=== PATIENT | male | born 1960 | race Caucasian/White ===

== ENCOUNTER 2018-09-16 13:07 | Inpatient (IN) | payer MEDICAID, MEDICARE ==
[~2018-09-16] VITALS: Ht 167.6 cm; Wt 68.0 kg
[~2018-09-16 13:07] MED LIST: CARV12.53 PO; CARV3.12 PO; CARV3.122 PO; FURO20TA4 PO; FURO40TA4 PO; LISI2.5T PO; LOVA10TA PO; LOVA20TA2 PO; POTA10TA36 PO
--- NOTE | 2018-09-16 13:30 | NUR ---
TO ROOM NO NEW C/O
[2018-09-16] MEDS ORDERED: ONDANSETRON 4 MG/2 ML (SDV) Z0FRAN IVP ONE (13:45)
[2018-09-16] MEDS ORDERED: NS IV 1000 ML 1,000 ML IV SCH (13:45)
[2018-09-16] MEDS ORDERED: fentaNYL INJECTION 100 MCG/2 ML AMP IVP ONE ×2 (13:45→14:30)
[2018-09-16 13:56] LABS: BASOPHILS % (AUTO) 0 % (0-10); EOSINOPHILS # (AUTO) 0.1 10^3/uL (0.0-0.3); EOSINOPHILS % (AUTO) 0 % (0-10); HEMATOCRIT 48 % (40-54); HEMOGLOBIN 16.7 G/DL (13.3-17.7); LYMPHOCYTES # (AUTO) 1.3 X 10^3 (1.0-4.0); LYMPHOCYTES % (AUTO) 9 % (12-44); MEAN CORPUSCULAR HEMOGLOBIN 35 PG (25-34); MEAN CORPUSCULAR HGB CONC 35 G/DL (32-36); MEAN CORPUSCULAR VOLUME 102 FL (80-99); MONOCYTES # (AUTO) 1.3 X 10^3 (0.0-1.0); MONOCYTES % (AUTO) 9 % (0-12); NEUTROPHILS % (AUTO) 82 % (42-75); PLATELET COUNT 204 10^3/uL (130-400); WHITE BLOOD COUNT 14.6 10^3/uL (4.3-11.0)
[2018-09-16 14:13] LABS: ALANINE AMINOTRANSFERASE 30 U/L (0-55); ALBUMIN 4.6 GM/DL (3.2-4.5); ALKALINE PHOSPHATASE 42 U/L (40-136); AMYLASE 617 U/L (25-125); BILIRUBIN,TOTAL 0.6 MG/DL (0.1-1.0); BUN/CREATININE RATIO 20; CARBON DIOXIDE 19 MMOL/L (21-32); CHLORIDE 107 MMOL/L (98-107); CREATININE SERUM 0.84 MG/DL (0.60-1.30); GFR ESTIMATED > 60; GLUCOSE 134 MG/DL (70-105); LIPASE 1132 U/L (8-78); POTASSIUM 4.9 MMOL/L (3.6-5.0); SODIUM 143 MMOL/L (135-145); TOTAL PROTEIN 8.9 GM/DL (6.4-8.2)
[2018-09-16 14:22] LABS: BAND NEUTROPHILS 3 %; BASOPHILS % (MANUAL) 0 %; EOSINOPHILS % (MANUAL) 0 %; LYMPHOCYTES % (MANUAL) 10 %; MONOCYTES % (MANUAL) 3 %; NEUTROPHILS % (MANUAL) 84 %
[2018-09-16] MEDS ORDERED: PROMETHAZINE INJ 25 MG/ML (PHENERGAN) AMP IVP ONE (14:30)
[2018-09-16] MEDS ORDERED: RECEIVED CONTRAST (Hold Metformin) IV SCH (14:45)
[2018-09-16] MEDS ORDERED: IOHEXOL 350 MG/ML 100 ML (OMNIPAQUE 350) VIAL IV ONE (14:45)
[2018-09-16] MEDS ORDERED: NS 100 ML (IVPB) BAG IV ONE (14:45)
--- NOTE | 2018-09-16 15:27 | Diagnostic Imaging Report ---
INDICATION: Nausea and vomiting and abdominal pain. TECHNIQUE: CT of the abdomen and pelvis obtained with IV contrast bolus. COMPARISON: There is no prior study for comparison. FINDINGS: The visualized portions of the lung bases are clear. There were no pleural fluid collections. There is no free intraperitoneal air. The liver shows no focal lesion. Gallbladder appears unremarkable. The spleen and adrenal glands are normal. The right kidney appears normal. Left kidney shows a couple of benign-appearing cysts, the largest measuring about 4.1 cm in the lateral portion of the left kidney. There is no hydronephrosis. There is edema in the peripancreatic fat, compatible with acute pancreatitis. Some of the edema extends into the root of the mesentery as well as into the left anterior pararenal space. There are stippled calcifications in the pancreatic head and uncinate process, suggesting the patient has had previous episodes of pancreatitis as well. There is no retroperitoneal adenopathy. There is no free ascites. There is no overt bowel obstruction. There are scattered uncomplicated colonic diverticula. There are atherosclerotic calcifications of the aorta and iliac vessels. IMPRESSION: There are stippled calcifications of the pancreatic head and uncinate process which are likely the sequelae of chronic pancreatitis. There is also evidence of acute pancreatitis with edema in the peripancreatic fat, extending into the anterior pararenal space of the retroperitoneum on the left side as well as in the root of the mesentery. There is no well-defined fluid collection or ascites. Benign-appearing cysts are noted in the left kidney. Dictated by: Dictated on workstation # [id number]
--- NOTE | 2018-09-16 16:10 | ED Abdominal Pain ---
General Chief Complaint: Abdominal/GI Problems Stated Complaint: UPPER ABD PAIN AND BACK PAIN;N/V Nursing Triage Note: EPIGASTRIC PAIN STARTING THIS AM. ALSO COMPLAINS OF VOMITING. Sepsis Screen: No Definite Risk Source of Information: Patient Exam Limitations: No Limitations History of Present Illness Date Seen by Provider: Sep 16, 2018 Time Seen by Provider: 13:30 Initial Comments 57-year-old male who presents to the emergency room with complaints of severe nausea, vomiting, abdominal pain that started this morning. He reports periumbilical abdominal pain that does not radiate anywhere but is very sharp. He reports drinking 6 beers a day. Timing/Duration: 4-6 Hours Severity/Quality: Sharp Location: Periumbilical Radiation: No Radiation Associated Symptoms: Nausea/Vomiting Allergies and Home Medications Allergies Coded Allergies: No Known Drug Allergies (Unverified , 09/16/18) Home Medications Carvedilol 12.5 Mg Tablet, 12.5 MG PO BID Prescribed by: SUSI DONALDSON on 04/22/15 1346 Furosemide 40 Mg Tablet, 40 MG PO BID, (Reported) Lisinopril 2.5 Mg Tablet, 2.5 MG PO BID, (Reported) Lovastatin 10 Mg Tablet, 10 MG PO HS, (Reported) Potassium Chloride 10 Meq Tab.er.prt, 10 MEQ PO DAILY, (Reported) Patient Home Medication List Home Medication List Reviewed: Yes Review of Systems Review of Systems Constitutional: no symptoms reported, see HPI Gastrointestinal: See HPI, Abdominal Pain, Nausea, Vomiting All Other Systems Reviewed Negative Unless Noted: Yes Past Suzxjeh-Udsuuq-Grhbii Hx Past Med/Social Hx: Reviewed Nursing Past Med/Soc Hx Patient Social History Alcohol Use: Denies Use Recreational Drug Use: No Smoking Status: Never a Smoker Recent Foreign Travel: No Contact w/Someone Who Travel: No Recent Infectious Disease Expo: No Immunizations Up To Date Tetanus Booster (TDap): More than 5yrs Date of Pneumonia Vaccine: Sep 11, 2014 Date of Influenza Vaccine: Apr 21, 2015 Past Medical History Surgeries: Yes Cardiac, Pacemaker Respiratory: Yes (tobaccoism) COPD, Emphysema Currently Using CPAP: No Currently Using BIPAP: No Cardiac: No (severe nonischemic cardiomyopathy, prior episodes of ventricular tachycardi) Coronary Artery Disease, Hypertension, Peripheral Vascular Neurological: No Reproductive Disorders: No Sexually Transmitted Disease: No HIV/AIDS: No Gastrointestinal: Yes Hepatitis Musculoskeletal: No Endocrine: No Loss of Vision: Denies Hearing Impairment: Hard of Hearing Cancer: No Psychosocial: No Integumentary: No Blood Disorders: No Adverse Reaction/Blood Tranf: No Family Medical History Reviewed Nursing Family Hx ARTERIAL STENTS 19 FATHER Abdominal aortic aneurysm 19 FATHER Alcoholism 19 FATHER Coronary thrombosis 19 FATHER Hypertension 19 FATHER LYMPH NODE CANCEROUS 19 MOTHER Physical Exam Vital Signs Vital Signs - First Documented 09/16/18 13:19 Temp 97.7 Pulse 90 Resp 16 B/P (MAP) 149/94 (112) Pulse Ox 100 Capillary Refill : Less Than 3 Seconds Height/Weight/BMI Height: 5'6.00" Weight: 150lbs. 6.4oz. 68.269867an; BMI Method:Stated General Appearance: WD/WN, no apparent distress Respiratory: chest non-tender, lungs clear, normal breath sounds, no respiratory distress, no accessory muscle use Cardiovascular: normal peripheral pulses, regular rate, rhythm, no edema, no gallop, no JVD, no murmur Gastrointestinal: normal bowel sounds, soft, no organomegaly, no pulsatile mass , tenderness (periumbilical tenderness) Extremities: normal capillary refill Neurologic/Psychiatric: alert, normal mood/affect, oriented x 3 Skin: normal color, warm/dry Progress/Results/Core Measures Results/Orders Lab Results Laboratory Tests Test 09/16/18 13:45 Range/Units White Blood Count 14.6 H 4.3-11.0 10^3/uL Red Blood Count 4.74 4.35-5.85 10^6/uL Hemoglobin 16.7 13.3-17.7 G/DL Hematocrit 48 40-54 % Mean Corpuscular Volume 102 H 80-99 FL Mean Corpuscular Hemoglobin 35 H 25-34 PG Mean Corpuscular Hemoglobin Concent 35 32-36 G/DL Red Cell Distribution Width 14.0 10.0-14.5 % Platelet Count 204 130-400 10^3/uL Mean Platelet Volume 11.0 H 7.4-10.4 FL Neutrophils (%) (Auto) 82 H 42-75 % Lymphocytes (%) (Auto) 9 L 12-44 % Monocytes (%) (Auto) 9 0-12 % Eosinophils (%) (Auto) 0 0-10 % Basophils (%) (Auto) 0 0-10 % Neutrophils # (Auto) 12.0 H 1.8-7.8 X 10^3 Lymphocytes # (Auto) 1.3 1.0-4.0 X 10^3 Monocytes # (Auto) 1.3 H 0.0-1.0 X 10^3 Eosinophils # (Auto) 0.1 0.0-0.3 10^3/uL Basophils # (Auto) 0.0 0.0-0.1 10^3/uL Neutrophils % (Manual) 84 % Lymphocytes % (Manual) 10 % Monocytes % (Manual) 3 % Eosinophils % (Manual) 0 % Basophils % (Manual) 0 % Band Neutrophils 3 % Macrocytosis SLIGHT Sodium Level 143 135-145 MMOL/L Potassium Level 4.9 3.6-5.0 MMOL/L Chloride Level 107 98-107 MMOL/L Carbon Dioxide Level 19 L 21-32 MMOL/L Anion Gap 17 H 5-14 MMOL/L Blood Urea Nitrogen 17 7-18 MG/DL Creatinine 0.84 0.60-1.30 MG/DL Estimat Glomerular Filtration Rate > 60 BUN/Creatinine Ratio 20 Glucose Level 134 H 70-105 MG/DL Calcium Level 10.0 8.5-10.1 MG/DL Corrected Calcium 8.5-10.1 MG/DL Total Bilirubin 0.6 0.1-1.0 MG/DL Aspartate Amino Transf (AST/SGOT) 40 H 5-34 U/L Alanine Aminotransferase (ALT/SGPT) 30 0-55 U/L Alkaline Phosphatase 42 40-136 U/L Total Protein 8.9 H 6.4-8.2 GM/DL Albumin 4.6 H 3.2-4.5 GM/DL Amylase Level 617 H 25-125 U/L Lipase 1132 H 8-78 U/L My Orders Orders - COREEN STEVENS Comprehensive Metabolic Panel (09/16/18 13:37) Lipase (09/16/18 13:37) Amylase (09/16/18 13:37) Ua Culture If Indicated (09/16/18 13:37) Saline Lock/Iv-Start (09/16/18 13:37) Cbc With Automated Diff (09/16/18 13:37) Ct Abdomen/Pelvis W (09/16/18 13:37) Ns Iv 1000 Ml (Sodium Chloride 0.9%) (09/16/18 13:45) Fentanyl Injection (Sublimaze Injection (09/16/18 13:45) Ondansetron Injection (Zofran Injectio (09/16/18 13:45) Manual Differential (09/16/18 13:45) Fentanyl Injection (Sublimaze Injection (09/16/18 14:30) Promethazine Injection (Phenergan Injec (09/16/18 14:30) Iohexol Injection (Omnipaque 350 Mg/Ml 1 (09/16/18 14:45) Contrast Received (Contrast Received) (09/16/18 14:45) Ns (Ivpb) (Sodium Chloride 0.9% Ivpb Bag (09/16/18 14:45) Medications Given in ED Current Medications Medications Dose Ordered Sig/Russel Route Start Time Stop Time Status Last Admin Dose Admin Fentanyl Citrate 50 mcg ONCE ONCE IVP 09/16/18 13:45 09/16/18 13:46 DC 09/16/18 14:08 50 MCG Fentanyl Citrate 50 mcg ONCE ONCE IVP 09/16/18 14:30 09/16/18 14:31 DC 09/16/18 15:28 50 MCG Iohexol 100 ml ONCE ONCE IV 09/16/18 14:45 09/16/18 14:46 DC 09/16/18 14:50 100 ML Ondansetron HCl 4 mg ONCE ONCE IVP 09/16/18 13:45 09/16/18 13:46 DC 09/16/18 14:08 4 MG Promethazine HCl 25 mg ONCE ONCE IVP 09/16/18 14:30 09/16/18 14:31 DC 09/16/18 15:26 25 MG Sodium Chloride 100 ml ONCE ONCE IV 09/16/18 14:45 09/16/18 14:46 DC 09/16/18 14:50 80 ML Vital Signs/I&O 09/16/18 13:19 Temp 97.7 Pulse 90 Resp 16 B/P (MAP) 149/94 (112) Pulse Ox 100 Blood Pressure Mean: 112 Progress Progress Note : Time: 15:37 Progress Note I have seen and evaluated the patient. I've informed him of his imaging studies and laboratory results. I've informed of plans for admission. I discussed the case with Dr. Horton and she agrees to admit the patient to her services. She recommends no IV antibiotics at this time, IV fluids and pain medication and nothing by mouth status. Diagnostic Imaging Diagonstic Imaging: CT Plain Films/CT/US/NM/MRI: abdomen, pelvis Comments NAME: MELISSA ASENCIO [facility] REC#: [id number] PT STATUS: ADM IN : 1960 PHYSICIAN: COREEN STEVENS ADMIT DATE: 09/16/18 Signed Date of Exam: 09/16/18 CT ABDOMEN/PELVIS W INDICATION: Nausea and vomiting and abdominal pain. TECHNIQUE: CT of the abdomen and pelvis obtained with IV contrast bolus. COMPARISON: There is no prior study for comparison. FINDINGS: The visualized portions of the lung bases are clear. There were no pleural fluid collections. There is no free intraperitoneal air. The liver shows no focal lesion. Gallbladder appears unremarkable. The spleen and adrenal glands are normal. The right kidney appears normal. Left kidney shows a couple of benign-appearing cysts, the largest measuring about 4.1 cm in the lateral portion of the left kidney. There is no hydronephrosis. There is edema in the peripancreatic fat, compatible with acute pancreatitis. Some of the edema extends into the root of the mesentery as well as into the left anterior pararenal space. There are stippled calcifications in the pancreatic head and uncinate process, suggesting the patient has had previous episodes of pancreatitis as well. There is no retroperitoneal adenopathy. There is no free ascites. There is no overt bowel obstruction. There are scattered uncomplicated colonic diverticula. There are atherosclerotic calcifications of the aorta and iliac vessels. IMPRESSION: There are stippled calcifications of the pancreatic head and uncinate process which are likely the sequelae of chronic pancreatitis. There is also evidence of acute pancreatitis with edema in the peripancreatic fat, extending into the anterior pararenal space of the retroperitoneum on the left side as well as in the root of the mesentery. There is no well-defined fluid collection or ascites. Benign-appearing cysts are noted in the left kidney. Dictated by: Dictated on workstation # [id number] Dict: 09/16/18 1516 Trans: 09/16/18 1619 Interpreted by: MYA MEI MD Electronically signed by: MYA MEI MD 09/16/18 [id number] Reviewed: Reviewed by Me Departure Communication (Admissions) Time/Spoke to Admitting Phy: 15:37 Dr. Horton Impression Primary Impression: Acute pancreatitis Disposition: 01 HOME, SELF-CARE Condition: Stable/Unchanged Admissions Decision to Admit Reason: Admit from ER (General) Decision to Admit/Date: Sep 16, 2018 Time/Decision to Admit Time: 15:37 Departure-Patient Inst. Referrals: LATRICE HORTON DO (PCP) Primary Care Physician CODY WELLS (Family) Primary Care Physician COREEN STEVENS Sep 16, 2018 16:10
--- NOTE | 2018-09-16 16:25 | NUR ---
Report taken from TRACY Painter at this time. This RN will assume care of this patient when the patient arrives to this floor.
[2018-09-16] MEDS ORDERED: CATHETER FLUSH 10 ML SYR IV PRN (17:30)
[2018-09-16] MEDS ORDERED: PROMETHAZINE INJ 25 MG/ML (PHENERGAN) AMP IV PRN (17:30)
[2018-09-16 17:34] VITALS: BP 169/106
[2018-09-16] MEDS: fentaNYL INJECTION 100 MCG/2 ML AMP IV PRN ×3 (18:00→23:28)
[2018-09-16] MEDS: NS IV 1000 ML 1,000 ML IV SCH (18:00)
[2018-09-16] MEDS: ONDANSETRON 4 MG/2 ML (SDV) Z0FRAN IV PRN (18:00)
[2018-09-16 20:36] VITALS: BP 144/90
[2018-09-16 23:21] VITALS: BP 133/89
[2018-09-17] MEDS: NS IV 1000 ML 1,000 ML IV SCH ×3 (01:57→17:35)
[2018-09-17 03:48] VITALS: BP 136/85
[2018-09-17 04:57] LABS: BASOPHILS % (AUTO) 0 % (0-10); EOSINOPHILS % (AUTO) 0 % (0-10); HEMATOCRIT 45 % (40-54); HEMOGLOBIN 15.9 G/DL (13.3-17.7); LYMPHOCYTES # (AUTO) 1.2 X 10^3 (1.0-4.0); LYMPHOCYTES % (AUTO) 10 % (12-44); MEAN CORPUSCULAR HEMOGLOBIN 36 PG (25-34); MEAN CORPUSCULAR HGB CONC 35 G/DL (32-36); MEAN CORPUSCULAR VOLUME 101 FL (80-99); MEAN PLATELET VOLUME 11.4 FL (7.4-10.4); MONOCYTES # (AUTO) 1.4 X 10^3 (0.0-1.0); MONOCYTES % (AUTO) 11 % (0-12); NEUTROPHILS # (AUTO) 10.1 X 10^3 (1.8-7.8); NEUTROPHILS % (AUTO) 80 % (42-75); PLATELET COUNT 146 10^3/uL (130-400); RED CELL DISTRIBUTION WIDTH 14.1 % (10.0-14.5); WHITE BLOOD COUNT 12.7 10^3/uL (4.3-11.0)
[2018-09-17 05:27] LABS: ALANINE AMINOTRANSFERASE 21 U/L (0-55); ALBUMIN 3.7 GM/DL (3.2-4.5); ALKALINE PHOSPHATASE 36 U/L (40-136); AMYLASE 241 U/L (25-125); BILIRUBIN,TOTAL 0.5 MG/DL (0.1-1.0); BUN/CREATININE RATIO 17; CALCIUM 8.8 MG/DL (8.5-10.1); CARBON DIOXIDE 18 MMOL/L (21-32); CHLORIDE 112 MMOL/L (98-107); CREATININE SERUM 0.71 MG/DL (0.60-1.30); GFR ESTIMATED > 60; GLUCOSE 97 MG/DL (70-105); LIPASE 296 U/L (8-78); POTASSIUM 3.7 MMOL/L (3.6-5.0); SODIUM 143 MMOL/L (135-145); TOTAL PROTEIN 6.9 GM/DL (6.4-8.2)
[2018-09-17 08:45] VITALS: BP 132/85
[2018-09-17] MEDS: fentaNYL INJECTION 100 MCG/2 ML AMP IV PRN ×4 (09:08→23:45)
[2018-09-17] MEDS: ONDANSETRON 4 MG/2 ML (SDV) Z0FRAN IV PRN ×2 (09:08→17:35)
[2018-09-17] MEDS ORDERED: POTA10TA10 PO (11:15)
[2018-09-17] MEDS ORDERED: FURO40TA4 PO (11:15)
[2018-09-17] MEDS ORDERED: LISI2.5T PO (11:15)
[2018-09-17] MEDS ORDERED: CARV12.53 PO (11:15)
--- NOTE | 2018-09-17 11:16 | NUR ---
SPOKE WITH THE PATIENT ABOUT HIS MEDICATIONS. HE LISTED WHAT HE IS TAKING AND HOW HE TAKES THEM. I CALLED TOMY IN [place] TO VERIFY WHAT HAS BEEN FILLED. TOMY FILLED: 08-27-18 LISINOPRIL 2.5MG DAILY 08-27-18 CARVEDILOL 12.5MG BID 03-06-18 FUROSEMIDE 40MG 2 DAILY #180 (STATES HE ONLY TAKES 1 SOMETIMES BUT IS STILL PAST DUE FOR REFILL) 01-14-18 POTASSIUM 10MEQ DAILY #90 (PAST DUE FOR REFILL) 01-17-18 LOVASTATIN 40MG HS #30 (STATES HE IS NO LONGER TAKING, CAN NOT AFFORD) HE STATES HE DOES NOT TAKE ANYTHING OTC.
--- NOTE | 2018-09-17 11:45 | History & Physicial ([facility]) ---
HPI History of Present Illness: 57 yo male presented to ER yesterday due to nausea, vomiting and upper abdominal pain so severe he wanted to pass out. He denies fever, diarrhea, constipation. He was found to have elevated lipase and CT findings consistent with acute and chronic pancreatitis. He denies known history of pancreatitis, but drinks 6-12 beers every day. He is also a smoker. He states he has had heart problems- fluid on lungs and is supposed to be on medications, but hasn't been taking all of them due to cost. He also notes a lump in his right neck for 4-5 months that he had a CT scan done for which was apparently concerning for cancer, he did not follow up right away due to cost concerns, but was having increasing pain and called back for referral and is to see ENT Saturday. He denies unintentional weight loss, states he has always had night sweats his whole life. Source: patient Date seen by provider: Sep 17, 2018 Time Seen by Provider: 10:03 Attending Physician Kanu Bruner MD PCP Nani Horton DO Consult Date of Admission Sep 16, 2018 at 16:00 Home Medications Home Medications Reviewed patient Home Medication Reconciliation performed by pharmacy medication reconciliations accounts payable technician and/or nursing. Patients Allergies have been reviewed. Allergies Coded Allergies: No Known Drug Allergies (Unverified , 09/16/18) OXU-Fyeagi-Dafmmw Hx Patient Social History Alcohol Use: Regular Use Recreational Drug Use: No Smoking Status: Never a Smoker Recent Foreign Travel: No Contact w/other who traveled: No Recent Hopitalizations: No Recent Infectious Disease Expo: No Physical Abuse Screen: No Sexual Abuse: No Immunizations Up To Date Tetanus Booster (TDap): More than 5yrs Date of Pneumonia Vaccine: Sep 11, 2014 Date of Influenza Vaccine: Apr 21, 2015 Past Medical History 1. 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 Chronic Alcohol Use 3. Hepatitis C 4. Tobaccoism 5. Non-compliance with follow up and with medications 6. Coronary Artery Disease- mild non-obstructive to left cx 40% per cath 09/26- [facility] 7. Mild non obstructive atherosclerotic disease in his legs per cath 09/26 8. Several episodes of sinus tach in the V-Tach zone that required ATP per Device Check 02-27-15 9. COPD Past Surgical History 1. Bi-V ICD implantation [facility] 2. Cardiac Cath 09/26 demonstrating minimal non-obstructive coronary artery disease 40% left cx Family Medical History Significant Family History: AAA, Heart Disease, Hypertension Family History: ARTERIAL STENTS 19 FATHER Abdominal aortic aneurysm 19 FATHER Alcoholism 19 FATHER Coronary thrombosis 19 FATHER Hypertension 19 FATHER LYMPH NODE CANCEROUS 19 MOTHER Review of Systems ([facility]) Constitutional: see HPI EENTM: see HPI Respiratory: short of breath Cardiovascular: No chest pain Gastrointestinal: see HPI Genitourinary: no symptoms reported Musculoskeletal: no symptoms reported Skin: no symptoms reported Psychiatric/Neurological: No Symptoms Reported Reviewed Test Results Reviewed Test Results Lab Laboratory Tests Test 09/16/18 13:45 09/17/18 04:05 Range/Units White Blood Count 14.6 H 12.7 H 4.3-11.0 10^3/uL Red Blood Count 4.74 4.48 4.35-5.85 10^6/uL Hemoglobin 16.7 15.9 13.3-17.7 G/DL Hematocrit 48 45 40-54 % Mean Corpuscular Volume 102 H 101 H 80-99 FL Mean Corpuscular Hemoglobin 35 H 36 H 25-34 PG Mean Corpuscular Hemoglobin Concent 35 35 32-36 G/DL Red Cell Distribution Width 14.0 14.1 10.0-14.5 % Platelet Count 204 146 130-400 10^3/uL Mean Platelet Volume 11.0 H 11.4 H 7.4-10.4 FL Neutrophils (%) (Auto) 82 H 80 H 42-75 % Lymphocytes (%) (Auto) 9 L 10 L 12-44 % Monocytes (%) (Auto) 9 11 0-12 % Eosinophils (%) (Auto) 0 0 0-10 % Basophils (%) (Auto) 0 0 0-10 % Neutrophils # (Auto) 12.0 H 10.1 H 1.8-7.8 X 10^3 Lymphocytes # (Auto) 1.3 1.2 1.0-4.0 X 10^3 Monocytes # (Auto) 1.3 H 1.4 H 0.0-1.0 X 10^3 Eosinophils # (Auto) 0.1 0.0 0.0-0.3 10^3/uL Basophils # (Auto) 0.0 0.0 0.0-0.1 10^3/uL Neutrophils % (Manual) 84 % Lymphocytes % (Manual) 10 % Monocytes % (Manual) 3 % Eosinophils % (Manual) 0 % Basophils % (Manual) 0 % Band Neutrophils 3 % Macrocytosis SLIGHT Sodium Level 143 143 135-145 MMOL/L Potassium Level 4.9 3.7 3.6-5.0 MMOL/L Chloride Level 107 112 H 98-107 MMOL/L Carbon Dioxide Level 19 L 18 L 21-32 MMOL/L Anion Gap 17 H 13 5-14 MMOL/L Blood Urea Nitrogen 17 12 7-18 MG/DL Creatinine 0.84 0.71 0.60-1.30 MG/DL Estimat Glomerular Filtration Rate > 60 > 60 BUN/Creatinine Ratio 20 17 Glucose Level 134 H 97 70-105 MG/DL Calcium Level 10.0 8.8 8.5-10.1 MG/DL Corrected Calcium 9.0 8.5-10.1 MG/DL Total Bilirubin 0.6 0.5 0.1-1.0 MG/DL Aspartate Amino Transf (AST/SGOT) 40 H 25 5-34 U/L Alanine Aminotransferase (ALT/SGPT) 30 21 0-55 U/L Alkaline Phosphatase 42 36 L 40-136 U/L Total Protein 8.9 H 6.9 6.4-8.2 GM/DL Albumin 4.6 H 3.7 3.2-4.5 GM/DL Amylase Level 617 H 241 H 25-125 U/L Lipase 1132 H 296 H 8-78 U/L Radiology CT abdomen/pelvis 09/16/18: IMPRESSION: There are stippled calcifications of the pancreatic head and uncinate process which are likely the sequelae of chronic pancreatitis. There is also evidence of acute pancreatitis with edema in the peripancreatic fat, extending into the anterior pararenal space of the retroperitoneum on the left side as well as in the root of the mesentery. There is no well-defined fluid collection or ascites. Benign-appearing cysts are noted in the left kidney. Physical Exam-([facility]) Physical Exam Vital Signs VS - Last 72 Hours, by Label 09/16/18 09/16/18 09/16/18 09/16/18 13:19 16:28 17:34 18:36 Temp 97.7 97.7 Pulse 90 86 86 Resp 16 18 18 B/P (MAP) 149/94 (112) 169/106 (127) 169/106 Pulse Ox 100 99 99 99 O2 Delivery Room Air Room Air Room Air 09/16/18 09/16/18 09/16/18 09/17/18 20:00 20:36 23:21 03:48 Temp 98.5 98.2 Pulse 92 90 91 Resp 18 18 16 B/P (MAP) 144/90 (108) 133/89 (104) 136/85 (102) Pulse Ox 97 99 97 O2 Delivery Room Air Room Air Room Air Room Air 09/17/18 08:00 O2 Delivery Room Air Capillary Refill : Less Than 3 Seconds General Appearance: no apparent distress Neck: other (indurated about 4 cm lump in right neck just below mandible) Respiratory: lungs clear, normal breath sounds Cardiovascular: regular rate, rhythm, no murmur Gastrointestinal: normal bowel sounds, soft, tenderness (epigastric) Extremities: no pedal edema Neurologic/Psychiatric: alert, normal mood/affect Skin: warm/dry Assessment/Plan Assessment/Plan Admission Dx Acute pancreatitis Admission Status: Inpatient Order (span 2 midnights) Reason for Inpatient Admission: Acute pancreatitis with severe cardiomyopathy at high risk for decompensation. (1) Acute pancreatitis Status: Acute Assessment & Plan: Improved this am with IVF and NPO overnight, will advance to merigolds. Discussed alcohol cessation. Qualifiers: Qualified Codes: K85.20 - Alcohol induced acute pancreatitis without necrosis or infection (2) Chronic systolic (congestive) heart failure Status: Chronic Assessment & Plan: Nonischemic, likely secondary to alcohol use, last EF documented here 2014 was 15%. Noncompliant with follow up and medications. Resume home medications. No evidence of decompensation currently. (3) Neck mass Status: Acute Assessment & Plan: Reiterated importance of attending visit on Saturday with ENT. (4) DVT prophylaxis Status: Acute Assessment & Plan: Enoxaparin Clinical Quality Measures DVT/VTE Risk/Contraindication: Risk Factor Score Per Nursin RFS Level Per Nursing on Admit: 4+=Very High KANU BRUNER MD Sep 17, 2018 11:45
[2018-09-17 12:00] VITALS: BP 139/86
[2018-09-17] MEDS: ENOXAPARIN 40 MG/0.4 ML (LOVENOX) SYR SQ SCH (12:29)
--- NOTE | 2018-09-17 14:15 | NUR ---
Pastoral care visit, pt asleep.
[2018-09-17 16:53] VITALS: BP 154/93
[2018-09-17 19:45] VITALS: BP 142/79
[2018-09-17] MEDS: CARVEDILOL 12.5 MG (COREG) TABLET PO SCH (20:11)
[2018-09-17 23:33] VITALS: BP 129/76
[2018-09-18] MEDS: NS IV 1000 ML 1,000 ML IV SCH (01:42)
[2018-09-18 03:50] VITALS: BP 136/80
[2018-09-18 04:33] LABS: HEMOGLOBIN 14.2 G/DL (13.3-17.7); WHITE BLOOD COUNT 9.6 10^3/uL (4.3-11.0)
[2018-09-18 05:09] LABS: ALANINE AMINOTRANSFERASE 16 U/L (0-55); ALBUMIN 3.3 GM/DL (3.2-4.5); ALKALINE PHOSPHATASE 29 U/L (40-136); BILIRUBIN,TOTAL 0.8 MG/DL (0.1-1.0); BUN/CREATININE RATIO 12; CALCIUM 8.3 MG/DL (8.5-10.1); CARBON DIOXIDE 21 MMOL/L (21-32); CHLORIDE 111 MMOL/L (98-107); CREATININE SERUM 0.65 MG/DL (0.60-1.30); GFR ESTIMATED > 60; GLUCOSE 96 MG/DL (70-105); POTASSIUM 3.7 MMOL/L (3.6-5.0); SODIUM 140 MMOL/L (135-145); TOTAL PROTEIN 6.2 GM/DL (6.4-8.2)
[2018-09-18 08:00] VITALS: BP 140/83
[2018-09-18] MEDS: KCL 10 MEQ TAB (MICRO K) PO SCH (08:27)
[2018-09-18] MEDS: CARVEDILOL 12.5 MG (COREG) TABLET PO SCH ×2 (08:27→20:39)
[2018-09-18] MEDS: lisINopril 5 MG (PRINIVIL) TABLET PO SCH (08:28)
[2018-09-18] MEDS: FUROSEMIDE 40 MG (LASIX) TAB PO SCH (08:28)
--- NOTE | 2018-09-18 08:30 | NUR ---
IVF DC'D AND DIET CHANGED TO HEART HEALTHY PER ORDER.
--- NOTE | 2018-09-18 10:07 | Progress Note (SOAP) ---
Subjective Subjective/Events-last exam Afebrile, no acute events. Tolerated clear liquids fairly well, reports intermittent waves of pain and nausea. Is interested in advancing diet. Review of Systems Date Seen by Provider: Sep 18, 2018 Time Seen by Provider: 07:35 Objective Exam Last Set of Vital Signs Vital Signs Date Time Temp Pulse Resp B/P (MAP) Pulse Ox O2 Delivery O2 Flow Rate FiO2 09/18/18 08:00 98.7 78 18 140/83 (102) 100 Room Air Capillary Refill : Less Than 3 Seconds I&O Intake and Output 09/18/18 00:00 Intake Total 2700 ml Output Total 2 ml Balance 2698 ml Intake Oral 700 ml IV Total 2000 ml Output Urine Total 2 ml # Voids 4 General: Alert, No Acute Distress Lungs: Clear to Auscultation Heart: Regular Rate, No Murmurs Abdomen: Normal Bowel Sounds, Soft, Other (moderate to severe epigastric ttp) Extremities: No Edema Psych/Mental Status: Mental Status NL Results/Procedures Lab Laboratory Tests 09/18/18 04:15: White Blood Count 9.6, Red Blood Count 4.11L, Hemoglobin 14.2, Hematocrit 43, Mean Corpuscular Volume 104H, Mean Corpuscular Hemoglobin 35H, Mean Corpuscular Hemoglobin Concent 33, Red Cell Distribution Width 14.0, Platelet Count 125L, Mean Platelet Volume 11.0H, Sodium Level 140, Potassium Level 3.7, Chloride Level 111H, Carbon Dioxide Level 21, Anion Gap 8, Blood Urea Nitrogen 8, Creatinine 0.65, Estimat Glomerular Filtration Rate > 60, BUN/Creatinine Ratio 12, Glucose Level 96, Calcium Level 8.3L, Corrected Calcium 8.9, Total Bilirubin 0.8, Aspartate Amino Transf (AST/SGOT) 19, Alanine Aminotransferase ( ALT/SGPT) 16, Alkaline Phosphatase 29L, Total Protein 6.2L, Albumin 3.[address] abdomen/pelvis 09/16/18: IMPRESSION: There are stippled calcifications of the pancreatic head and uncinate process which are likely the sequelae of chronic pancreatitis. There is also evidence of acute pancreatitis with edema in the peripancreatic fat, extending into the anterior pararenal space of the retroperitoneum on the left side as well as in the root of the mesentery. There is no well-defined fluid collection or ascites. Benign-appearing cysts are noted in the left kidney. Assessment/Plan Assessment/Plan (1) Acute pancreatitis Status: Acute Assessment & Plan: Improved this am with IVF and NPO overnight, will advance to clears. Discussed alcohol cessation. 09/18 continued improvement but still requiring intermittent fentanyl. Advance diet as tolerated. Hold IVF given history of severe CHF and monitor intake closely. Qualifiers: Qualified Codes: K85.20 - Alcohol induced acute pancreatitis without necrosis or infection (2) Chronic systolic (congestive) heart failure Status: Chronic Assessment & Plan: Nonischemic, likely secondary to alcohol use, last EF documented here 2014 was 15%. Noncompliant with follow up and medications. Resume home medications. No evidence of decompensation currently. 09/18 remains stable, hold IVF and monitor closely. (3) Neck mass Status: Acute Assessment & Plan: Reiterated importance of attending visit on Saturday with ENT. (4) DVT prophylaxis Status: Acute Assessment & Plan: Enoxaparin Clinical Quality Measures DVT/VTE Risk/Contraindication: Risk Factor Score Per Nursin RFS Level Per Nursing on Admit: 4+=Very High KANU CISNEROS MD Sep 18, 2018 10:07
[2018-09-18 12:00] VITALS: BP 120/81
[2018-09-18] MEDS ORDERED: FLU QUADRIvalent (5+ YOA) 2018-2019 (AFLURIA) 0.5 ML IM ONE (12:45)
[2018-09-18] MEDS: ENOXAPARIN 40 MG/0.4 ML (LOVENOX) SYR SQ SCH (13:09)
[2018-09-18 16:09] VITALS: BP 122/74
[2018-09-18 20:33] VITALS: BP 125/83
[2018-09-18 23:56] VITALS: BP 131/76
[2018-09-19 04:03] VITALS: BP 119/74
[2018-09-19 05:54] LABS: HEMOGLOBIN 14.6 G/DL (13.3-17.7); MEAN PLATELET VOLUME 11.4 FL (7.4-10.4); RED CELL DISTRIBUTION WIDTH 13.3 % (10.0-14.5); WHITE BLOOD COUNT 7.2 10^3/uL (4.3-11.0)
[2018-09-19 06:17] LABS: ALANINE AMINOTRANSFERASE 14 U/L (0-55); ALBUMIN 3.4 GM/DL (3.2-4.5); ALKALINE PHOSPHATASE 33 U/L (40-136); BILIRUBIN,TOTAL 0.6 MG/DL (0.1-1.0); BUN/CREATININE RATIO 17; CALCIUM 8.7 MG/DL (8.5-10.1); CARBON DIOXIDE 20 MMOL/L (21-32); CHLORIDE 110 MMOL/L (98-107); GFR ESTIMATED > 60; GLUCOSE 104 MG/DL (70-105); POTASSIUM 3.4 MMOL/L (3.6-5.0); SODIUM 139 MMOL/L (135-145); TOTAL PROTEIN 6.6 GM/DL (6.4-8.2)
[2018-09-19] MEDS ORDERED: FURO40TA4 PO (06:32)
[2018-09-19] MEDS ORDERED: POTA10TA10 PO (06:32)
[2018-09-19] MEDS ORDERED: ONDA4TAB10 PO (06:32)
[2018-09-19 08:00] VITALS: BP 135/74
[2018-09-19] MEDS: CARVEDILOL 12.5 MG (COREG) TABLET PO SCH (09:03)
[2018-09-19] MEDS: KCL 10 MEQ TAB (MICRO K) PO SCH (09:03)
[2018-09-19] MEDS: lisINopril 5 MG (PRINIVIL) TABLET PO SCH (09:04)
[2018-09-19] MEDS: FUROSEMIDE 40 MG (LASIX) TAB PO SCH (09:04)
[2018-09-19 12:00] VITALS: BP 118/75
[2018-09-19] MEDS: ENOXAPARIN 40 MG/0.4 ML (LOVENOX) SYR SQ SCH (12:00)
--- NOTE | 2018-09-19 13:00 | Discharge Instructions ---
Discharge [facility] Discharge Medications New, Converted or Re-Newed RX: Transmitted to Pharmacy New Medications: Ondansetron HCl (Ondansetron HCl) 4 Mg Tablet 4 MG PO Q4H PRN for maria del rosario, #20 TAB 0 Refills Continued Medications: Carvedilol (Carvedilol) 12.5 Mg Tablet 12.5 MG PO BID, TAB Furosemide (Furosemide) 40 Mg Tablet 40-80 MG PO DAILY, #30 TAB 0 Refills (This prescription has been renewed) LAST FILLED #180 03-06-18 Lisinopril (Lisinopril) 2.5 Mg Tablet 2.5 MG PO DAILY, TAB Potassium Chloride (Potassium Chloride) 10 Meq Tablet.er 10 MEQ PO DAILY, #30 TAB 0 Refills (This prescription has been renewed) LAST FILLED #90 01-14-18 Patient Instructions Goal/Follow Up Appt: Follow up with Dr. Cagle on 09/26 at 9:40 am. Patient Instructions: Be sure to keep your appointment Saturday with Dr. Arenas for your neck mass. Return to The [facility] For: Fever, inability to keep down medications, shortness of breath Activity & Diet Discharge Diet: Low Sodium Diet, Cardiac Diet Activity as Tolerated: Yes Copy Copies To 1: RAD CAGLE MD, BETHANY N MD Sep 19, 2018 06:33
--- NOTE | 2018-09-19 13:21 | Discharge Summary ---
Diagnosis/Chief Complaint Date of Admission Sep 16, 2018 at 16:00 Date of Discharge Admission Diagnosis Admission Diagnosis See problem list Discharge Diagnosis See problem list Problems/Diagnosis: (1) Acute pancreatitis Assessment & Plan: Improved this am with IVF and NPO overnight, advanced to cardiac diet by day of d/c. Discussed alcohol cessation and he declined assistance. Qualifiers: Qualified Codes: K85.20 - Alcohol induced acute pancreatitis without necrosis or infection Status: Acute (2) Chronic systolic (congestive) heart failure Assessment & Plan: Nonischemic, likely secondary to alcohol use, last EF documented here 2014 was 15%. Noncompliant with follow up and medications. Resume home medications. No evidence of decompensation currently. Refilled lasix , potassium and statin on d/c and encouraged he take them regularly. Status: Chronic (3) Neck mass Assessment & Plan: Reiterated importance of attending visit on Saturday with ENT. Status: Acute Chief Complaint/HPI Chief Complaint/HPI 57 yo male presented to ER yesterday due to nausea, vomiting and upper abdominal pain so severe he wanted to pass out. He denies fever, diarrhea, constipation. He was found to have elevated lipase and CT findings consistent with acute and chronic pancreatitis. He denies known history of pancreatitis, but drinks 6-12 beers every day. He is also a smoker. He states he has had heart problems- fluid on lungs and is supposed to be on medications, but hasn't been taking all of them due to cost. He also notes a lump in his right neck for 4-5 months that he had a CT scan done for which was apparently concerning for cancer, he did not follow up right away due to cost concerns, but was having increasing pain and called back for referral and is to see ENT Saturday. He denies unintentional weight loss, states he has always had night sweats his whole life. Discharge Summary-Simple/Stand Consultations Discharge Physical Examination Allergies: Coded Allergies: No Known Drug Allergies (Unverified , 09/16/18) Vitals & I&Os Vital Sign - Last 12Hours Date Time Temp Pulse Resp B/P (MAP) Pulse Ox O2 Delivery O2 Flow Rate FiO2 09/19/18 12:00 97.9 86 18 118/75 (89) 100 Room Air Intake and Output 09/19/18 00:00 Intake Total 1620 ml Balance 1620 ml General Appearance: Alert, No Acute Distress Respiratory: Clear to Auscultation, Normal Air Movement Cardiovascular: Regular Rate, No Murmurs Neuro: Normal Gait Psych/Mental Status: Mental Status NL Hospital Course Was the Problem List Reviewed?: Yes See final discharge diagnosis. Labs Laboratory Tests Test 09/18/18 04:15 09/19/18 05:30 Range/Units White Blood Count 9.6 7.2 4.3-11.0 10^3/uL Red Blood Count 4.11 L 4.21 L 4.35-5.85 10^6/uL Hemoglobin 14.2 14.6 13.3-17.7 G/DL Hematocrit 43 43 40-54 % Mean Corpuscular Volume 104 H 103 H 80-99 FL Mean Corpuscular Hemoglobin 35 H 35 H 25-34 PG Mean Corpuscular Hemoglobin Concent 33 34 32-36 G/DL Red Cell Distribution Width 14.0 13.3 10.0-14.5 % Platelet Count 125 L 112 L 130-400 10^3/uL Mean Platelet Volume 11.0 H 11.4 H 7.4-10.4 FL Sodium Level 140 139 135-145 MMOL/L Potassium Level 3.7 3.4 L 3.6-5.0 MMOL/L Chloride Level 111 H 110 H 98-107 MMOL/L Carbon Dioxide Level 21 20 L 21-32 MMOL/L Anion Gap 8 9 5-14 MMOL/L Blood Urea Nitrogen 8 10 7-18 MG/DL Creatinine 0.65 0.60 0.60-1.30 MG/DL Estimat Glomerular Filtration Rate > 60 > 60 BUN/Creatinine Ratio 12 17 Glucose Level 96 104 70-105 MG/DL Calcium Level 8.3 L 8.7 8.5-10.1 MG/DL Corrected Calcium 8.9 9.2 8.5-10.1 MG/DL Total Bilirubin 0.8 0.6 0.1-1.0 MG/DL Aspartate Amino Transf (AST/SGOT) 19 20 5-34 U/L Alanine Aminotransferase (ALT/SGPT) 16 14 0-55 U/L Alkaline Phosphatase 29 L 33 L 40-136 U/L Total Protein 6.2 L 6.6 6.4-8.2 GM/DL Albumin 3.3 3.4 3.2-4.5 GM/DL Radiology Reviewed CT abdomen/pelvis 09/16/18: IMPRESSION: There are stippled calcifications of the pancreatic head and uncinate process which are likely the sequelae of chronic pancreatitis. There is also evidence of acute pancreatitis with edema in the peripancreatic fat, extending into the anterior pararenal space of the retroperitoneum on the left side as well as in the root of the mesentery. There is no well-defined fluid collection or ascites. Benign-appearing cysts are noted in the left kidney. Discharge Instructions to patient/family Please see electronic discharge instructions given to patient. Discharge Medications Reviewed and agree with Discharge Medication list on patient's Discharge Instruction sheet Clinical Quality Measures DVT/VTE Risk/Contraindication: Risk Factor Score Per Nursin RFS Level Per Nursing on Admit: 4+=Very High Copy Copies To 1: RAD CAGLE MD, BETHANY N MD Sep 19, 2018 13:21
--- NOTE | 2018-09-19 13:40 | NUR ---
MELISSA ASENCIO demonstrates understanding of discharge instructions and accurately returns instructions upon questioning. Copy of Post-Discharge Instructions and Medication Discharge Instructions given to . MELISSA ASENCIO is able to manage continuing needs after discharge. Patients belongings returned to patient. Skin dry and intact; no breakdown noted. Patient discharged from [facility] on 09/19/18 at 1415. MELISSA ASENCIO left floor via w/c, accompanied by staff.
[2018-09-19 14:11] VITALS: BP 118/75
== END 2018-09-19 14:15 | disposition home or self-care (01) | DRG 439 ==
LOC: EDUNIT# 13:07 → ER 13:09 → 4TH 16:00
PROVIDERS: ADMIT Family Medicine; ATTEND Family Medicine
DX: K85.20 Alcohol induced acute pancreatitis without necrosis or infection (principal); I42.6 Alcoholic cardiomyopathy; I11.0 Hypertensive heart disease with heart failure; I50.22 Chronic systolic (congestive) heart failure; R22.1 Localized swelling, mass and lump, neck; F10.20 Alcohol dependence, uncomplicated; F17.200 Nicotine dependence, unspecified, uncomplicated; B19.20 Unspecified viral hepatitis C without hepatic coma; I25.10 Atherosclerotic heart disease of native coronary artery without angina pectoris; J43.9 Emphysema, unspecified; I70.209 Unspecified atherosclerosis of native arteries of extremities, unspecified extremity; Z91.120 Patient's intentional underdosing of medication regimen due to financial hardship; Z95.0 Presence of cardiac pacemaker
CPT/HCPCS: 36415; 74177; 80053; 82150; 83690; 85007; 85025; 85027

== ENCOUNTER → 2018-10-14 | Outpatient (CLI) | payer MEDICARE ==
[~2018-10-14] MED LIST changes: +IOHEXOL 350 MG/ML 100 ML (OMNIPAQUE 350) VIAL IV ONE; +NS 100 ML (IVPB) BAG IV ONE; +ONDA4TAB10 PO; +POTA10TA10 PO; +RECEIVED CONTRAST 20 ML VIAL IV SCH
[2018-10-14 08:34] LABS: BUN/CREATININE RATIO 22; CREATININE SERUM 0.81 MG/DL (0.60-1.30); GFR ESTIMATED > 60
--- NOTE | 2018-10-14 14:16 | Diagnostic Imaging Report ---
INDICATION: Tonsillar cancer. TECHNIQUE: CT chest obtained with IV contrast bolus. COMPARISON: There is no prior study for comparison. FINDINGS: There is a multilead pacemaker device in place. There are no enlarged mediastinal or hilar nodes. There is no pleural or pericardial fluid. There are no enlarged axillary nodes or chest wall lesions. Lung parenchymal windows demonstrate moderate emphysematous changes and some parenchymal scarring and/or atelectasis in the lower lobes on both sides. There is no discrete nodule or consolidation. There is a lytic lesion in the right humeral head, recommend shoulder views for further evaluation. Visualized portions of the upper abdomen demonstrate some pancreatic head calcifications compatible with chronic pancreatitis as well as some benign-appearing cysts in the left kidney. There are coronary artery calcifications present. IMPRESSION: There are moderate emphysematous changes of both lungs. There is no pulmonary parenchymal nodule or infiltrate. There is some dependent atelectatic change in the lung bases. There is no discrete adenopathy in the mediastinum or corie. Pacemaker device is in place. There is a lytic lesion in the right humeral head, recommend further evaluation with right shoulder views. There are calcifications in the pancreatic head compatible with chronic pancreatitis. There are benign-appearing cysts in the left kidney. Dictated by: Dictated on workstation # [id number]
--- NOTE | 2018-10-14 16:50 | Diagnostic Imaging Report ---
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 Studies performed for initial staging. TECHNIQUE: Serum blood glucose level at the time of injection is 97 mg/dL. The patient was administered 12.4 mCi F-18 FDG intravenously in the right antecubital location and PET imaging was performed from the top of the skull to mid thighs. Noncontrast CT was also performed for attenuation correction and anatomic correlation. COMPARISON: No prior PET studies available for comparison. FINDINGS: There is physiologic activity in the brain. There is a focus of abnormal hypermetabolism in the lateral portion of the right oropharynx, likely accounting for patient's known primary neoplasm in the region of the right tonsil. This demonstrates SUVmax of approximately 6. Lateral and slightly posterior to this is a conglomerate activity consistent with activity within right-sided level II lymph nodes. This demonstrates an SUVmax approximately 6.1. Slightly more inferiorly, there is an additional lymph node just deep to the right sternocleidomastoid muscle demonstrating FDG avidity and SUVmax of approximately 3.8. The left neck tissues are unremarkable. No other abnormality in the neck is seen. Imaging through the chest demonstrates normal activity in the mediastinum. No hypermetabolic mediastinal or hilar lymphadenopathy is seen. The pulmonary parenchyma is without abnormal uptake. Abdomen and pelvis demonstrate physiologic activity in the GI and tracts. No suspicious hypermetabolism is detected. Imaging of the bony structures is unremarkable. Specifically no abnormal activity in the lytic lesion in the right humerus described on a recent CT chest is identified. IMPRESSION: Abnormal PET/CT demonstrating FDG avidity in the right lateral aspect of the oropharynx, likely within patient's known right tonsillar carcinoma. There appear to be hypermetabolic lymph nodes in the right neck, as described consistent with metastatic disease. No other suspicious regions of hypermetabolism are identified. Dictated by: Dictated on workstation # [id number]
== END ==
LOC: RAD 08:07
PROVIDERS: ATTEND Otolaryngology Otolaryngology/Facial Plastic Surgery
DX: C09.9 Malignant neoplasm of tonsil, unspecified (principal); J43.9 Emphysema, unspecified; J98.11 Atelectasis; M89.9 Disorder of bone, unspecified; K86.89 Other specified diseases of pancreas; N28.1 Cyst of kidney, acquired; Z95.0 Presence of cardiac pacemaker
CPT/HCPCS: 36415; 71260; 82565; 84520

== ENCOUNTER → 2018-10-23 | Outpatient (CLI) | payer MEDICARE ==
--- NOTE | 2018-10-23 15:43 | Diagnostic Imaging Report ---
PROCEDURE: CT neck soft tissue with contrast. TECHNIQUE: Multiple contiguous axial images were obtained through the neck after the administration of contrast. INDICATION: Tonsillar cancer. COMPARISON: CT chest of 10/14/2018. PET/CT also of 10/14/2018. FINDINGS: Soft tissue mass within the right palatine tonsil has heterogeneous peripheral enhancement and measures approximately 2.0 x 1.6 x 2.0 cm. This does not cross midline or have definitive involvement of the intrinsic musculature of the tongue. There does appear to be involvement of the superficial aspect of the tongue base. No extension into the nasopharynx or soft palate. Multiple abnormal enlarged right-sided cervical lymph nodes are compatible with metastatic disease. This includes a large conglomeration of lymph nodes involving the right level IIA position with extension into the level IIB. This conglomeration measures approximately 3.2 x 1.8 cm and has a cystic necrotic lymph node within it. Abnormal metastatic lymph nodes extend along the right cervical lymph node chain at level III anterior to the jugular vein at the level of the hyoid measuring 1.4 x 1.1 cm. No level IV or V lymphadenopathy on the right. No focal osseous lesion within the cervical spine. The patient is edentulous. Visualized aspects of the brain show no space-occupying mass or hydrocephalus. Paranasal sinuses are clear. Orbits are normal in appearance. IMPRESSION: 1. 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 It also does not cross midline. 2. Multiple right cervical lymph node chain metastases with multiple solid and cystic necrotic lymph nodes present within the level II and level III. 3. These CT findings are compatible with recent PET/CT. Dictated by: Dictated on workstation # [id number]
== END ==
LOC: RAD 14:01
PROVIDERS: ATTEND Internal Medicine Hematology & Oncology
DX: C09.9 Malignant neoplasm of tonsil, unspecified (principal); C77.0 Secondary and unspecified malignant neoplasm of lymph nodes of head, face and neck
CPT/HCPCS: 70491

== ENCOUNTER 2018-11-07 10:17 | Outpatient (CLI) | payer MEDICARE ==
[~2018-11-07] VITALS: Ht 170.2 cm; Wt 68.0 kg
[~2018-11-07 10:17] MED LIST changes: -IOHEXOL 350 MG/ML 100 ML (OMNIPAQUE 350) VIAL IV ONE; -NS 100 ML (IVPB) BAG IV ONE; -RECEIVED CONTRAST 20 ML VIAL IV SCH
== END 2018-11-07 10:40 | disposition home or self-care (01) ==
LOC: PREOP 10:17
PROVIDERS: ATTEND Surgery
DX: Z01.818 Encounter for other preprocedural examination (principal)
CPT/HCPCS: 87081

== ENCOUNTER 2018-11-10 11:49 | Day surgery (SDC) | payer MEDICARE ==
[~2018-11-10] VITALS: Ht 170.2 cm; Wt 68.0 kg
[2018-11-10 12:00] VITALS: BP 128/80
[2018-11-10] MEDS ORDERED: BUP/EPI 0.5% 1:200,000 (SENSORCAINE) 30 ML VIAL ONE (12:02)
[2018-11-10] MEDS ORDERED: HEParin (CENTRAL IV FLUSH) 500 UNIT/5 ML SYR ONE (12:02)
[2018-11-10] MEDS ORDERED: LIDOCAINE 1% INJ 20 ML 20 ML VIAL ONE (12:02)
[2018-11-10] MEDS ORDERED: 0.9% SODIUM CHLORIDE PF INJ 20 ML VIAL ONE (12:02)
[2018-11-10] MEDS ORDERED: ceFAZolin 2 GM IV Premixed 50 ML ONE (12:40)
[2018-11-10] MEDS ORDERED: LACTATED RINGERS 1,000 ML IV PRN (12:53)
[2018-11-10] MEDS ORDERED: ceFAZolin 2 GM IV Premixed 50 ML IV ONE (13:00)
--- NOTE | 2018-11-10 13:26 | Progress Note-Pre Operative ---
Pre-Operative Progress Note H&P Reviewed The H&P was reviewed, patient examined and no changes noted. Time Seen by Provider: 13:24 Date H&P Reviewed: Nov 10, 2018 Time H&P Reviewed: 13:25 Pre-Operative Diagnosis: Tonsillar CA, Venous Insufficiency FLOR RENEE DO Nov 10, 2018 13:26
[2018-11-10] MEDS ORDERED: MIDAZOLAM 2 MG/2 ML (VERSED) VIAL ONE (13:31)
--- NOTE | 2018-11-10 14:24 | Progress Note-Post Operative ---
Post-Operative Progess Note Surgeon (s)/Vice President Consulting Services (s) Surgeon FLOR RENEE DO Vice President Consulting Services: Marianne Pre-Operative Diagnosis Tonsillar CA, Venous Insufficiency Post-Operative Diagnosis Same Procedure & Operative Findings Date of Procedure 11/10/18 Procedure Performed/Findings Edith-Cath placement PEG tube placement Anesthesia Type IV Sedation by B2B MANAGED SERVICE SALES EXEC Estimated Blood Loss Estimated blood loss (mL): less than 5ml Specimens/Packing Specimens Removed none FLOR RENEE DO Nov 10, 2018 14:24
[2018-11-10] MEDS ORDERED: ACHD5005 PO (14:25)
[2018-11-10] MEDS ORDERED: PROPOFOL INJECTION 50 ML IV ONE (14:26)
--- NOTE | 2018-11-10 14:27 | Discharge Inst-Surgical ---
Discharge Inst-Surgical Depart Medication/Instructions New, Converted or Re-Newed RX: RX Given to Pt/Family Patient Instructions Follow up Appt: Make appointment for 1 week. [phone] Instructions: No lifting greater than 20 pounds. No strenuous activity. May shower in 24 hours, no tub bath or soaking. Use incentive spirometer at home as directed. No Smoking Skin/Wound Care: May remove bandages in am. You need to leave the Dermabond on incision it will fall off on it's own. Symptoms to Report: Appetite Changes, Extremity Discoloration, Numbness/Tingling, Swelling Increased , Bleeding Excessive, Eyesight Changes, Pain Increased, Urine Color Change, Constipation(Persistent), Fever over 101 degree F, Pain/Pressure in chest, Urinating Difficulty, Cough Up/Vomit Blood, Heart Beat Irreg/Pounding, Pain/ Pressure in jaw, Cramps in feet or legs, Lightheadedness, Pain/Pressure in shoulder, Diarrhea(Persistent), Memory Changes Suddenly, Questions/Concerns, Weight gain consecutive days, Dizziness/Fainting, Nausea/Vomiting, Shortness of Breath, Weight gain over 2 pounds If questions or concerns contact your physician Or seek help at emergency department. Activity Activity as Tolerated: Yes Activity Instructions: Avoid Stress to Incision Driving Instructions: No Driving/Refer to Dr. Torres Discharge Diet: Other Diet (Do not eat for 24 hours, only clear liquids) If Any Problems/Questions/Issu: Contact Your Physician, Go to Emergency Room Skin/Wound Care Infection Signs and Symptoms: Increased Redness, Foul Odor of Wound, Increased Drainage, Skin Itchy or Has a Rash, Increased Swelling, Temperature Above 101 F Wound Care Comment: PEG tube care Bathing Instructions: Sponge Stitches/Memo/Dermabond Dis: Marcelinoond FLOR RENEE DO Nov 10, 2018 14:27
[2018-11-10] MEDS ORDERED: fentaNYL INJECTION 100 MCG/2 ML AMP ONE (14:58)
[2018-11-10] MEDS ORDERED: fentaNYL INJECTION 100 MCG/2 ML AMP IVP ONE (15:00)
--- NOTE | 2018-11-10 15:02 | Diagnostic Imaging Report ---
Indication: Fluoroscopy during power port insertion. Fluoroscopy was provided in the OR during power port insertion. 5 seconds of fluoroscopy was utilized. Single image demonstrates a right chest wall port with tip overlying SVC. Impression: Fluoroscopy during power port placement. Dictated by: Dictated on workstation # [id number]
[2018-11-10 15:45] VITALS: BP 135/104
--- NOTE | 2018-11-10 16:12 | NUR ---
HAS HAS WATER AND JELLO. LORTAB 5/325 MG, ONE TAB, GIVEN PO FOR C/O PEG SITE PAIN RATED 3-4.
[2018-11-10 16:15] VITALS: BP 130/88
[2018-11-10] MEDS ORDERED: HYDROcodone/APAP 5 MG/325 MG (LORTAB) TAB PO ONE (16:15)
[2018-11-10 16:50] VITALS: BP 128/80
--- NOTE | 2018-11-10 17:00 | NUR ---
LEFT ABD PEG SITE PAIN RATED 2. UP IN ROOM TO DRESS FOR HOME. DISCHARGE INSTRUCTIONS PROVIDED, INCLUDING PEG CARE. REQUESTING DISMISSAL.
[2018-11-10 17:07] VITALS: BP 128/80
--- NOTE | 2018-11-11 01:34 | OPERATIVE REPORT ---
DATE OF SERVICE: PREOPERATIVE DIAGNOSES: 1. Tonsillar cancer. 2. Venous insufficiency. POSTOPERATIVE DIAGNOSES: 1. Tonsillar cancer. 2. Venous insufficiency. PROCEDURES: 1. Port-A-Cath placement. 2. PEG tube placement. SURGEON: Francisco Lomas DO. SHAPER SETTER: Ronn Lopes DO. ANESTHESIA: IV sedation by PHARMACIST ASSISTANT. SPECIMENS: None. BLOOD LOSS: Less than 5 mL FLUIDS: Per anesthesia. POSTOPERATIVE CONDITION: Stable. INDICATION FOR PROCEDURE: The patient is a 58-year-old male who unfortunately has tonsillar cancer with venous insufficiency. We will need a Port-A-Cath for long-term IV access and a PEG tube in case he is unable to take oral food. FINDINGS: The patient had a Port-A-Cath placed right anterior chest wall, right subclavian vein. He had a PEG tube placed. PROCEDURE NOTE: After informed consent was obtained, the patient was brought to the operating room, placed on the table in supine position, sterilely prepped and draped in normal fashion. Local lidocaine was used to infiltrate the skin towards the right clavicle as well as in the right anterior chest wall then the patient placed slightly Trendelenburg, advanced an 18 gauge fine needle with negative inspiration, right under the clavicle. Good flash of blood obtained on the first attempt cannulated the subclavian vein. Removed the syringe, placed a guidewire down the needle using Seldinger technique and then checked with fluoroscopy, it was in good position and removed the needle, made a stab incision along the guidewire and then we used an 11 blade, made a pocket, made an incision in the right anterior chest wall down through the skin into subcutaneous tissue, deepened down to subcutaneous tissue with Bovie electrocautery. This place has already been infiltrated with local, then tunneled the catheter from the stab incision into the pocket and then placed the dilator over the guidewire using Seldinger technique, checked fluoroscopy, it was in good position, removed the inner portion of the dilator as well as the guidewire and then placed the catheter down using the Seldinger technique, checked fluoroscopy, it was in good position, removed the outer portion of the dilator sheath then attached the catheter to the port and then attached the locking mechanism then used a Mtz needle access the port. Good flash of blood then easily flushed with saline and then accessed again a good flash of blood and then flushed with 2 mL of heparin flush. Then, this was sutured in place down to the fascia pectoralis muscle with 3-0 Prolene suture, then the incision closing the subcutaneous tissue with 3-0 Vicryl, 2 interrupted suture, then closed the skin with 4-0 undyed Monocryl with 3 interrupted subcuticular stitches and then closed the stab incision with simple interrupted 4-0 undyed Monocryl subcuticular stitch. Area was cleaned and dried pressure dressing placed. Then we started the second procedure. Dr. Lopes did an EGD once he was in. Then, I did a PEG tube placement. The abdomen had been clipped of hair. I sterilely prepped and draped. He could see my finger pushing in the stomach at this point, then infiltrated with local and then brought the needle and through and actually into the stomach and then removed this made a stab incision with #11 blade and then placed the needle down through this incision into the stomach watched to come in. I then placed a guidewire down the needle, able to grasp this and then pulled this. Dr. Lopes did his pulling this all the way out passed and the PEG tube and he attached and then I pulled the PEG tube down through the mouth through the esophagus and into the stomach and pulled it up to the abdominal wall about 2 or 3 cm. Once the bleeding was in good position then put the locking mechanism over the top as well as the pump to hold the PEG tube in place, brought this down to the skin placed a 4 x 4 underneath. This was snug down nicely, but not too tight, so we can remove the PEG tube and see that move on the inside of the stomach. Area was cleaned and dried and a dressing placed. The patient then transferred to recovery room in stable condition. Sponge and needle counts correct at the end of the case. Job ID: [id number] DocumentID: [id number] Dictated Date: 11/10/2018 14:34:38 Geochemist Date: 11/11/2018 01:34:15 Dictated By: FRANCISCO LOMAS DO
--- NOTE | 2018-11-11 19:07 | OPERATIVE REPORT ---
DATE OF SERVICE: 11/10/2018 PREOPERATIVE DIAGNOSIS: Tonsillar cancer. ENDOSCOPIST: Tatianna Lopes DO Gastrostomy tube placement by Dr. Lomas. PROCEDURE: Esophagogastroduodenoscopy for percutaneous endoscopic gastrostomy tube placement. ANESTHESIA: Sedation per ELECTRIC METER INSPECTOR. ESTIMATED BLOOD LOSS: None. COMPLICATIONS: None. INDICATIONS: The patient is a 58-year-old male with tonsillar cancer. Dr. Lomas has discussed risks and benefits of percutaneous endoscopic gastrostomy tube placement. He understands and consent was signed on the chart. Dr. Lomas was asked me to perform the esophagogastroduodenoscopy. DESCRIPTION OF PROCEDURE: Timeout was performed. Scope was inserted into the mouth, down the esophagus, stomach and into the duodenum without difficulty. There are no polyps, masses or ulcerations in the duodenum. Scope was slowly retracted back it the stomach where it was further insufflated. There are no polyps, masses or ulcerations in the stomach. Scope was retroflexed noting a small hiatal hernia. Scope was then returned to its normal position. At this time, the stomach was insufflated. When the needle with catheter was inserted into the stomach, a snare was placed around it, which was then grasped the catheter. The wire was inserted into the stomach, which was then grasped with the snare and then drawn out through the esophagus and out the mouth. The gastrostomy tube was connected to the wire, which was then withdrawn by Abebe. See his dictation. The scope was reinserted into the esophagus and down into the stomach, which demonstrated a gastrostomy tube to be in good position. Scope was then slowly retracted back into the distal esophagus, which had no polyps, masses or ulcerations. No erythematous changes. Scope was then slowly retracted back to completely remove from the esophagus noting no other pathology. The patient tolerated procedure well without any complications. He was taken to the recovery room in stable condition. Job ID: [id number] DocumentID: [id number] Dictated Date: 11/11/2018 14:08:45 Mold Maker Apprentice Date: 11/11/2018 19:06:38 Dictated By: TATIANNA LOPES DO
== END 2018-11-10 17:07 | disposition home or self-care (01) ==
LOC: SDC 11:49
PROVIDERS: ATTEND Surgery
DX: C09.9 Malignant neoplasm of tonsil, unspecified (principal); I87.2 Venous insufficiency (chronic) (peripheral); E11.51 Type 2 diabetes mellitus with diabetic peripheral angiopathy without gangrene; G47.33 Obstructive sleep apnea (adult) (pediatric); I50.22 Chronic systolic (congestive) heart failure; G47.10 Hypersomnia, unspecified; I25.10 Atherosclerotic heart disease of native coronary artery without angina pectoris; B18.2 Chronic viral hepatitis C; F17.210 Nicotine dependence, cigarettes, uncomplicated; Z95.810 Presence of automatic (implantable) cardiac defibrillator; Z79.899 Other long term (current) drug therapy

== ENCOUNTER 2018-12-20 18:32 | Inpatient (IN) | payer MEDICARE, OTHER ==
[~2018-12-20] VITALS: Ht 170.2 cm; Wt 58.5 kg
[~2018-12-20 18:32] MED LIST changes: +ACHD5005 PO
[2018-12-20] MEDS ORDERED: morphine INJ 10 MG/ML 1ML (SYR OR VIAL) IVP STA (18:49)
[2018-12-20 18:59] LABS: BASOPHILS % (AUTO) 0 % (0-10); EOSINOPHILS % (AUTO) 1 % (0-10); HEMATOCRIT 40 % (40-54); HEMOGLOBIN 13.1 G/DL (13.3-17.7); LYMPHOCYTES % (AUTO) 18 % (12-44); MEAN CORPUSCULAR HEMOGLOBIN 33 PG (25-34); MEAN CORPUSCULAR HGB CONC 33 G/DL (32-36); MEAN CORPUSCULAR VOLUME 100 FL (80-99); MEAN PLATELET VOLUME 10.5 FL (7.4-10.4); MONOCYTES % (AUTO) 18 % (0-12); NEUTROPHILS % (AUTO) 62 % (42-75); PLATELET COUNT 120 10^3/uL (130-400); RED CELL DISTRIBUTION WIDTH 12.4 % (10.0-14.5); WHITE BLOOD COUNT 2.6 10^3/uL (4.3-11.0)
[2018-12-20 19:00] LABS: LYMPHOCYTES # (AUTO) 0.5 X 10^3 (1.0-4.0); MONOCYTES # (AUTO) 0.5 X 10^3 (0.0-1.0); NEUTROPHILS # (AUTO) 1.6 X 10^3 (1.8-7.8)
[2018-12-20] MEDS ORDERED: NS IV 1000 ML 1,000 ML IV SCH (19:00)
[2018-12-20] MEDS ORDERED: LIDOCAINE 2% VISCOUS 15 ML UDC PO ONE (19:00)
[2018-12-20] MEDS ORDERED: meTOprolol 5 MG/5 ML (LOPRESSOR) VIAL IV ONE ×2 (19:00→19:45)
--- NOTE | 2018-12-20 19:00 | ED Cardiac General ---
History of Present Illness General Chief Complaint: Chest Pain Stated Complaint: CHEST PAIN Nursing Triage Note: brought in by [facility] for defibrillator shocking and left sided chest pain. Source: patient, EMS History of Present Illness Date Seen by Provider: December 20, 2018 Time Seen by Provider: 18:32 Initial Comments 58 yo M presenting to the ED by EMS after having his defibrillator fire at least 7-8 times per the patient since 1700 tonight. He reports that he was just sitting there getting ready to start his tube feeding. He had not done anything strenuous or active. He is currently undergoing chemotherapy and radiation for throat cancer. He does have a history of heart failure and nonischemic cardiomyopathy that he had the defibrillator placed for at [facility] approximately 5 years ago. He states that he's never had thyroid like this in the past. He has a lot of pain and tenderness around the defibrillator since it has been firing. He denies any nausea or vomiting. He has been having a lot of pain in his mouth due to the radiation and chemotherapy. He denies any fever. He has been having some chills. He was recently constipated and did take some laxatives and has got him going today. Allergies and Home Medications Allergies Coded Allergies: No Known Drug Allergies (Unverified , 10/30/18) Home Medications Carvedilol 12.5 Mg Tablet, 12.5 MG PO BID, (Reported) Furosemide 40 Mg Tablet, 40-80 MG PO DAILY LAST FILLED #180 03-06-18 Prescribed by: KANU CISNEROS on 09/19/18 0632 Hydrocodone Bit/Acetaminophen 1 Tab Tab, 1 TAB PO Q6H PRN for PAIN-MODERATE Prescribed by: FLOR RENEE on 11/10/18 1425 Lisinopril 2.5 Mg Tablet, 2.5 MG PO DAILY, (Reported) Ondansetron HCl 4 Mg Tablet, 4 MG PO Q4H PRN for maria del rosario Prescribed by: KANU CISNEROS on 09/19/18 0632 Potassium Chloride 10 Meq Tablet.er, 10 MEQ PO DAILY LAST FILLED #90 01-14-18 Prescribed by: KANU CISNEROS on 09/19/18 0632 Patient Home Medication List Home Medication List Reviewed: Yes Review of Systems Review of Systems Constitutional: No fever; malaise (general malaise and not feeling well today especially), weakness (generalized) EENTM: Mouth Pain (due to chemotherapy and radiation), Mouth Swelling (due to chemotherapy and radiation), Throat Pain (taking chemotherapy and radiation), Throat Swelling (due to chemotherapy and radiation) Respiratory: Cough (occasional) Cardiovascular: See HPI, Chest Pain (around his defibrillator since it was firing), Palpitations, Other (defibrillator firing) Gastrointestinal: Constipated (a chronic issue that started having bowel movements today due to taking laxative), Difficulty Swallowing (chronic from his chemotherapy and radiation as well as the cancer), Other (poor intake today and had not gotten all of his Ensure in that he usually takes by tube feeding) Genitourinary: No Symptoms Reported Musculoskeletal: muscle stiffness (generalized) Skin: other (edema and changes to the skin around his neck from radiation) Psychiatric/Neurological: Weakness (generalized) Endocrine: Intolerance to Cold, Intolerance to Heat Hematologic/Lymphatic: Easy Bruising Past Jbjsuhm-Rmjazq-Aluric Hx Past Med/Social Hx: Reviewed Nursing Past Med/Soc Hx Patient Social History Alcohol Beverage of Choice: Beer Type Used: Cigarettes 2nd Hand Smoke Exposure: Yes Recent Foreign Travel: No Contact w/Someone Who Travel: No Recent Infectious Disease Expo: No Recent Hopitalizations: Yes (SEP 2018-PANCREATITIS) Immunizations Up To Date Tetanus Booster (TDap): More than 5yrs PED Vaccines UTD: No Date of Pneumonia Vaccine: Sep 11, 2014 Date of Influenza Vaccine: Apr 21, 2015 Seasonal Allergies Seasonal Allergies: No Past Medical History Surgeries: Yes Cardiac, Pacemaker Respiratory: No COPD, Emphysema Currently Using CPAP: No Currently Using BIPAP: No Cardiac: No (pacemaker placed sep 13 2014) Coronary Artery Disease, Hypertension, Peripheral Vascular Neurological: No Reproductive Disorders: No Sexually Transmitted Disease: No HIV/AIDS: No Genitourinary: Yes (pancreatitis) Gastrointestinal: No Hepatitis Musculoskeletal: No Endocrine: No HEENT: Yes Loss of Vision: Bilateral Hearing Impairment: Hard of Hearing Cancer: Yes (TONSIL) Did You Recieve Any Treatments: No What Type of Treatment Did You: Chemotherapy Psychosocial: No Integumentary: No Blood Disorders: No Adverse Reaction/Blood Tranf: No Family Medical History ARTERIAL STENTS 19 FATHER Abdominal aortic aneurysm 19 FATHER Alcoholism 19 FATHER Coronary thrombosis 19 FATHER Hypertension 19 FATHER LYMPH NODE CANCEROUS 19 MOTHER AAA, Heart Disease, Hypertension Physical Exam Vital Signs Vital Signs - First Documented 12/20/18 18:37 Temp 100.8 Pulse 149 Resp 14 B/P (MAP) 144/90 (108) Pulse Ox 100 Capillary Refill : Less Than 3 Seconds Height, Weight, BMI Height: 5'7.00" Weight: 126lbs. 0.0oz. 57.559560aw; 23.5 BMI Method:Actual General Appearance: Chronically ill, Cachetic HEENT: PERRL/EOMI, Other (dry mucous membranes with erythema and swelling to his tongue. Areas of white plaque consistent with thrush in his mouth mucous membranes) Neck: Full Range of Motion, Supple, Other (erythema and radiation changes to his neck) Respiratory: No Accessory Muscle Use, No Respiratory Distress, Decreased Breath Sounds; No Rales, No Stridor, No Wheezing; Other (tenderness to palpation over the defibrillator) Cardiovascular: No Murmur, Normal Peripheral Pulses, Tachycardia Gastrointestinal: No Pulsatile Mass, Non Tender, Soft, Abnormal Bowel Sounds ( hypoactive bowel sounds), Other (feeding tube in place) Rectal: Deferred Extremity: Normal Capillary Refill, Normal Range of Motion, Non Tender, No Calf Tenderness Neurologic/Psychiatric: Alert, Oriented x3 Skin: Normal Color, Warm/Dry Progress/Results/Core Measures Results/Orders Lab Results Laboratory Tests Test 12/20/18 18:40 Range/Units White Blood Count 2.6 L 4.3-11.0 10^3/uL Red Blood Count 4.03 L 4.35-5.85 10^6/uL Hemoglobin 13.1 L 13.3-17.7 G/DL Hematocrit 40 40-54 % Mean Corpuscular Volume 100 H 80-99 FL Mean Corpuscular Hemoglobin 33 25-34 PG Mean Corpuscular Hemoglobin Concent 33 32-36 G/DL Red Cell Distribution Width 12.4 10.0-14.5 % Platelet Count 120 L 130-400 10^3/uL Mean Platelet Volume 10.5 H 7.4-10.4 FL Neutrophils (%) (Auto) 62 42-75 % Lymphocytes (%) (Auto) 18 12-44 % Monocytes (%) (Auto) 18 H 0-12 % Eosinophils (%) (Auto) 1 0-10 % Basophils (%) (Auto) 0 0-10 % Neutrophils # (Auto) 1.6 L 1.8-7.8 X 10^3 Lymphocytes # (Auto) 0.5 L 1.0-4.0 X 10^3 Monocytes # (Auto) 0.5 0.0-1.0 X 10^3 Eosinophils # (Auto) 0.0 0.0-0.3 10^3/uL Basophils # (Auto) 0.0 0.0-0.1 10^3/uL Neutrophils % (Manual) 33 % Lymphocytes % (Manual) 18 % Monocytes % (Manual) 21 % Eosinophils % (Manual) 2 % Metamyelocytes % 2 % Band Neutrophils 24 % Platelet Estimate DECREASED Prothrombin Time 14.2 12.2-14.7 SEC INR Comment 1.1 0.8-1.4 Activated Partial Thromboplast Time 25 24-35 SEC Sodium Level 133 L 135-145 MMOL/L Potassium Level 4.3 3.6-5.0 MMOL/L Chloride Level 92 L 98-107 MMOL/L Carbon Dioxide Level 21 21-32 MMOL/L Anion Gap 20 H 5-14 MMOL/L Blood Urea Nitrogen 15 7-18 MG/DL Creatinine 0.93 0.60-1.30 MG/DL Estimat Glomerular Filtration Rate > 60 BUN/Creatinine Ratio 16 Glucose Level 324 H 70-105 MG/DL Calcium Level 9.1 8.5-10.1 MG/DL Corrected Calcium 9.5 8.5-10.1 MG/DL Magnesium Level 1.9 1.8-2.4 MG/DL Total Bilirubin 0.6 0.1-1.0 MG/DL Aspartate Amino Transf (AST/SGOT) 18 5-34 U/L Alanine Aminotransferase (ALT/SGPT) 12 0-55 U/L Alkaline Phosphatase 42 40-136 U/L Troponin T 53 H <=15 NG/L Pro-B-Type Natriuretic Peptide 4542.0 H <75.0 PG/ML Total Protein 7.4 6.4-8.2 GM/DL Albumin 3.5 3.2-4.5 GM/DL My Orders Orders - MARIA M BEST MD Cbc With Automated Diff (12/20/18 18:48) Magnesium (12/20/18 18:48) Chest 1 View Ap/Pa Only (12/20/18 18:48) Ekg Tracing (12/20/18 18:48) Comprehensive Metabolic Panel (12/20/18 18:48) Protime With Inr (12/20/18 18:48) Partial Thromboplastin Time (12/20/18 18:48) O2 (12/20/18 18:48) Monitor-Rhythm Ecg Trace Only (12/20/18 18:48) Ed Iv/Invasive Line Start (12/20/18 18:48) Troponin T (12/20/18 18:48) Probnp Fs (12/20/18 18:48) Lidocaine 2% Viscous 15 Ml (Xylocaine Vi (12/20/18 19:00) Morphine Injection (Morphine Injection (12/20/18 18:49) Ns Iv 1000 Ml (Sodium Chloride 0.9%) (12/20/18 19:00) Manual Differential (12/20/18 18:40) Amiodarone For Bolus (Cordarone Bolus) (12/20/18 19:15) Amiodarone Injection (Cordarone Injectio (12/20/18 19:15) Metoprolol Tartrate Injection (Lopressor (12/20/18 19:45) Magnesium 1 Gm/100 Ml Ivpb (Magnesium Coello (12/20/18 19:45) Ekg Tracing (12/20/18 19:45) Medications Given in ED Current Medications Medications Dose Ordered Sig/Russel Route Start Time Stop Time Status Last Admin Dose Admin Amiodarone HCl 150 mg/Dextrose 103 ml @ 600 mls/hr ONCE ONCE IV 12/20/18 19:15 12/20/18 19:25 DC 12/20/18 19:20 600 MLS/HR Lidocaine HCl 15 ml ONCE ONCE PO 12/20/18 19:00 12/20/18 19:01 DC 12/20/18 19:00 15 ML Metoprolol Tartrate 2.5 mg ONCE ONCE IV 12/20/18 19:45 12/20/18 19:46 DC 12/20/18 19:55 2.5 MG Vital Signs/I&O 12/20/18 18:37 Temp 100.8 Pulse 149 Resp 14 B/P (MAP) 144/90 (108) Pulse Ox 100 Blood Pressure Mean: 108 Progress Progress Note #1: Time: 18:45 Progress Note Obtain labs and electrocardiogram. Will discuss with Dr. Jarquin, the mayonnaise mixer canteen operator about the patient's presentation tonight and get recommendations about management of his firing of defibrillator and episodes of nonsustained V tach showing on telemetry monitoring. We will try giving IV fluids for hydration considering that he has not been feeling well, on chemotherapy and radiation, and not taking his normal tube feedings. From review of prior Cardiology notes from Dr. Gregorio in 2014: Nonischemic cardiomyopathy, likely alcohol-related, based on a cardiac cath in [place], [place], Sep this year, according to the patient. Dr Meng's note of states that the cath showed minimal single-vessel coronary artery disease with a 40 % left circumflex artery narrowing but no other blockage his left main , LAD and RCA were all normal. His left ventricular ejection fraction was about 5-10 percent * Inducible VT per EP studies at [place], [place]. He Had an EP Study by at [facility] SepSeptember 13, 2014. Diagnosis was severe nonischemic cardio myopathy and syncope without prodrome. The patient was inducible for sustained ventricular tachycardia with programmed ventricular stimulation on isoproterenol. The patient was successfully defibrillated therefore the patient received a HOSPITAL ADMISSIONS CLERK-D (cardio resynchronization therapy- Defibrillator) which is an LV-RV pacer Lead biventricular defibrillator by [employer] [facility] placed there * NSVT * Noncompliance with meds * Acute on chronic systolic CHF, due to above-noted conditions. * Echo of Mar [address] Meng showed LVEF 15%, marked cardiomegaly, and PASP 55 mmHg * Pulm htn, likely due to chronic left heart failure * Chronic tobacco use * H/o alcohol abuse Progress Note #2: Time: 19:15 Progress Note Patient having improved heart rate and feeling a little bit better as fluids are going in. His blood pressure had dropped from his initial presentation so metoprolol was held. Dr. Jarquin has recommended getting interrogation of his [facility] [facility] device as well as starting some metoprolol 5 mg IV and amiodarone bolus and drip. Will try checking the electrolytes they have not all come back just yet. Unfortunately the [facility] indirect sales representative is out of since [facility]. Davis Cruz is the indirect sales representative mayonnaise mixer this weekend. I'm waiting on a call back from him to see when he can come to interrogate the device. Progress Note #3: Time: 19:30 Progress Note Davis Cruz from [facility] [facility] had called back and stated because he is coming from [place] he would take several hours to come down to be able to see the patient. If the patient is being admitted anyway he is suggested coming to see the patient in the morning. He would also check to see if he could do a remote check on the patient. If the canteen operator wanted him to come tonight he could and he would wait to hear back from us. He left his direct cell number and that was given to the nurses. Progress Note #4: Time: 19:40 Progress Note Discussed with Dr. Stern about the case and the patient. She accepted the patient to the ICU with the provision that Dr. Jarquin with Cardiology was counseled as well. [address] Jarquin and he suggested giving 2 gm of Magnesium since the mg level was 1.9. He stated that as long as the pt had no further firing of the defibrillator it could wait until morning but that he would still prefer it as soon as possible and if it happened to fire overnight the indirect sales representative would need to come to do an interrogation emergently overnight. Progress Note #5: Time: 21:30 Progress Note Patient remained stable during his stay in the emergency department. He continued to imporve on his heart rate with treatment in the ED. Transferred to [facility] in stable condition Initial ECG Impression Date: December 20, 2018 Initial ECG Impression Time: 18:41 Initial ECG Rate: 155 Initial ECG Rhythm: S.Tach Initial ECG Comparisson: Changed Comment Sinus tachycardia with a heart rate 155 bpm. Atrial premature complexes. His SD interval is 40 seconds. His QT interval 313 ms and QT corrected interval 403 ms. He has intraventricular conduction delay with possible atypical left bundle- branch block. No acute ST elevation. Compared to prior tracings in the system from 2015 this appears different with increased widening and more of a left bundle-branch block appearance than what he had previously. EKG : EKG Time: 20:07 Rate: 111 Rhythm: S.Tach ECG Comparisson: Changed Comment Sinus tachycardia with an improved greater than 111 bpm. SD interval 114 ms. QT interval of 377 ms a QT corrected interval of 513 ms. He still has intraventricular conduction delay with appearance of a left bundle-branch block. This appears improved from his tracing at 1841 tonight. Diagnostic Imaging Diagonstic Imaging: Xray Plain Films/CT/US/NM/MRI: chest Comments [facility]. [place], [place] NAME: MELISSA ASENCIO [facility] REC#: [id number] PT STATUS: REG ER : 1960 PHYSICIAN: MARIA M BEST MD ADMIT DATE: 12/20/18/ER FS Draft Date of Exam:12/20/18 CHEST 1 VIEW AP/PA ONLY INDICATION: Chest pain. EXAMINATION: Single view of the chest was obtained. COMPARISON: 04/21/2015. FINDINGS: Heart and mediastinal silhouette are normal in appearance. Pacemaker is unchanged. There is no acute edema, infiltrate or pleural fluid. Central vascular congestion is markedly improved compared to 04/21/2015. There is a right-sided Port-A-Cath with tip overlying the SVC. IMPRESSION: Pacemaker and Port-A-Cath, as above. No acute infiltrate, edema or pleural fluid. Significant improvement in the central vascular congestive changes compared with 04/21/2015. Dictated on workstation # [id number] Dict: 12/20/181944 Trans: 12/20/181953 [id number] Interpreted by: MYA MEI MD Electronically signed by: Reviewed: Reviewed by Me (and radiology report) Critical Care Note Critical Care Total Time (minutes) 60 minutes Progress 60 minutes of direct patient care time were spent in critical care of the patient. Time was excluding separately billable procedures. Time was spent in obtaining history from the patient and the patient's chart, spent at the patient 's bedside, reviewing the medical record in the computer, discussion with consultants, ordering labs and reviewing results, ordering interventions and reviewing response, and documentation of the chart Departure Communication (Admissions) Time/Spoke to Admitting Phy: 19:[address] Stern about the patient and my discussions with Dr. Jarquin Time/Spoke to Consulting Phy: 19:[address] Jarquin about the patient. Gotten recommendations earlier when the patient first presented and now updated him about how he was responding to the treatments as well as when the [facility] indirect sales representative could interrogate the device. Family Conversation Updated patient and spouse about admission and what was going on for the patient. As well as treatment we were doing here and what would be going on while he was in the ICU at [place]. Impression Primary Impression: Nonsustained ventricular tachycardia Additional Impression: Defibrillator discharge Disposition: ADMITTED INPATIENT Condition: Stable Admissions Decision to Admit Reason: Admit from ER (General) Decision to Admit/Date: December 20, 2018 Time/Decision to Admit Time: 19:40 Departure-Patient Inst. Referrals: [facility] (PCP/Family) Primary Care Physician MARIA M BEST MD December 20, 2018 19:00
[2018-12-20 19:13] LABS: PROTHROMBIN TIME PATIENT 14.2 SEC (12.2-14.7)
[2018-12-20 19:14] LABS: INR 1.1 (0.8-1.4)
[2018-12-20] MEDS ORDERED: AMIODARONE FOR BOLUS 150 MG in D5W 100 ML IVPB 100 ML IV ONE (19:15)
[2018-12-20 19:25] LABS: BAND NEUTROPHILS 24 %; EOSINOPHILS % (MANUAL) 2 %; LYMPHOCYTES % (MANUAL) 18 %; METAMYELOCYTES % 2 %; MONOCYTES % (MANUAL) 21 %; NEUTROPHILS % (MANUAL) 33 %
[2018-12-20 19:26] LABS: PLATELET ESTIMATE DECREASED
[2018-12-20 19:28] LABS: POTASSIUM 4.3 MMOL/L (3.6-5.0); SODIUM 133 MMOL/L (135-145)
[2018-12-20 19:29] LABS: ALANINE AMINOTRANSFERASE 12 U/L (0-55); ALKALINE PHOSPHATASE 42 U/L (40-136); BILIRUBIN,TOTAL 0.6 MG/DL (0.1-1.0); BUN/CREATININE RATIO 16; CALCIUM 9.1 MG/DL (8.5-10.1); CARBON DIOXIDE 21 MMOL/L (21-32); CHLORIDE 92 MMOL/L (98-107); CREATININE SERUM 0.93 MG/DL (0.60-1.30); GFR ESTIMATED > 60; GLUCOSE 324 MG/DL (70-105); MAGNESIUM 1.9 MG/DL (1.8-2.4); TOTAL PROTEIN 7.4 GM/DL (6.4-8.2)
[2018-12-20 19:30] LABS: ALBUMIN 3.5 GM/DL (3.2-4.5)
[2018-12-20] MEDS: AMIODARONE INJECTION 450 MG in D5W IV SOLUTION (EXCEL) 250 ML IV SCH (19:31)
--- NOTE | 2018-12-20 19:54 | Diagnostic Imaging Report ---
INDICATION: Chest pain. EXAMINATION: Single view of the chest was obtained. COMPARISON: 04/21/2015. FINDINGS: Heart and mediastinal silhouette are normal in appearance. Pacemaker is unchanged. There is no acute edema, infiltrate or pleural fluid. Central vascular congestion is markedly improved compared to 04/21/2015. There is a right-sided Port-A-Cath with tip overlying the SVC. IMPRESSION: Pacemaker and Port-A-Cath, as above. No acute infiltrate, edema or pleural fluid. Significant improvement in the central vascular congestive changes compared with 04/21/2015. Dictated by: Dictated on workstation # [id number]
[2018-12-20] MEDS: MAGNESIUM 1 GM/100 ML IVPB 100 ML IV SCH ×2 (20:07→21:02)
[2018-12-20 22:39] VITALS: BP 133/94
[2018-12-20] MEDS ORDERED: ONDANSETRON 4 MG/2 ML (SDV) Z0FRAN IV PRN (23:15)
[2018-12-21] VITALS (26 sets, daily range): BP systolic 3–123; BP diastolic 60–95
[2018-12-21] MEDS: morphine INJ 4 MG/ML 1 ML (VIAL/SYRINGE) IV PRN ×5 (00:28→19:33)
[2018-12-21] MEDS: NS IV 1000 ML 1,000 ML IV SCH ×2 (00:28→16:38)
[2018-12-21] MEDS ORDERED: AMIODARONE 450 MG/9 ML (CORDARONE) VIAL IV ONE (03:33)
[2018-12-21] MEDS ORDERED: D5W IV SOLUTION (EXCEL) 250 ML IV ONE (03:34)
[2018-12-21] MEDS: AMIODARONE INJECTION 450 MG in D5W IV SOLUTION (EXCEL) 250 ML IV SCH (03:42)
[2018-12-21 03:49] LABS: BASOPHILS % (AUTO) 0 % (0-10); EOSINOPHILS % (AUTO) 1 % (0-10); HEMATOCRIT 35 % (40-54); HEMOGLOBIN 11.7 G/DL (13.3-17.7); LYMPHOCYTES # (AUTO) 0.4 X 10^3 (1.0-4.0); LYMPHOCYTES % (AUTO) 16 % (12-44); MEAN CORPUSCULAR HEMOGLOBIN 33 PG (25-34); MEAN CORPUSCULAR HGB CONC 33 G/DL (32-36); MEAN CORPUSCULAR VOLUME 99 FL (80-99); MEAN PLATELET VOLUME 9.9 FL (7.4-10.4); MONOCYTES # (AUTO) 1.1 X 10^3 (0.0-1.0); MONOCYTES % (AUTO) 44 % (0-12); NEUTROPHILS % (AUTO) 39 % (42-75); PLATELET COUNT 107 10^3/uL (130-400); RED CELL DISTRIBUTION WIDTH 12.7 % (10.0-14.5); WHITE BLOOD COUNT 2.5 10^3/uL (4.3-11.0)
[2018-12-21 04:12] LABS: ALANINE AMINOTRANSFERASE 15 U/L (0-55); ALBUMIN 3.2 GM/DL (3.2-4.5); ALKALINE PHOSPHATASE 36 U/L (40-136); BILIRUBIN,TOTAL 0.3 MG/DL (0.1-1.0); BUN/CREATININE RATIO 16; CALCIUM 8.9 MG/DL (8.5-10.1); CARBON DIOXIDE 26 MMOL/L (21-32); CHLORIDE 98 MMOL/L (98-107); CREATININE SERUM 0.76 MG/DL (0.60-1.30); GFR ESTIMATED > 60; GLUCOSE 107 MG/DL (70-105); MAGNESIUM 2.3 MG/DL (1.8-2.4); PHOSPHORUS 3.6 MG/DL (2.3-4.7); POTASSIUM 3.9 MMOL/L (3.6-5.0); SODIUM 135 MMOL/L (135-145); TOTAL PROTEIN 6.5 GM/DL (6.4-8.2)
[2018-12-21 04:50] LABS: EOSINOPHILS % (MANUAL) 2 %; LYMPHOCYTES % (MANUAL) 11 %; MONOCYTES % (MANUAL) 39 %; NEUTROPHILS % (MANUAL) 48 %
--- NOTE | 2018-12-21 05:25 | Pulmonary Consultation ---
History of Present Illness History of Present Illness Date of Consultation 12/21/18 05:19 Time Seen by Provider: 05:20 Date of Admission History of Present Illness 58yo with recent dx of throat cancer undergoing chemo/radiation, nonischemic cardiomyopathy with defibrillator presented [facility] secondary to ICD firing 7-8 times. Pt complains of severe mouth pain and is coughing up copious amounts of white sputum. Pt is currently on a amio gtt. Cardiology is following. [employer] [facility] rep is going to interrogate ICD. He denies any fever. He has been having some chills. denies any nausea or vomiting. Pt quit smoking 1 wk ago. Allergies and Home Medications Allergies Coded Allergies: No Known Drug Allergies (Unverified , 10/30/18) Home Medications Carvedilol 12.5 Mg Tablet, 12.5 MG PO BID, (Reported) LAST FILLED #180 08-27-18 Doxylamine Succinate 25 Mg Tablet, 25 MG PO HS PRN for SLEEP, (Reported) Fentanyl 1 Each Patch.td72, 12 MCG TD Q72H, (Reported) Furosemide 40 Mg Tablet, 80 MG PO DAILY, (Reported) TAKES 2 (40MG) TABLETS Hydrocodone/Acetaminophen 1 Each Tablet, 1 TAB PO Q6H PRN for PAIN-MODERATE, ( Reported) Lisinopril 2.5 Mg Tablet, 2.5 MG PO DAILY, (Reported) LAST FILLED #90 08-27-18 Ondansetron HCl 4 Mg Tab, 4 MG PO Q4H PRN for NAUSEA/VOMITING-1ST LINE, ( Reported) Polyethylene Glycol 3350 17 Gm Powd.pack, 17 GM PO DAILY, (Reported) [Magic Mouthwash] , 10 ML PO AC, (Reported) SWISH AND SWALLOW; VISOUS LIDOCIANE, BENADRYL, NYSTATIN, DEXAMEHTASONE 1:1:1: 1 Past Hyxzhfn-Okypse-Mlzbay Hx Past Med/Social Hx: Reviewed Nursing Past Med/Soc Hx Patient Social History Alcohol Beverage of Choice: Beer Type Used: Cigarettes 2nd Hand Smoke Exposure: Yes Recent Foreign Travel: No Contact w/Someone Who Travel: No Recent Infectious Disease Expo: No Recent Hopitalizations: Yes (SEP 2018-PANCREATITIS) Immunizations Up To Date Tetanus Booster (TDap): More than 5yrs PED Vaccines UTD: No Date of Pneumonia Vaccine: Sep 11, 2014 Date of Influenza Vaccine: Apr 21, 2015 Seasonal Allergies Seasonal Allergies: No Past Medical History Surgeries: Yes Cardiac, Pacemaker Respiratory: No COPD, Emphysema Currently Using CPAP: No Currently Using BIPAP: No Cardiac: No (pacemaker placed sep 13 2014) Coronary Artery Disease, Hypertension, Peripheral Vascular Neurological: No Reproductive Disorders: No Sexually Transmitted Disease: No HIV/AIDS: No Genitourinary: Yes (pancreatitis) Gastrointestinal: No Hepatitis Musculoskeletal: No Endocrine: No HEENT: Yes Loss of Vision: Bilateral Hearing Impairment: Hard of Hearing Cancer: Yes (TONSIL) Did You Recieve Any Treatments: No What Type of Treatment Did You: Chemotherapy Psychosocial: No Integumentary: No Blood Disorders: No Adverse Reaction/Blood Tranf: No Family Medical History ARTERIAL STENTS 19 FATHER Abdominal aortic aneurysm 19 FATHER Alcoholism 19 FATHER Coronary thrombosis 19 FATHER Hypertension 19 FATHER LYMPH NODE CANCEROUS 19 MOTHER AAA, Heart Disease, Hypertension Review of Systems Time Seen by Provider: 05:53 Constitutional: Fever, Chills, Sweats, Weakness, Malaise, Other Eyes: No: Pain, Vision change, Conjunctivae inflammation, Eyelid inflammation, Other, Redness ENT: Nose pain, Nose discharge, Nose congestion, Throat pain, Throat swelling; No: Ear pain, Ear discharge, Mouth pain, Mouth swelling, Other Respiratory: Cough, Shortness of breath, SOB with excertion, Wheezing, Pleuritic Pain, Sputum; No: Hemoptysis Cardiovascular: Chest Pain, Palpitations, Orthopnea, Paroxysmal Noc. Dyspnea, Lt Headedness Gastrointestinal: Nausea, Constipation; No: Vomiting, Diarrhea Genitourinary: No Dysuria, No Frequency, No Incontinence, No Hematuria, No Retention, No Other Musculoskeletal: neck pain, shoulder pain, back pain; No: other, arm pain, hand pain, leg pain, foot pain Skin: Rash Neurological: Weakness, Change in speech; No: Confusion Sepsis Event Evaluation Height, Weight, BMI Height: 5'7.00" Weight: 126lbs. 0.0oz. 57.323600mx; 19.7 BMI Method:Actual Exam Exam Vital Signs Date Time Temp Pulse Resp B/P (MAP) Pulse Ox O2 Delivery O2 Flow Rate FiO2 12/21/18 04:00 82 12 109/70 (83) 98 Room Air 12/21/18 03:00 85 18 112/72 (85) 97 Room Air 12/21/18 02:00 92 14 94/60 (71) 95 Room Air 12/21/18 01:00 89 15 104/69 (81) 95 Room Air 12/21/18 01:00 91 12/21/18 00:45 96 15 110/75 (87) 98 Room Air 12/21/18 00:30 92 13 122/89 (100) 97 Room Air 12/21/18 00:15 96 15 116/77 (90) 97 Room Air 12/20/18 22:56 110 12/20/18 22:39 100.0 115 22 133/94 (107) 97 Room Air 12/20/18 21:42 107 12 111/71 (84) 97 Room Air 12/20/18 18:37 100.8 149 14 144/90 (108) 100 I & O 12/21/18 06:59 Intake Total 1430 ml Output Total 0 ml Balance 1430 ml Height & Weight Height: 5'7.00" Weight: 126lbs. 0.0oz. 57.219312bn; 19.7 BMI Method:Actual General Appearance: Chronically ill, Cachetic HEENT: PERRL/EOMI, Other (dry mucous membranes with erythema and swelling to his tongue. Areas of white plaque consistent with thrush in his mouth mucous membranes) Neck: Full Range of Motion, Supple, Other (erythema and radiation changes to his neck) Respiratory: No Accessory Muscle Use, No Respiratory Distress, Decreased Breath Sounds; No Rales, No Stridor, No Wheezing; Other (tenderness to palpation over the defibrillator) Cardiovascular: No Murmur, Normal Peripheral Pulses, Tachycardia Capillary Refill: Less Than 3 Seconds Extremity: Normal Capillary Refill, Normal Range of Motion, Non Tender, No Calf Tenderness Neurologic/Psychiatric: Alert, Oriented x3 Skin: Normal Color, Warm/Dry Results Lab Laboratory Tests 12/20/18 18:40 12/21/18 03:10 Assessment/Plan Assessment/Plan Nonsustained ventricular tachycardia with Defibrillator discharge -Cardiology -Amio gtt -Echo Hx of ischemic cardiomyopathy with EF of 15% throat cancer -undergoing chemo/radiation- with severe uncontrolled pain -Pt states he feels like he's being cremated from inside out -Consult oncology -Fentanyl patch - increase to 75mcg patch from 12mcg patch -Morphine IV Malnutrition -consult dietary -Start TF -Pt has PEG tube Anemia/thrombocytopenia -Monitor REA GOODWIN DO December 21, 2018 05:24
[2018-12-21] MEDS ORDERED: fentaNYL PATCH 75 MCG (DURAGESIC) TD SCH ×2 (05:30→09:00)
[2018-12-21] MEDS ORDERED: LACTATED RINGERS 1,000 ML IV NR (05:30)
[2018-12-21] MEDS ORDERED: PHARMACY TO DOSE IV SCH (05:30)
[2018-12-21] MEDS ORDERED: LIDOCAINE PF 2% 5 ML (XYLOCAINE) VIAL INJ PRN (06:15)
[2018-12-21] MEDS ORDERED: methylPREDNISolone 40 MG/ML (Solu-MEDROL) VIAL ONE (06:32)
[2018-12-21] MEDS ORDERED: PIPERACILLIN/TAZOBACTAM (BULK) 4.5 GM in NS (IVPB) 100 ML IV NR (07:14)
[2018-12-21] MEDS ORDERED: VANCOMYCIN 1250 MG/NS 250 ML IVPB IV NR ×2 (07:33)
[2018-12-21] MEDS: LIDOCAINE PF 2% 5 ML (XYLOCAINE) VIAL INJ SCH ×3 (07:51→19:51)
--- NOTE | 2018-12-21 08:22 | Diagnostic Imaging Report ---
Indication: Chest pain, arrhythmia. Comparison: 12/20/2018. Discussion: Single portable upright view of the chest was obtained. Stable normal heart size. Left-sided pacemaker is stable. No focal consolidation, pleural fluid, or pneumothorax. Right chest wall Infusaport is stable. No osseous abnormality. Impression: 1. No acute cardiopulmonary process. Dictated by: Dictated on workstation # [id number]
[2018-12-21 08:26] LABS: BILIRUBIN,URINE NEGATIVE (NEGATIVE); CLARITY,URINE CLEAR; COLOR,URINE YELLOW; GLUCOSE, URINE (UA) 2+ (NEGATIVE); KETONES,URINE NEGATIVE (NEGATIVE); LEUKOCYTE ESTERASE ,URINE NEGATIVE (NEGATIVE); NITRITE,URINE NEGATIVE (NEGATIVE); PH,URINE 6 (5-9); PROTEIN,URINE 1+ (NEGATIVE); UROBILINOGEN,URINE NORMAL (NORMAL)
[2018-12-21 08:34] LABS: BACTERIA,URINE NEGATIVE /HPF; RBC,URINE RARE /HPF; SQUAMOUS EPITHELIAL CELL,UR RARE /HPF
[2018-12-21] MEDS: methylPREDNISolone 40 MG/ML (Solu-MEDROL) VIAL IV SCH ×3 (08:39→18:16)
[2018-12-21] MEDS ORDERED: LIDOCAINE 2% VISCOUS 15 ML UDC PO SCH (09:00)
--- NOTE | 2018-12-21 09:47 | NUR ---
VANCOMYCIN DOSING SCR 0.76; CRCL ~ 84; BOLUS VANC 20 MG/KG X 57 KG ~ 1250 MG THEN VANC 15 MG/KG ~ 750 MG Q12H CHECK TROUGH LEVEL 12/22 AT 1900 HOLD DOSE AND CONTACT PHARMACY IF LEVEL IS GREATER THAN 20
--- NOTE | 2018-12-21 10:33 | Consultation-Cardiology ---
HPI-Cardiology Cardiology Consultation: Date of Consultation 12/21/18 Date of Admission Attending Physician Crystal Stern DO Admitting Physician [facility] Consulting Physician Shannon JARQUIN MD HPI: Time Seen by a Provider: 09:30 Chief Complaint: ICD shock This is a 58-year-old gentleman who previously followed with Dr. Gregorio. The patient has a biventricular ICD that was placed in [place] in 2014. He has history of significant cardiomyopathy and is noncompliant with medications. The patient has throat cancer and is undergoing chemotherapy. He has history of active smoking and according to the patient quit one month ago. According to the patient he's had 7-8 ICD shocks. The patient is having some chest pain as well. No other significant cardiac issues. Review of Systems-Cardiology Review of Systems Constitutional: As described under HPI; No As described under HPI, No no symptoms reported, No chills, No fever, No lightheadedness Eyes: No As described under HPI, No no symptoms reported, No blindness, No blurred vision, No contact lenses, No drainage, No decreased acuity, No foreign body sensation, No pain, No vision change Ears/Nose/Throat: No As described under HPI, No no symptoms reported, No chronic hearing loss, No ear discharge, No ear pain, No nasal drainage, No ulcerations Respiratory: No no symptoms reported; As described under HPI; No As described under HPI, No cough, No orthopnea; shortness of breath; No SOB with excertion Cardiovascular: No no symptoms reported; As described under HPI; No As described under HPI; chest pain; No edema, No irregular heart rate, No lightheadedness, No palpitations Gastrointestinal: No no symptoms reported, No As described under HPI, No abdomen distended, No abdominal pain, No blood streaked bowels, No constipation , No diarrhea, No nausea, No vomiting, No stool coloration changes Genitourinary: No As described under HPI, No burning, No dysuria, No discharge , No frequency, No flank pain, No hematuria, No urgency Skin: No rash, No skin related problems, No ulcerations Psychiatric/Neurological: No anxiety, No depression, No seizure, No focal weakness, No syncope Hematologic: No bleeding abnormalities EDO-Nwbreu-Pisekd Hx Patient Social History Type Used: Cigarettes 2nd Hand Smoke Exposure: Yes Recent Foreign Travel: No Recent Infectious Disease Expo: No Immunizations Up To Date Tetanus Booster (TDap): More than 5yrs Date of Pneumonia Vaccine: Sep 11, 2014 Date of Influenza Vaccine: Apr 21, 2015 Past Medical History PMH As described under Assessment. Family Medical History Family History: ARTERIAL STENTS 19 FATHER Abdominal aortic aneurysm 19 FATHER Alcoholism 19 FATHER Coronary thrombosis 19 FATHER Hypertension 19 FATHER LYMPH NODE CANCEROUS 19 MOTHER Allergies and Home Medications Allergies Coded Allergies: No Known Drug Allergies (Unverified , 10/30/18) Home Medications Carvedilol 12.5 Mg Tablet, 12.5 MG PO BID, (Reported) Furosemide 40 Mg Tablet, 40-80 MG PO DAILY LAST FILLED #180 18 Prescribed by: KANU CISNEROS on 09/19/18 0632 Hydrocodone Bit/Acetaminophen 1 Tab Tab, 1 TAB PO Q6H PRN for PAIN-MODERATE Prescribed by: FLOR RENEE on 11/10/18 1425 Lisinopril 2.5 Mg Tablet, 2.5 MG PO DAILY, (Reported) Ondansetron HCl 4 Mg Tablet, 4 MG PO Q4H PRN for maria del rosario Prescribed by: KANU CISNEROS on 09/19/18 0632 Potassium Chloride 10 Meq Tablet.er, 10 MEQ PO DAILY LAST FILLED #90 01-14-18 Prescribed by: KANU CISNEROS on 09/19/18 0632 Patient Home Medication List Home Medication List Reviewed: Yes Physical Exam-Cardiology Physical Exam Vital Signs/I&O 12/21/18 12/21/18 12/21/18 12/21/18 07:51 08:00 08:00 09:00 Pulse 78 86 Resp 11 12 B/P (MAP) 118/95 (103) 108/85 (93) Pulse Ox 96 92 95 99 O2 Delivery Room Air Room Air Room Air Room Air 12/21/18 12/21/18 12/21/18 12/21/18 10:00 11:00 11:40 12:00 Temp 98.3 Pulse 105 104 Resp 9 12 B/P (MAP) 120/72 (88) 123/79 (94) Pulse Ox 99 99 95 O2 Delivery Room Air Room Air Room Air 12/21/18 12/21/18 12/21/18 12/21/18 12:00 13:00 13:00 13:23 Temp 98.5 Pulse 84 91 81 Resp 11 11 B/P (MAP) 103/69 (80) 112/78 (89) Pulse Ox 97 97 O2 Delivery Room Air Room Air 12/21/18 12/21/18 12/21/18 12/21/18 14:00 14:18 15:00 15:40 Temp 97.5 Pulse 88 84 Resp 8 12 B/P (MAP) 112/72 (85) 3/72 (49) Pulse Ox 99 99 99 O2 Delivery Room Air Room Air Room Air 12/21/18 12/21/18 12/21/18 12/21/18 16:00 16:00 16:39 17:00 Temp 97.5 Pulse 80 89 Resp 13 17 B/P (MAP) 100/73 (82) 120/87 (98) Pulse Ox 98 95 94 O2 Delivery Room Air Room Air Room Air 12/21/18 12/21/18 17:09 18:00 Temp 97.5 Pulse 80 Resp 18 B/P (MAP) 111/79 (90) Pulse Ox 99 O2 Delivery Room Air 12/21/18 00:00 Intake Total 1430 ml Balance 1430 ml Capillary Refill : Less Than 3 Seconds Constitutional: appears stated age, AAO x 3; No apparent distress HEENT: PERRL; No normal ENT inspection, No TMs normal, No pharynx normal, No scleral icterus (R), No scleral icterus (L), No pale conjunctivae (R), No pale conjunctivae (L), No photophobia, No TM abnormal (R), No TM abnormal (L), No pharyngeal erythema, No tonsillar exudate, No other, No discharge, No EOMI; hearing is well preserved; No hard of hearing; oral hygience is good; No ulceration, No xanthelasmas are seen Neck: No non-tender, No full range of motion, No supple, No normal inspection, No carotid bruit, No limited range of motion, No lymphadenopathy (R), No lymphadenopathy (L), No tender lateral, No tender midline, No thyromegaly, No other; carotid pulses are 2 + bilaterally; No with good upstrokes Respiratory: No accessory muscle use, No respiratory distress, No chest tender , No chest expansion is symmetric; chest is bilaterally symmetric; No lungs clear to percussion; lungs clear to auscultation; No crackles, No rhonchi, No rales, No stridor, No wheezing, No pleural rub, No other Cardiovascular: regular rate-rhythm, S1 and S2 Gastrointestinal: No tender, No soft, No round, No distended, No pulsatile mass , No organomegaly, No guarding, No rebound, No tenderness, No hernia, No mass, No audible bowel sounds, No abnormal bowel sounds, No abdominal bruits, No spleenomegaly, No other Rectal: deferred Extremities: No normal range of motion, No non-tender, No normal inspection, No pedal edema, No calf tenderness, No normal capillary refill, No pelvis stable , No calf tenderness, No inflammation, No pedal edema, No slow capillary refill , No swelling, No other, No abrasion, No clubbing, No cyanosis, No ecchymosis, No laceration, No no lower extremity edema bilateral, No significant edema, No tenderness, No wound Neurologic/Psychiatric: no motor/sensory deficits, alert, normal mood/affect, oriented x 3, power is 5/5 both on sides Skin: No rash, No ulcerations Data Review Labs Laboratory Tests 12/21/18 03:10: White Blood Count 2.5L, Red Blood Count 3.56L, Hemoglobin 11.7L, Hematocrit 35L , Mean Corpuscular Volume 99, Mean Corpuscular Hemoglobin 33, Mean Corpuscular Hemoglobin Concent 33, Red Cell Distribution Width 12.7, Platelet Count 107L, Mean Platelet Volume 9.9, Neutrophils (%) (Auto) 39L, Lymphocytes (%) (Auto) 16 , Monocytes (%) (Auto) 44H, Eosinophils (%) (Auto) 1, Basophils (%) (Auto) 0, Neutrophils # (Auto) 1.0L, Lymphocytes # (Auto) 0.4L, Monocytes # (Auto) 1.1H, Eosinophils # (Auto) 0.0, Basophils # (Auto) 0.0, Neutrophils % (Manual) 48, Lymphocytes % (Manual) 11, Monocytes % (Manual) 39, Eosinophils % (Manual) 2, Sodium Level 135, Potassium Level 3.9, Chloride Level 98, Carbon Dioxide Level 26, Anion Gap 11, Blood Urea Nitrogen 12, Creatinine 0.76, Estimat Glomerular Filtration Rate > 60, BUN/Creatinine Ratio 16, Glucose Level 107H, Calcium Level 8.9, Corrected Calcium 9.5, Phosphorus Level 3.6, Magnesium Level 2.3, Total Bilirubin 0.3, Aspartate Amino Transf (AST/SGOT) 37H, Alanine Aminotransferase (ALT/SGPT) 15, Alkaline Phosphatase 36L, Total Protein 6.5, Albumin 3.2 12/21/18 06:38: Lactic Acid Level 1.04 12/21/18 07:30: Urine Color YELLOW, Urine Clarity CLEAR, Urine pH 6, Urine Specific Victoria 1.015L, Urine Protein 1+H, Urine Glucose (UA) 2+H, Urine Ketones NEGATIVE, Urine Nitrite NEGATIVE, Urine Bilirubin NEGATIVE, Urine Urobilinogen NORMAL, Urine Leukocyte Esterase NEGATIVE, Urine RBC (Auto) 1+H, Urine RBC RARE, Urine WBC NONE, Urine Squamous Epithelial Cells RARE, Urine Crystals NONE, Urine Bacteria NEGATIVE, Urine Casts NONE, Urine Mucus NEGATIVE, Urine Culture Indicated NO A/P-Cardiology Assessment/Admission Diagnosis ICD shock, Cardiomyopathy, Throat cancer, undergoing chemotherapy, Active smoking, Leukopenia, thrombocytopenia Plan ICD shock, this is a [employer] device which is a biventricular ICD done in [place] in [address]. [address] Gregorio has previously seen this patient and will take over care tomorrow. I will arrange device interrogation. The device rep will be coming from [facility] and will be here later in the afternoon. Amiodarone infusion, beta blockers. Blood pressure was borderline therefore we give Lopressor 2.5 mg IV yesterday. - The [facility] Came later in the afternoon and did the device interrogation. I have not seen the device interrogation myself but spoke to the floor representative over the phone. According to the [facility] wrap there was one ICD shock due to possible ventricular fibrillation. He was having number of episodes of SVT and atrial fibrillation. There were also numerous episodes of nonsustained ventricular tachycardia. Cardiomyopathy, patient is noncompliant. I will start beta carlos and gradually introduce NITA inhibitor as well. Positive troponin T, check serial troponin I. Could be secondary to ICD shock. Active smoking, quit recently. Was congratulated. Throat cancer, undergoing chemotherapy, will recommend oncology follow-up. Leukopenia, thrombocytopenia, likely due to chemotherapy. Dr. Gregorio to take over cardiology care tomorrow morning. Thank you for your consultation. Please call me if you have any questions. Edison Jarquin MD, FACP, FACC, FSCAI, FHRS, CCDS Interventional Cardiology Cardiac Electrophysiology Vascular Medicine and Endovascular Interventions Clinical Quality Measures DVT/VTE Risk/Contraindication: Risk Factor Score Per Nursin RFS Level Per Nursing on Admit: 1=Low/No VTE PPX Shannon JARQUIN MD December 21, 2018 10:33
--- NOTE | 2018-12-21 11:49 | History & Physical-Hospitalist ---
History of Present Illness HPI/Chief Complaint CC: Defib discharging with V-tach HPI: This is a 58yoWM clinic patient of [facility] and Dr Meza who presented to the [facility] ER with chest pain and defib discharging over and over. Patient was found to be in V-tach and elevated BNP due to defib discharging multiple times. Patient has h/o throat cancer undergoing radiation treatment by [facility] and receives meds and TF via PEG tube. Patient denies any pain but requesting Miralax for constipation. Dr Jarquin has been consulted and will be conferring with the defib interrogator. Source: patient Exam Limitations: no limitations Date Seen 12/21/18 Time Seen by a Provider: 10:30 Attending Physician Crystal Bradley DO [facility]/Count Includes [facility] Referring Physician Date of Admission December 20, 2018 at 20:45 Home Medications & Allergies Home Medications Reviewed patient Home Medication Reconciliation performed by pharmacy medication reconciliations biosolids management technician and/or nursing. Patients Allergies have been reviewed. Allergies Allergies Coded Allergies No Known Drug Allergies (Unverified10/30/18) Past Ccwklte-Gjzkpd-Axvrns Hx Past Med/Social Hx: Reviewed Nursing Past Med/Soc Hx, Reviewed and Corrections made Patient Social History Marrital Status: Employed/Student: unemployed Alcohol Use: Past History Alcohol Beverage of Choice: Beer Smoking Status: Former Smoker Type Used: Cigarettes 2nd Hand Smoke Exposure: Yes Recent Foreign Travel: No Contact w/other who traveled: No Recent Hopitalizations: Yes (SEP 2018-PANCREATITIS) Recent Infectious Disease Expo: No Immunizations Up To Date Tetanus Booster (TDap): More than 5yrs Pediatric: No Date of Pneumonia Vaccine: Sep 11, 2014 Date of Influenza Vaccine: Apr 21, 2015 Seasonal Allergies Seasonal Allergies: No Past Medical History Surgeries: Cardiac, Pacemaker Currently Using CPAP: No Currently Using BIPAP: No Cardiac: Coronary Artery Disease, Hypertension, Peripheral Vascular Reproductive: No Sexually Transmitted Disease: No HIV/AIDS: No Gastrointestinal: Hepatitis Loss of Vision: Bilateral Hearing Impairment: Hard of Hearing Cancer: Oral Did You Recieve Any Treatments: No What Type of Treatment Did You: Chemotherapy History of Blood Disorders: No Adverse Reaction to Blood Bledsoe: No Family History ARTERIAL STENTS 19 FATHER Abdominal aortic aneurysm 19 FATHER Alcoholism 19 FATHER Coronary thrombosis 19 FATHER Hypertension 19 FATHER LYMPH NODE CANCEROUS 19 MOTHER AAA, Heart Disease, Hypertension Review of Systems Constitutional: see HPI EENTM: no symptoms reported Respiratory: no symptoms reported Cardiovascular: chest pain, palpitations Gastrointestinal: no symptoms reported Genitourinary: no symptoms reported Musculoskeletal: no symptoms reported Psychiatric/Neurological: No Symptoms Reported All Other Systems Reviewed Negative Unless Noted: Yes Physical Exam Physical Exam Vital Signs Vital Signs - First Documented 12/20/18 12/20/18 18:37 21:42 Temp 100.8 Pulse 149 Resp 14 B/P (MAP) 144/90 (108) Pulse Ox 100 O2 Delivery Room Air Capillary Refill : Less Than 3 Seconds Height, Weight, BMI Height: 5'7.00" Weight: 126lbs. 0.0oz. 57.530174mg; 19.7 BMI Method:Actual General Appearance: No Apparent Distress, Anxious, Chronically ill, Cachetic HEENT: Other (radiation burn neck) Respiratory: Lungs Clear, Normal Breath Sounds Cardiovascular: Regular Rate, Rhythm, No Edema Neurologic/Psychiatric: Alert, Oriented x3, No Motor/Sensory Deficits, Normal Mood/Affect Results Results/Procedures Labs Laboratory Tests 12/20/18 18:40 12/21/18 03:10 Patient resulted labs reviewed. Assessment/Plan Admission Diagnosis Assessment: Chest pain Defib discharging multiple times V-tach on monitor Throat cancer undergoing radiation and chemo Former smoker PEG h/o alcoholism Plan: Monitor closely Miralax Pain control Admission Status: Inpatient Order (span 2 midnights) Reason for Inpatient Admission: Severe defib discharging with V tach Diagnosis/Problems Diagnosis/Problems (1) Chest pain Status: Resolved Qualifiers: Chest pain type: unspecified Qualified Codes: R07.9 - Chest pain, unspecified (2) Defibrillator discharge Status: Acute (3) Nonsustained ventricular tachycardia Status: Acute (4) Chronic systolic (congestive) heart failure Status: Chronic (5) Hepatitis C Status: Chronic Qualifiers: Viral hepatitis chronicity: chronic Hepatic coma status: without hepatic coma Qualified Codes: B18.2 - Chronic viral hepatitis C (6) Nonischemic cardiomyopathy Status: Chronic (7) Neck mass Status: Chronic (8) Tonsil cancer Status: Chronic Clinical Quality Measures DVT/VTE Risk/Contraindication: Risk Factor Score Per Nursin RFS Level Per Nursing on Admit: 1=Low/No VTE PPX CRYSTAL BRADLEY DO December 21, 2018 11:49
[2018-12-21] MEDS: PIPERACILLIN/TAZOBACTAM (BULK) 4.5 GM in NS (IVPB) 100 ML IV SCH ×2 (14:19→22:30)
[2018-12-21] MEDS: VANCOMYCIN 750 MG/NS 250 ML IVPB IV SCH ×2 (19:33)
[2018-12-21] MEDS ORDERED: meTOprolol TARTRATE 25 MG (LOPRESSOR) TABLET PO SCH (21:00)
[2018-12-22] VITALS (24 sets, daily range): BP systolic 78–143; BP diastolic 57–109
[2018-12-22] MEDS: methylPREDNISolone 40 MG/ML (Solu-MEDROL) VIAL IV SCH ×4 (00:29→18:08)
[2018-12-22] MEDS: morphine INJ 4 MG/ML 1 ML (VIAL/SYRINGE) IV PRN ×5 (00:30→22:23)
[2018-12-22 02:45] LABS: BASOPHILS % (AUTO) 0 % (0-10); EOSINOPHILS % (AUTO) 0 % (0-10); HEMATOCRIT 35 % (40-54); HEMOGLOBIN 11.7 G/DL (13.3-17.7); LYMPHOCYTES # (AUTO) 0.2 X 10^3 (1.0-4.0); LYMPHOCYTES % (AUTO) 8 % (12-44); MEAN CORPUSCULAR HEMOGLOBIN 32 PG (25-34); MEAN CORPUSCULAR HGB CONC 33 G/DL (32-36); MEAN CORPUSCULAR VOLUME 98 FL (80-99); MEAN PLATELET VOLUME 10.2 FL (7.4-10.4); MONOCYTES # (AUTO) 0.6 X 10^3 (0.0-1.0); MONOCYTES % (AUTO) 25 % (0-12); NEUTROPHILS # (AUTO) 1.5 X 10^3 (1.8-7.8); NEUTROPHILS % (AUTO) 67 % (42-75); PLATELET COUNT 126 10^3/uL (130-400); RED CELL DISTRIBUTION WIDTH 12.9 % (10.0-14.5); WHITE BLOOD COUNT 2.2 10^3/uL (4.3-11.0)
[2018-12-22 02:58] LABS: BUN/CREATININE RATIO 16; CALCIUM 9.5 MG/DL (8.5-10.1); CARBON DIOXIDE 23 MMOL/L (21-32); CHLORIDE 102 MMOL/L (98-107); CREATININE SERUM 0.68 MG/DL (0.60-1.30); GFR ESTIMATED > 60; GLUCOSE 180 MG/DL (70-105); MAGNESIUM 2.1 MG/DL (1.8-2.4); POTASSIUM 3.9 MMOL/L (3.6-5.0); SODIUM 138 MMOL/L (135-145)
[2018-12-22] MEDS: PIPERACILLIN/TAZOBACTAM (BULK) 4.5 GM in NS (IVPB) 100 ML IV SCH ×3 (05:51→22:22)
--- NOTE | 2018-12-22 05:58 | Pulmonary Progress Note ---
Subjective Time Seen by a Provider: 05:52 Subjective/Events-last exam Still complains of mouth pain. Sepsis Event Evaluation Height, Weight, BMI Height: 5'7.00" Weight: 126lbs. 0.0oz. 57.172517kc; 19.7 BMI Method:Actual Focused Exam Lactate Level 12/21/18 06:38: Lactic Acid Level 1.04 Exam Exam Vital Signs Date Time Temp Pulse Resp B/P (MAP) Pulse Ox O2 Delivery O2 Flow Rate FiO2 12/22/18 05:00 69 9 91/66 (74) 95 Room Air 12/22/18 04:00 79 12 131/80 (97) 98 Room Air 12/22/18 03:45 98 Room Air 12/22/18 03:45 97.5 12/22/18 03:00 77 8 122/85 (97) 97 Room Air 12/22/18 02:00 70 8 106/67 (80) 100 Room Air 12/22/18 01:00 74 11 112/75 (87) 99 Room Air 12/22/18 01:00 78 12/22/18 00:30 97.4 Room Air 12/22/18 00:00 99 Room Air 12/22/18 00:00 72 9 99/71 (80) 96 Room Air 12/21/18 23:00 73 16 108/70 (83) 98 Room Air 12/21/18 22:00 79 19 120/86 (97) 95 Room Air 12/21/18 21:00 76 24 121/80 (94) 100 Room Air 12/21/18 20:00 90 18 121/86 (98) 99 Room Air 12/21/18 20:00 100 Room Air 12/21/18 19:51 100 Room Air 12/21/18 19:02 79 12/21/18 19:00 98.2 85 16 114/81 (92) 100 Room Air 12/21/18 18:00 80 18 111/79 (90) 99 Room Air 12/21/18 17:09 97.5 12/21/18 17:00 89 17 120/87 (98) 94 Room Air 12/21/18 16:39 97.5 12/21/18 16:00 95 Room Air 12/21/18 16:00 80 13 100/73 (82) 98 Room Air 12/21/18 15:40 97.5 12/21/18 15:00 84 12 3/72 (49) 99 Room Air 12/21/18 14:18 99 Room Air 12/21/18 14:00 88 8 112/72 (85) 99 Room Air 12/21/18 13:23 98.5 12/21/18 13:00 81 11 112/78 (89) 97 Room Air 12/21/18 13:00 91 12/21/18 12:00 84 11 103/69 (80) 97 Room Air 12/21/18 12:00 95 Room Air 12/21/18 11:40 98.3 12/21/18 11:00 104 12 123/79 (94) 99 Room Air 12/21/18 10:00 105 9 120/72 (88) 99 Room Air 12/21/18 09:00 86 12 108/85 (93) 99 Room Air 12/21/18 08:00 95 Room Air 12/21/18 08:00 78 11 118/95 (103) 92 Room Air 12/21/18 07:51 96 Room Air 12/21/18 07:00 96 12/21/18 07:00 79 10 110/72 (85) 99 Room Air 12/21/18 06:00 84 15 112/71 (85) 96 Room Air I & O 12/22/18 07:00 Intake Total 1839 ml Output Total 3650 ml Balance -1811 ml Height & Weight Height: 5'7.00" Weight: 126lbs. 0.0oz. 57.321093dm; 19.7 BMI Method:Actual General Appearance: No Apparent Distress, Anxious, Chronically ill, Cachetic HEENT: Other (radiation burn neck) Neck: Full Range of Motion, Supple, Other (erythema and radiation changes to his neck) Respiratory: Lungs Clear, Normal Breath Sounds Cardiovascular: Regular Rate, Rhythm, No Edema Capillary Refill: Less Than 3 Seconds Extremity: Normal Capillary Refill, Normal Range of Motion, Non Tender, No Calf Tenderness Neurologic/Psychiatric: Alert, Oriented x3, No Motor/Sensory Deficits, Normal Mood/Affect Skin: Normal Color, Warm/Dry Results Lab Laboratory Tests 12/20/18 18:40 12/21/18 03:10 12/22/18 02:20 Assessment/Plan Assessment/Plan Nonsustained ventricular tachycardia with Defibrillator discharge -Cardiology -Amio gtt -Echo Fever-- with intragenic immunocompromise -Juarez cultures pending -Zosyn, and vanco Hx of ischemic cardiomyopathy with EF of 15% throat cancer -undergoing chemo/radiation- with severe uncontrolled pain -Pt states he feels like he's being cremated from inside out -Consult oncology -Fentanyl patch - increase to 75mcg patch from 12mcg patch -Morphine IV Pancytopenia Malnutrition -consult dietary - TF -Pt has PEG tube Anemia/thrombocytopenia -Monitor REA GOODWIN DO December 22, 2018 05:58
--- NOTE | 2018-12-22 08:51 | Progress Note-Cardiology ---
Cardiology SOAP Progress Note Subjective: Gen malaise and weakness No cp or syncope Chronic shortness of breath Chronic cough productive of yellowish sputum Objective: I&O/Vital Signs 12/21/18 12/21/18 12/21/18 12/22/18 21:00 22:00 23:00 00:00 Pulse 76 79 73 72 Resp 24 19 16 9 B/P (MAP) 121/80 (94) 120/86 (97) 108/70 (83) 99/71 (80) Pulse Ox 100 95 98 96 O2 Delivery Room Air Room Air Room Air Room Air 12/22/18 12/22/18 12/22/18 12/22/18 00:00 00:30 01:00 01:00 Temp 97.4 Pulse 78 74 Resp 11 B/P (MAP) 112/75 (87) Pulse Ox 99 99 O2 Delivery Room Air Room Air Room Air 12/22/18 12/22/18 12/22/18 12/22/18 02:00 03:00 03:45 03:45 Temp 97.5 Pulse 70 77 Resp 8 8 B/P (MAP) 106/67 (80) 122/85 (97) Pulse Ox 100 97 98 O2 Delivery Room Air Room Air Room Air 12/22/18 12/22/18 12/22/18 12/22/18 04:00 05:00 06:00 07:00 Pulse 79 69 85 75 Resp 12 9 13 B/P (MAP) 131/80 (97) 91/66 (74) 122/84 (97) Pulse Ox 98 95 99 O2 Delivery Room Air Room Air Room Air 12/22/18 12/22/18 12/22/18 07:00 08:00 08:00 Pulse 77 67 Resp 11 12 B/P (MAP) 128/92 (104) 122/90 (101) Pulse Ox 100 98 98 O2 Delivery Room Air Room Air Room Air 12/22/18 00:00 Intake Total 1719 ml Output Total 2350 ml Balance -631 ml Weight (Pounds): 121 Weight (Ounces): 2.0 Weight (Calculated Kilograms): 54.758265 Constitutional: appears stated age, AAO x 3, PERRL, other (Hard of hearing) Respiratory: No accessory muscle use; chest is bilaterally symmetric, other ( fair air entry, diminished at the bases; prolonged exp phase; exp wheezes) Cardiovascular: regular rate-rhythm, S1 and S2 Gastrointestional: No tender; soft; No guarding, No rebound; audible bowel sounds, other (gastrostomy tube in place L lat to the umbilicus) Extremities: No clubbing, No cyanosis, No significant edema Neurologic/Psychiatric: alert, normal mood/affect, oriented x 3, other (moves all limbs equaly) Skin: No rash, No ulcerations Results/Procedures: Labs Laboratory Tests 12/22/18 02:20: White Blood Count 2.2L, Red Blood Count 3.61L, Hemoglobin 11.7L, Hematocrit 35L , Mean Corpuscular Volume 98, Mean Corpuscular Hemoglobin 32, Mean Corpuscular Hemoglobin Concent 33, Red Cell Distribution Width 12.9, Platelet Count 126L, Mean Platelet Volume 10.2, Neutrophils (%) (Auto) 67, Lymphocytes (%) (Auto) 8L , Monocytes (%) (Auto) 25H, Eosinophils (%) (Auto) 0, Basophils (%) (Auto) 0, Neutrophils # (Auto) 1.5L, Lymphocytes # (Auto) 0.2L, Monocytes # (Auto) 0.6, Eosinophils # (Auto) 0.0, Basophils # (Auto) 0.0, Sodium Level 138, Potassium Level 3.9, Chloride Level 102, Carbon Dioxide Level 23, Anion Gap 13, Blood Urea Nitrogen 11, Creatinine 0.68, Estimat Glomerular Filtration Rate > 60, BUN/ Creatinine Ratio 16, Glucose Level 180H, Calcium Level 9.5, Phosphorus Level 3.0 , Magnesium Level 2.1 Laboratory Tests 12/20/18 18:40 12/21/18 03:10 12/22/18 02:20 A/P: Assessment: Arrrhythmia, PSVT and PAF, leading to inappropriate ICD discharges Noncompliance with meds Nonischemic cardiomyopathy, likely alcohol-related. Last cardiac cath was on by Tyron Conklin DO, at [facility]. It is reported to have shown right dominant cor circulation, 40% stenosis of mid LCX, and minor luminal irreg elsewhere. LVEF was reported to be 60% on that cath of 09/10/14. However, echo of Mar [address] Meng is reported to have shown severely dilated LV, EF 15%, mod to mod severe MR, mod TR, PASP 55 mmHg NSVT and inducible VT (programmed vent stim on isoproterenol) per EP studies at [place], [place]. He had an EP Study on 09/13/14 by at [facility]. Diagnosis was severe nonischemic cardiomyopathy and syncope without prodrome and he received a [facility]-D ([facility]) Acute on chronic systolic CHF, due to above-noted conditions Type 2 UT due to ac on sys CHF Echo 12/21/18 (Dr Jarquin): LVEF 20-25%, grade 1 chacon dysfunction, basal-mid antlat akinesis, mod to severe MR, PASP 35-40 mmHg Chronic tobacco and alcohol abuse Tonsillar SCC, treated with chemo and radiation S/p PEG Probable COPD Plan: * Treat with BB and NITA-inhib for cm and CHF * Treat with long-acting for vent rate control during PSVT/PAF * Treat with apixaban for stroke prophylaxis * Advised to refrain from tobacco and alcohol use * Monitor labs VANITA BERGMAN MD FACP FACC CCDS December 22, 2018 08:51
[2018-12-22] MEDS: VANCOMYCIN 750 MG/NS 250 ML IVPB IV SCH ×4 (08:55→21:12)
[2018-12-22] MEDS: NS IV 1000 ML 1,000 ML IV SCH (08:55)
[2018-12-22] MEDS ORDERED: FENT1PAT6 TD (09:20)
[2018-12-22] MEDS ORDERED: ONDN4T PO (09:20)
[2018-12-22] MEDS ORDERED: FURO40TA4 PO (09:20)
[2018-12-22] MEDS ORDERED: HYDR-3812 PO (09:20)
[2018-12-22] MEDS ORDERED: MAGIC MOUTHWASH PO (09:20)
[2018-12-22] MEDS ORDERED: POLY17PO6 PO (09:22)
[2018-12-22] MEDS ORDERED: DOXY25TA50 PO (09:24)
--- NOTE | 2018-12-22 09:25 | NUR ---
CALLED TOMY IN [place] AND [facility] FOR RECENTLY FILLED MEDICATIONS THEN WENT OVER THOSE LISTS WITH THE PATIENT. TOMY HEBERT TOBY FILLED: 10-02-18 LASIX 40MG 2 DAILY #180 (STATES HE HAS NOT BEEN TAKING SINCE HE STARTED CHEMO BECAUSE HE IS CONSTIPATED) 08-27-18 LISINOPRIL 2.5MG DAILY #90 08-27-18 COREG 12.5MG BID #180 (ADMITS HE MISSES HIS EVENING DOSE SOMETIMES) 09-19-18 POTASSIUM 10MEQ DAILY (NEVER PICKED UP, STATES HE DOES NOT TAKE DUE TO COST) 10-02-18 ZOFRAN 4MG Q4H PRN (HAS NOT HAD TO USE MUCH BUT HAS ON HAND IF NEEDED) [facility] FILLED: 12-19-18 FENTANYL 12MCG Q72H 12-17-18 HYDROCODONE 5-325MG 1 Q6H PRN 12-17-18 MAGIC MOUTHWASH 1:1:1:1 VISCOUS LIDOCAINE, BENADRYL, NYSTATIN, DEXAMETHASONE. (HE STATES HE HAS NOT BEEN USING IT, ONLY USED IT 3 TIMES AND HE FEELS IT HURT HIS MOUTH MORE) HE ALSO USES MIRALAX DAILY OTC AND AN OTC SLEEP AID PRN
[2018-12-22] MEDS ORDERED: lisINopril 10 MG (PRINIVIL) TABLET PO NR (09:30)
[2018-12-22] MEDS ORDERED: CARVEDILOL 12.5 MG (COREG) TABLET PO NR (09:30)
[2018-12-22] MEDS ORDERED: DILTIAZEM 240 MG (CARDIZEM CD) CAP PO NR (09:30)
[2018-12-22] MEDS ORDERED: APIXABAN 2.5 MG (ELIQUIS) TABLET PO NR (09:30)
--- NOTE | 2018-12-22 09:33 | Diagnostic Imaging Report ---
Indication: Nonsustained ventricular tachycardia. Comparison: 12/21/2018. Findings: Stable position of left pectoral dual-chamber biventricular pacemaker/ICD. Leads are intact. Patchy right basilar pulmonary opacities are similar and likely due to atelectasis. Remainder of the visualized lungs are clear. Stable right IJ Port-A-Cath. No pleural effusion or pneumothorax. Impression: 1. Stable appearance of left pectoral transvenous pacemaker/ICD. No fracture of the leads. 2. Patchy right basilar pulmonary opacities are similar and likely on the basis of atelectasis. Dictated by: Dictated on workstation # [id number]
[2018-12-22] MEDS: LIDOCAINE PF 2% 5 ML (XYLOCAINE) VIAL INJ SCH ×2 (09:44→14:37)
--- NOTE | 2018-12-22 17:32 | Cardiology Progress Note ---
Cardiology SOAP Progress Note Subjective: No cardiac compliants. Objective: I&O/Vital Signs 12/22/18 12/22/18 12/22/18 12/22/18 08:00 08:00 09:00 09:44 Pulse 67 90 Resp 12 25 B/P (MAP) 122/90 (101) 143/98 (113) Pulse Ox 98 98 96 100 O2 Delivery Room Air Room Air Room Air Room Air 12/22/18 12/22/18 12/22/18 12/22/18 10:00 11:00 12:00 12:00 Pulse 82 82 83 Resp 7 27 19 B/P (MAP) 128/102 (111) 127/109 (115) 127/81 (96) Pulse Ox 95 100 98 98 O2 Delivery Room Air Room Air Room Air Room Air 12/22/18 12/22/18 12/22/18 12/22/18 12:48 13:00 14:00 15:00 Pulse 80 93 76 80 Resp 16 24 26 B/P (MAP) 133/92 (106) 106/80 (89) 124/80 (95) Pulse Ox 96 100 100 O2 Delivery Room Air Room Air Room Air 12/22/18 12/22/18 12/22/18 12/22/18 16:00 16:00 17:00 18:00 Pulse 110 68 71 Resp 13 22 13 B/P (MAP) 78/65 (69) 87/64 (72) 94/57 (69) Pulse Ox 98 99 100 100 O2 Delivery Room Air Room Air Room Air Room Air 12/22/18 00:00 Intake Total 1719 ml Output Total 2350 ml Balance -631 ml Weight (Pounds): 121 Weight (Ounces): 2.0 Weight (Calculated Kilograms): 54.228040 Constitutional: appears stated age, AAO x 3, PERRL, other (Hard of hearing) Respiratory: No accessory muscle use; chest is bilaterally symmetric, other ( fair air entry, diminished at the bases; prolonged exp phase; exp wheezes) Cardiovascular: regular rate-rhythm, S1 and S2 Gastrointestional: No tender; soft; No guarding, No rebound; audible bowel sounds, other (gastrostomy tube in place L lat to the umbilicus) Extremities: No clubbing, No cyanosis, No significant edema Neurologic/Psychiatric: alert, normal mood/affect, oriented x 3, other (moves all limbs equaly) Skin: No rash, No ulcerations Results/Procedures: Labs Laboratory Tests 12/22/18 02:20: White Blood Count 2.2L, Red Blood Count 3.61L, Hemoglobin 11.7L, Hematocrit 35L , Mean Corpuscular Volume 98, Mean Corpuscular Hemoglobin 32, Mean Corpuscular Hemoglobin Concent 33, Red Cell Distribution Width 12.9, Platelet Count 126L, Mean Platelet Volume 10.2, Neutrophils (%) (Auto) 67, Lymphocytes (%) (Auto) 8L , Monocytes (%) (Auto) 25H, Eosinophils (%) (Auto) 0, Basophils (%) (Auto) 0, Neutrophils # (Auto) 1.5L, Lymphocytes # (Auto) 0.2L, Monocytes # (Auto) 0.6, Eosinophils # (Auto) 0.0, Basophils # (Auto) 0.0, Sodium Level 138, Potassium Level 3.9, Chloride Level 102, Carbon Dioxide Level 23, Anion Gap 13, Blood Urea Nitrogen 11, Creatinine 0.68, Estimat Glomerular Filtration Rate > 60, BUN/ Creatinine Ratio 16, Glucose Level 180H, Calcium Level 9.5, Phosphorus Level 3.0 , Magnesium Level 2.1 Microbiology 12/21/18 Blood Culture - Preliminary, Resulted No growth 12/21/18 Gram Stain - Final, Resulted 12/21/18 Sputum Culture - Preliminary, Resulted Usual upper respiratory rayne A/P: Assessment/Dx: ICD shock, Atrial flutter/Altrial Tachycardia, PAF, NSVT, Non ischemic Cardiomyopathy, Throat cancer, undergoing chemotherapy, Active smoking, Leukopenia, thrombocytopenia Plan: Dr Gregorio requested me to follow up for Cardiac Electrophysiology. ICD shock, this is a [employer] device which is a biventricular ICD done in [place] in 2015. I have reviewed all strips available from device interrogation from 12/21/2018 and 12/22/2018 which shows normal device capture and sensing. Battery longevity 1.3 years. NICMP: [employer] non-responder. The telemetry stips shows Atrial tachycardia/Atrial flutter at CL ~ 400 ms with heart rate 155 bpm, with one to one conduction to the ventricle. Numerous episodes. Degeneration to Atrial fibrillation is noted, with rapid conduction to the ventricle which was read by the device as VF and 40J shock given x 1. Inappropriate shock. Few episodes of likely NSVT also noted. Device recommendations: - Change VT 1 monitor zone to 167 bpm. - Change VT 2 therapy zone to 188 bpm. with ATP followed by shock. - Change VF zone with ATP during charging and then shock at 214 bpm. - Battery longevity 1.3 years - arrange close follow up and device change in the near future. - Biventricular pacing 92%, likely due to SVT/AT/AF Arrhythmia Recommendations: - Amiodarone or other AAD therapy (other option is dofetilide - due to severe LV systolic dysfunction). - Maximum tolerated beta carlos. - Consider EP study and possible Atrial Tachycardia/Atrial Flutter ablation. - Oral anticoagulation for PAF. All device and Arrhythmia recommendations should be considered in light of prognosis from throat cancer. Thank you for your consultation. Please call me if you have any questions. Edison Jarquin MD, FACP, FACC, FSCAI, FHRS, CCDS Interventional Cardiology Cardiac Electrophysiology Vascular Medicine and Endovascular Interventions Shannon JARQUIN MD December 22, 2018 17:32
--- NOTE | 2018-12-22 18:18 | Progress Note (SOAP) ---
Subjective Subjective/Events-last exam Patient doing well this AM. States that he has not any episodes since coming into the hospital. Denies any chest pain or shortness of breath. States that his chest wall is tender. Review of Systems Date Seen by Provider: December 22, 2018 Time Seen by Provider: 10:35 General: Fatigue, Malaise Pulmonary: No Dyspnea, No Cough Cardiovascular: No: Chest Pain, Palpitations Neurological: Weakness Focused Exam Lactate Level 12/21/18 06:38: Lactic Acid Level 1.04 Objective Exam Last Set of Vital Signs Vital Signs Date Time Temp Pulse Resp B/P (MAP) Pulse Ox O2 Delivery O2 Flow Rate FiO2 12/22/18 18:00 71 13 94/57 (69) 100 Room Air 12/22/18 03:45 97.5 Capillary Refill : Less Than 3 Seconds I&O Intake and Output 12/22/18 00:00 Intake Total 1969 ml Output Total 2750 ml Balance -781 ml Intake Oral 0 ml IV Total 709 ml Tube Feeding 960 ml Other 300 ml Output Urine Total 2750 ml General: Alert, Oriented X3, Cooperative, No Acute Distress HEENT: Other (radiation changes on neck) Lungs: Clear to Auscultation, Normal Air Movement Heart: Regular Rate, No Murmurs, Other (ICD on Left ) Abdomen: Normal Bowel Sounds, Soft, No Tenderness, No Masses Extremities: No Edema, No Tenderness/Swelling Neuro: Sensation Intact, Cranial Nerves 3-12 NL Results/Procedures Lab Laboratory Tests 12/22/18 02:20: White Blood Count 2.2L, Red Blood Count 3.61L, Hemoglobin 11.7L, Hematocrit 35L , Mean Corpuscular Volume 98, Mean Corpuscular Hemoglobin 32, Mean Corpuscular Hemoglobin Concent 33, Red Cell Distribution Width 12.9, Platelet Count 126L, Mean Platelet Volume 10.2, Neutrophils (%) (Auto) 67, Lymphocytes (%) (Auto) 8L , Monocytes (%) (Auto) 25H, Eosinophils (%) (Auto) 0, Basophils (%) (Auto) 0, Neutrophils # (Auto) 1.5L, Lymphocytes # (Auto) 0.2L, Monocytes # (Auto) 0.6, Eosinophils # (Auto) 0.0, Basophils # (Auto) 0.0, Sodium Level 138, Potassium Level 3.9, Chloride Level 102, Carbon Dioxide Level 23, Anion Gap 13, Blood Urea Nitrogen 11, Creatinine 0.68, Estimat Glomerular Filtration Rate > 60, BUN/ Creatinine Ratio 16, Glucose Level 180H, Calcium Level 9.5, Phosphorus Level 3.0 , Magnesium Level 2.1 Microbiology 12/21/18 Blood Culture - Preliminary, Resulted No growth 12/21/18 Gram Stain - Final, Resulted 12/21/18 Sputum Culture - Preliminary, Resulted Usual upper respiratory rayne Assessment/Plan Assessment/Plan (1) Defibrillator discharge Status: Acute Assessment & Plan: - Cardiology consulted and managing, settings have been adjusted (2) Acute on chronic diastolic CHF (congestive heart failure) Status: Acute Assessment & Plan: - Elevated BNP likely 2/2 to discharges (3) Throat cancer Status: Acute Assessment & Plan: - Leukopenia 2/2 chemo/Rad (4) Nonischemic cardiomyopathy Status: Chronic (5) Tobacco abuse Status: Chronic Assessment & Plan: - Discussed the importance of cessation Clinical Quality Measures DVT/VTE Risk/Contraindication: Risk Factor Score Per Nursin RFS Level Per Nursing on Admit: 1=Low/No VTE PPX MISA NELSON MD December 22, 2018 18:18
[2018-12-22] MEDS ORDERED: TROUGH ORDER-PHARMACY XX NR (19:00)
[2018-12-22] MEDS: APIXABAN 2.5 MG (ELIQUIS) TABLET PO SCH (20:15)
[2018-12-22] MEDS: CARVEDILOL 12.5 MG (COREG) TABLET PO SCH (20:15)
[2018-12-23] VITALS (9 sets, daily range): BP systolic 87–116; BP diastolic 52–86
[2018-12-23] MEDS: methylPREDNISolone 40 MG/ML (Solu-MEDROL) VIAL IV SCH ×2 (00:20→05:14)
[2018-12-23] MEDS: morphine INJ 4 MG/ML 1 ML (VIAL/SYRINGE) IV PRN ×2 (03:20→09:26)
[2018-12-23] MEDS: NS IV 1000 ML 1,000 ML IV SCH (03:20)
[2018-12-23 03:26] LABS: BASOPHILS % (AUTO) 0 % (0-10); EOSINOPHILS % (AUTO) 0 % (0-10); HEMATOCRIT 32 % (40-54); HEMOGLOBIN 10.7 G/DL (13.3-17.7); LYMPHOCYTES # (AUTO) 0.1 X 10^3 (1.0-4.0); LYMPHOCYTES % (AUTO) 6 % (12-44); MEAN CORPUSCULAR HEMOGLOBIN 33 PG (25-34); MEAN CORPUSCULAR HGB CONC 34 G/DL (32-36); MEAN CORPUSCULAR VOLUME 98 FL (80-99); MEAN PLATELET VOLUME 10.4 FL (7.4-10.4); MONOCYTES # (AUTO) 0.5 X 10^3 (0.0-1.0); MONOCYTES % (AUTO) 22 % (0-12); NEUTROPHILS # (AUTO) 1.7 X 10^3 (1.8-7.8); NEUTROPHILS % (AUTO) 72 % (42-75); PLATELET COUNT 112 10^3/uL (130-400); RED CELL DISTRIBUTION WIDTH 12.6 % (10.0-14.5); WHITE BLOOD COUNT 2.3 10^3/uL (4.3-11.0)
[2018-12-23 03:43] LABS: BUN/CREATININE RATIO 23; CALCIUM 9.1 MG/DL (8.5-10.1); CARBON DIOXIDE 23 MMOL/L (21-32); CHLORIDE 104 MMOL/L (98-107); CREATININE SERUM 0.62 MG/DL (0.60-1.30); GFR ESTIMATED > 60; GLUCOSE 131 MG/DL (70-105); PHOSPHORUS 2.9 MG/DL (2.3-4.7); SODIUM 138 MMOL/L (135-145)
[2018-12-23] MEDS: PIPERACILLIN/TAZOBACTAM (BULK) 4.5 GM in NS (IVPB) 100 ML IV SCH (05:14)
--- NOTE | 2018-12-23 05:26 | Pulmonary Progress Note ---
Subjective Time Seen by a Provider: 05:36 Subjective/Events-last exam Pt wants to go home. He is doing better. Sepsis Event Evaluation Height, Weight, BMI Height: 5'7.00" Weight: 129lbs. 0.0oz. 58.711931yb; 19.7 BMI Method:Actual Focused Exam Lactate Level 12/21/18 06:38: Lactic Acid Level 1.04 Exam Exam Vital Signs Date Time Temp Pulse Resp B/P (MAP) Pulse Ox O2 Delivery O2 Flow Rate FiO2 12/23/18 05:00 63 11 109/63 (78) Room Air 12/23/18 04:00 63 9 116/86 (96) Room Air 12/23/18 04:00 97.5 12/23/18 04:00 Room Air 12/23/18 03:00 65 11 106/65 (79) Room Air 12/23/18 02:00 59 9 99/65 (76) Room Air 12/23/18 01:00 73 12/23/18 01:00 73 30 87/52 (64) Room Air 12/23/18 00:00 60 18 91/58 (69) Room Air 12/23/18 00:00 100 Room Air 12/22/18 23:59 97.0 12/22/18 23:00 66 24 106/66 (79) Room Air 12/22/18 22:00 60 11 95/62 (73) 95 Room Air 12/22/18 21:00 71 17 115/72 (86) 100 Room Air 12/22/18 20:29 60 9 110/80 (90) 99 Room Air 12/22/18 20:00 100 Room Air 12/22/18 20:00 96.9 12/22/18 19:00 65 17 118/71 (87) 100 Room Air 12/22/18 19:00 65 12/22/18 18:00 71 13 94/57 (69) 100 Room Air 12/22/18 17:00 68 22 87/64 (72) 100 Room Air 12/22/18 16:00 110 13 78/65 (69) 99 Room Air 12/22/18 16:00 98 Room Air 12/22/18 15:00 80 26 124/80 (95) 100 Room Air 12/22/18 14:00 76 24 106/80 (89) 100 Room Air 12/22/18 13:00 93 16 133/92 (106) 96 Room Air 12/22/18 12:48 80 12/22/18 12:00 98 Room Air 12/22/18 12:00 83 19 127/81 (96) 98 Room Air 12/22/18 11:00 82 27 127/109 (115) 100 Room Air 12/22/18 10:00 82 7 128/102 (111) 95 Room Air 12/22/18 09:44 100 Room Air 12/22/18 09:00 90 25 143/98 (113) 96 Room Air 12/22/18 08:00 98 Room Air 12/22/18 08:00 67 12 122/90 (101) 98 Room Air 12/22/18 07:00 77 11 128/92 (104) 100 Room Air 12/22/18 07:00 75 12/22/18 06:00 85 13 122/84 (97) 99 Room Air I & O 12/23/18 07:00 Intake Total 2050 ml Output Total 1400 ml Balance 650 ml Height & Weight Height: 5'7.00" Weight: 129lbs. 0.0oz. 58.381044we; 19.7 BMI Method:Actual General Appearance: No Apparent Distress, Anxious, Chronically ill, Cachetic HEENT: Other (radiation burn neck) Neck: Full Range of Motion, Supple, Other (erythema and radiation changes to his neck) Respiratory: Lungs Clear, Normal Breath Sounds Cardiovascular: Regular Rate, Rhythm, No Edema Capillary Refill: Less Than 3 Seconds Extremity: Normal Capillary Refill, Normal Range of Motion, Non Tender, No Calf Tenderness Neurologic/Psychiatric: Alert, Oriented x3, No Motor/Sensory Deficits, Normal Mood/Affect Skin: Normal Color, Warm/Dry Results Lab Laboratory Tests 12/22/18 02:20 12/23/18 03:18 Assessment/Plan Assessment/Plan Nonsustained ventricular tachycardia with Defibrillator discharge -Cardiology -Amio gtt -Echo Fever-- with intragenic immunocompromise - last fever was 12/20 -Juarez cultures pending -MRSA - is negative -Zosyn, and D/C vanco Hx of ischemic cardiomyopathy with EF of 15% throat cancer -undergoing chemo/radiation- with severe uncontrolled pain -Pt states he feels like he's being cremated from inside out -Consult oncology -Fentanyl patch - -Morphine IV Tobacco use with probable COPD -Will follow as out pt. I doubt he would be able to do PFT at this time. Pancytopenia Malnutrition -consult dietary - TF -Pt has PEG tube Anemia/thrombocytopenia -Monitor REA GOODWIN DO December 23, 2018 05:26
--- NOTE | 2018-12-23 07:58 | Diagnostic Imaging Report ---
Indication: Nonsustained ventricular tachycardia. Comparison made with prior examination of 12/22/2018. Findings: There is cardiomegaly. There is some venous congestion. No pleural effusion or pneumothorax. Mediastinum is unremarkable. Pacemaker overlies the left hemithorax. Impression: Mild central pulmonary venous congestion otherwise unremarkable. Dictated by: Dictated on workstation # [id number]
[2018-12-23] MEDS: CARVEDILOL 12.5 MG (COREG) TABLET PO SCH (08:35)
[2018-12-23] MEDS: APIXABAN 2.5 MG (ELIQUIS) TABLET PO SCH (08:35)
[2018-12-23] MEDS ORDERED: DILTIAZEM 240 MG (CARDIZEM CD) CAP PO SCH (09:00)
[2018-12-23] MEDS ORDERED: lisINopril 10 MG (PRINIVIL) TABLET PO SCH (09:00)
--- NOTE | 2018-12-23 09:54 | Progress Note-Cardiology ---
Cardiology SOAP Progress Note Subjective: Feels better. No palp or cp. Shortness of breath at usual baseline Wishes to go home Wishes to be treated conservatively and empirically Objective: I&O/Vital Signs 12/22/18 12/22/18 12/22/18 12/23/18 22:00 23:00 23:59 00:00 Temp 97.0 Pulse 60 66 Resp 11 24 B/P (MAP) 95/62 (73) 106/66 (79) Pulse Ox 95 100 O2 Delivery Room Air Room Air Room Air 12/23/18 12/23/18 12/23/18 12/23/18 00:00 01:00 01:00 02:00 Pulse 60 73 73 59 Resp 18 30 9 B/P (MAP) 91/58 (69) 87/52 (64) 99/65 (76) O2 Delivery Room Air Room Air Room Air 12/23/18 12/23/18 12/23/18 12/23/18 03:00 04:00 04:00 04:00 Temp 97.5 Pulse 65 63 Resp 11 9 B/P (MAP) 106/65 (79) 116/86 (96) O2 Delivery Room Air Room Air Room Air 12/23/18 12/23/18 12/23/18 12/23/18 05:00 06:00 07:00 07:51 Temp 96.1 Pulse 63 61 64 68 Resp 11 16 10 B/P (MAP) 109/63 (78) 101/54 (70) 108/63 (78) O2 Delivery Room Air Room Air Room Air 12/23/18 12/23/18 07:52 08:00 Pulse 70 Resp 10 B/P (MAP) 106/58 (74) O2 Delivery Room Air Room Air 12/23/18 00:00 Intake Total 1070 ml Output Total 925 ml Balance 145 ml Weight (Pounds): 129 Weight (Ounces): 0.0 Weight (Calculated Kilograms): 58.471365 Constitutional: appears stated age, AAO x 3, PERRL, other (Hard of hearing) Respiratory: No accessory muscle use; chest is bilaterally symmetric, other ( fair air entry, diminished at the bases; prolonged exp phase; exp wheezes) Cardiovascular: regular rate-rhythm, S1 and S2 Gastrointestional: No tender; soft; No guarding, No rebound; audible bowel sounds, other (gastrostomy tube in place L lat to the umbilicus) Extremities: No clubbing, No cyanosis, No significant edema Neurologic/Psychiatric: alert, normal mood/affect, oriented x 3, other (moves all limbs equaly) Skin: No rash, No ulcerations Results/Procedures: Labs Laboratory Tests 12/22/18 20:23: Vancomycin Level Trough 7.1L 12/23/18 03:18: White Blood Count 2.3L, Red Blood Count 3.22L, Hemoglobin 10.7L, Hematocrit 32L , Mean Corpuscular Volume 98, Mean Corpuscular Hemoglobin 33, Mean Corpuscular Hemoglobin Concent 34, Red Cell Distribution Width 12.6, Platelet Count 112L, Mean Platelet Volume 10.4, Neutrophils (%) (Auto) 72, Lymphocytes (%) (Auto) 6L , Monocytes (%) (Auto) 22H, Eosinophils (%) (Auto) 0, Basophils (%) (Auto) 0, Neutrophils # (Auto) 1.7L, Lymphocytes # (Auto) 0.1L, Monocytes # (Auto) 0.5, Eosinophils # (Auto) 0.0, Basophils # (Auto) 0.0, Sodium Level 138, Potassium Level 4.0, Chloride Level 104, Carbon Dioxide Level 23, Anion Gap 11, Blood Urea Nitrogen 14, Creatinine 0.62, Estimat Glomerular Filtration Rate > 60, BUN/ Creatinine Ratio 23, Glucose Level 131H, Calcium Level 9.1, Phosphorus Level 2.9 , Magnesium Level 2.0 Microbiology 12/21/18 Blood Culture - Preliminary, Resulted No growth 12/21/18 Gram Stain - Final, Resulted 12/21/18 Sputum Culture - Preliminary, Resulted Usual upper respiratory rayne Laboratory Tests 12/22/18 02:20 12/23/18 03:18 A/P: Assessment: Arrrhythmia, PSVT and PAF with a fast vent response, leading to inappropriate ICD discharges Noncompliance with meds Nonischemic cardiomyopathy, likely alcohol-related. Last cardiac cath was on by Tyron Conklin DO, at [facility]. It is reported to have shown right dominant cor circulation, 40% stenosis of mid LCX, and minor luminal irreg elsewhere. LVEF was reported to be 60% on that cath of 09/10/14. However, echo of Mar [address] Meng is reported to have shown severely dilated LV, EF 15%, mod to mod severe MR, mod TR, PASP 55 mmHg NSVT and inducible VT (programmed vent stim on isoproterenol) per EP studies at [place], [place]. He had an EP Study on 09/13/14 by at [facility]. Diagnosis was severe nonischemic cardiomyopathy and syncope without prodrome and he received a [employer]-D ([employer]). See below (Plan) for device interrogation and changes carried during this hospitalization Acute on chronic systolic CHF, due to above-noted conditions. This is currently clinically better compensated Type 2 PR due to ac on [facility] CHF Echo 12/21/18 (Dr Jarquin): LVEF 20-25%, grade 1 chacon dysfunction, basal-mid antlat akinesis, mod to severe MR, PASP 35-40 mmHg Chronic tobacco and alcohol abuse Tonsillar SCC, treated with chemo and radiation S/p PEG Probable COPD Plan: * Treat with BB and NITA-inhib for cm and CHF. Reduce NITA-inhib due to low- normal BP * Treat with long-acting diltiazem for vent rate control during PSVT/PAF * Treat with apixaban for stroke prophylaxis * Pt wishes to avoid ICD shocks and also keep his medical regimen as simple as possible * We have added rate-controlling agents, removed the VT treatment zone set at 167 bpm (the inappropriate treatment of which was resulting in most of his device-related symptoms) and set a VT monitor zone at 180 and VF treatment zone at 200 bpm. We have increased the safety margin of pacing to 3:1 because pt received iv amiodarone during initial hosp and we would like to protect against any temporarily elevated capture threshold (although none currently demonstrated on repeat interrogation of 12/22/18) * Close outpatient f/u and compliance with meds and medical instructions is advised * Advised to refrain from tobacco and alcohol use * All of the above was discussed in detail and questions answered. He understands and states he will try to comply VANITA BERGMAN MD [facility] CCDS December 23, 2018 09:54
--- NOTE | 2018-12-23 10:24 | Discharge Summary ---
Diagnosis/Chief Complaint Date of Admission December 20, 2018 at 20:45 Date of Discharge 12/23/2018 Admission Diagnosis Admission Diagnosis See problem list Discharge Diagnosis See below Problems/Diagnosis: (1) Defibrillator discharge Assessment & Plan: - Cardiology consulted and managing, settings have been adjusted 12/23: Patient was started on rate control meds and setting were adjusted, Will f.u with Dr Gregorio in 1 week Status: Acute (2) Acute on chronic diastolic CHF (congestive heart failure) Assessment & Plan: - Elevated BNP likely 2/2 to discharges Status: Acute (3) Throat cancer Assessment & Plan: - Leukopenia 2/2 chemo/Rad 12/23: Resume treatment protocol per Onc Status: Acute (4) Nonischemic cardiomyopathy Status: Chronic (5) Tobacco abuse Assessment & Plan: - Discussed the importance of cessation Status: Chronic Discharge Summary-Simple/Stand Procedures - Device Interrogation Consultations Dr Gregorio, Cardiology Discharge Physical Examination Allergies: Coded Allergies: No Known Drug Allergies (Unverified , 10/30/18) Vitals & I&Os Vital Sign - Last 12Hours Date Time Temp Pulse Resp B/P (MAP) Pulse Ox O2 Delivery O2 Flow Rate FiO2 12/23/18 08:00 70 10 106/58 (74) Room Air 12/23/18 07:51 96.1 12/23/18 00:00 100 Intake and Output 12/23/18 00:00 Intake Total 1070 ml Output Total 925 ml Balance 145 ml General Appearance: Alert, Oriented X3, Cooperative, No Acute Distress, Other ( thin, elderly male) HEENT: Mucous Memb Moist/[place] Respiratory: Other (diffuse crackles and troubles clearing secreations) Cardiovascular: Regular Rate, No Murmurs Abdominal: Normal Bowel Sounds, Soft, No Tenderness, No Masses, Other (PEG tube in place, C/D/I) Extremities: No Edema, No Tenderness/Swelling Skin: No Rashes, No Breakdown Neuro: Normal Speech, Sensation Intact, Cranial Nerves 3-12 NL Psych/Mental Status: Mental Status NL, Mood NL Hospital Course Was the Problem List Reviewed?: Yes See final discharge diagnosis. Discussion & Recommendations 58 yo M that is currently undergoing treatment for throat cancer that presented after defibrillator went off several times. Device was interrogated during admission and adjusted during admission. Patient was placed on long active Cardizem to help with rate control. Patient is discharged with close f.u with Dr Gregorio and Dr Meza. Defibrillator did not shock during admission. Discharge Condition at discharge Poor prognosis Instructions to patient/family Please see electronic discharge instructions given to patient. Discharge Medications Reviewed and agree with Discharge Medication list on patient's Discharge Instruction sheet Clinical Quality Measures DVT/VTE Risk/Contraindication: Risk Factor Score Per Nursin RFS Level Per Nursing on Admit: 1=Low/No VTE PPX Copy Copies To 1: RAD CAGLE MD, HOLLY R MD December 23, 2018 10:24
[2018-12-23] MEDS ORDERED: APIX2.5T PO (10:28)
[2018-12-23] MEDS ORDERED: DILT240C97 PO (10:28)
--- NOTE | 2018-12-23 10:30 | Discharge Instructions ---
Discharge [facility] Discharge Medications New, Converted or Re-Newed RX: Transmitted to Pharmacy New Medications: Apixaban (Eliquis) 2.5 Mg Tablet 2.5 MG PO BID for 14 Days, #28 TAB Diltiazem HCl (Diltiazem 24Hr Cd) 240 Mg Cap.er.24h 240 MG PO DAILY, #30 CAP Continued Medications: Carvedilol (Carvedilol) 12.5 Mg Tablet 12.5 MG PO BID, TAB LAST FILLED #180 19 Fentanyl (Fentanyl Patch 12 MCG) 1 Each Patch.td72 12 MCG TD Q72H, PATCH Furosemide (Furosemide) 40 Mg Tablet 80 MG PO DAILY, TAB TAKES 2 (40MG) TABLETS Hydrocodone/Acetaminophen (Hydrocodone-Acetamin 5-325 mg) 1 Each Tablet 1 TAB PO Q6H PRN for PAIN-MODERATE, TAB Lisinopril (Lisinopril) 2.5 Mg Tablet 2.5 MG PO DAILY, TAB LAST FILLED #90 19 [Magic Mouthwash] () 10 ML PO AC SWISH AND SWALLOW; VISOUS LIDOCIANE, BENADRYL, NYSTATIN, DEXAMEHTASONE 1:1:1:1 Ondansetron HCl (Zofran) 4 Mg Tab 4 MG PO Q4H PRN for NAUSEA/VOMITING-1ST LINE, TAB Polyethylene Glycol 3350 (Miralax) 17 Gm Powd.pack 17 GM PO DAILY, EACH Discontinued Medications: Doxylamine Succinate (Sleep Aid) 25 Mg Tablet 25 MG PO HS PRN for SLEEP, TAB Patient Instructions Goal/Follow Up Appt: You have a hospital f/u appt with Dr Cagle on 01/06/2019 @ 1140 Dr Gregorio would like to see you in 1 week Patient Instructions: - Make sure you review you med list, medications have been added and changed Activity & Diet Discharge Diet: Tube Feeding Activity as Tolerated: Yes Copy Copies To 1: RAD CAGLE MD, HOLLY R MD December 23, 2018 10:30
--- NOTE | 2018-12-23 11:23 | Cardiology Progress Note ---
Cardiology SOAP Progress Note Subjective: No further cardiac symptoms. Objective: I&O/Vital Signs 12/22/18 12/23/18 12/23/18 12/23/18 23:59 00:00 00:00 01:00 Temp 97.0 Pulse 60 73 Resp 18 30 B/P (MAP) 91/58 (69) 87/52 (64) Pulse Ox 100 O2 Delivery Room Air Room Air Room Air 12/23/18 12/23/18 12/23/18 12/23/18 01:00 02:00 03:00 04:00 Pulse 73 59 65 Resp 9 11 B/P (MAP) 99/65 (76) 106/65 (79) O2 Delivery Room Air Room Air Room Air 12/23/18 12/23/18 12/23/18 12/23/18 04:00 04:00 05:00 06:00 Temp 97.5 Pulse 63 63 61 Resp 9 11 16 B/P (MAP) 116/86 (96) 109/63 (78) 101/54 (70) O2 Delivery Room Air Room Air Room Air 12/23/18 12/23/18 12/23/18 12/23/18 07:00 07:51 07:52 08:00 Temp 96.1 Pulse 64 68 70 Resp 10 10 B/P (MAP) 108/63 (78) 106/58 (74) O2 Delivery Room Air Room Air Room Air 12/23/18 00:00 Intake Total 1070 ml Output Total 925 ml Balance 145 ml Weight (Pounds): 129 Weight (Ounces): 0.0 Weight (Calculated Kilograms): 58.716116 Constitutional: appears stated age, AAO x 3, PERRL, other (Hard of hearing) Respiratory: No accessory muscle use; chest is bilaterally symmetric, other ( fair air entry, diminished at the bases; prolonged exp phase; exp wheezes) Cardiovascular: regular rate-rhythm, S1 and S2 Gastrointestional: No tender; soft; No guarding, No rebound; audible bowel sounds, other (gastrostomy tube in place L lat to the umbilicus) Extremities: No clubbing, No cyanosis, No significant edema Neurologic/Psychiatric: alert, normal mood/affect, oriented x 3, other (moves all limbs equaly) Skin: No rash, No ulcerations Results/Procedures: Labs Laboratory Tests 12/22/18 20:23: Vancomycin Level Trough 7.1L 12/23/18 03:18: White Blood Count 2.3L, Red Blood Count 3.22L, Hemoglobin 10.7L, Hematocrit 32L , Mean Corpuscular Volume 98, Mean Corpuscular Hemoglobin 33, Mean Corpuscular Hemoglobin Concent 34, Red Cell Distribution Width 12.6, Platelet Count 112L, Mean Platelet Volume 10.4, Neutrophils (%) (Auto) 72, Lymphocytes (%) (Auto) 6L , Monocytes (%) (Auto) 22H, Eosinophils (%) (Auto) 0, Basophils (%) (Auto) 0, Neutrophils # (Auto) 1.7L, Lymphocytes # (Auto) 0.1L, Monocytes # (Auto) 0.5, Eosinophils # (Auto) 0.0, Basophils # (Auto) 0.0, Sodium Level 138, Potassium Level 4.0, Chloride Level 104, Carbon Dioxide Level 23, Anion Gap 11, Blood Urea Nitrogen 14, Creatinine 0.62, Estimat Glomerular Filtration Rate > 60, BUN/ Creatinine Ratio 23, Glucose Level 131H, Calcium Level 9.1, Phosphorus Level 2.9 , Magnesium Level 2.0 Microbiology 12/21/18 Blood Culture - Preliminary, Resulted No growth 12/21/18 Gram Stain - Final, Resulted 12/21/18 Sputum Culture - Preliminary, Resulted Usual upper respiratory rayne A/P: Assessment/Dx: ICD shock, Atrial flutter/Altrial Tachycardia, PAF, NSVT, Non ischemic Cardiomyopathy, Throat cancer, undergoing chemotherapy, Active smoking, Leukopenia, thrombocytopenia Plan: Dr Gregorio requested me to follow up for Cardiac Electrophysiology. ICD shock, this is a [employer] device which is a biventricular ICD done in [place] in 2014. I have reviewed all strips available from device interrogation from 12/21/2018 and 12/22/2018 which shows normal device capture and sensing. Battery longevity 1.3 years. 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 The telemetry stips shows Atrial tachycardia/Atrial flutter at CL ~ 400 ms with heart rate 155 bpm, with one to one conduction to the ventricle. Numerous episodes. Degeneration to Atrial fibrillation is noted, with rapid conduction to the ventricle which was read by the device as VF and 40J shock given x 1. Inappropriate shock. Few episodes of likely NSVT also noted. Device recommendations: - Change VT 1 monitor zone to 167 bpm. - Change VT 2 therapy zone to 188 bpm. with ATP followed by shock. - Change VF zone with ATP during charging and then shock at 214 bpm. - Battery longevity 1.3 years - arrange close follow up and device change in the near future. - Biventricular pacing 92%, likely due to SVT/AT/AF Arrhythmia Recommendations: - Amiodarone or other AAD therapy (other option is dofetilide - due to severe LV systolic dysfunction). - Maximum tolerated beta carlos. - Consider EP study and possible Atrial Tachycardia/Atrial Flutter ablation. - Oral anticoagulation for PAF. All device and Arrhythmia recommendations should be considered in light of prognosis from throat cancer. Thank you for your consultation. Please call me if you have any questions. Edison Jarquin MD, FACP, FACC, FSCAI, FHRS, CCDS Interventional Cardiology Cardiac Electrophysiology Vascular Medicine and Endovascular Interventions Shannon JARQUIN MD December 23, 2018 11:23
[2018-12-24] MEDS ORDERED: FENTANYL PATCH REMOVAL TP SCH (09:00)
[2018-12-24] MEDS ORDERED: lisINopril 5 MG (PRINIVIL) TABLET PO SCH (09:00)
== END 2018-12-23 12:33 | disposition home or self-care (01) | DRG 280 ==
LOC: EDUNIT# 18:32 → ER FS 18:33 → ICU 20:45
PROVIDERS: ADMIT Internal Medicine; ATTEND Internal Medicine
DX: I47.2 Ventricular tachycardia (principal); I49.01 Ventricular fibrillation; I50.23 Acute on chronic systolic (congestive) heart failure; I21.A1 Myocardial infarction type 2; I48.0 Paroxysmal atrial fibrillation; I47.1 Supraventricular tachycardia; E46 Unspecified protein-calorie malnutrition; I42.6 Alcoholic cardiomyopathy; B37.0 Candidal stomatitis; R64 Cachexia; D61.818 Other pancytopenia; I11.0 Hypertensive heart disease with heart failure; G89.3 Neoplasm related pain (acute) (chronic); I27.22 Pulmonary hypertension due to left heart disease; F10.21 Alcohol dependence, in remission; C09.9 Malignant neoplasm of tonsil, unspecified; J43.9 Emphysema, unspecified; I25.10 Atherosclerotic heart disease of native coronary artery without angina pectoris; I73.9 Peripheral vascular disease, unspecified; D69.59 Other secondary thrombocytopenia; D64.81 Anemia due to antineoplastic chemotherapy; Z95.810 Presence of automatic (implantable) cardiac defibrillator; Z79.899 Other long term (current) drug therapy; B18.2 Chronic viral hepatitis C; K59.00 Constipation, unspecified; R79.89 Other specified abnormal findings of blood chemistry; Z93.1 Gastrostomy status; T45.1X5A Adverse effect of antineoplastic and immunosuppressive drugs, initial encounter; Z87.19 Personal history of other diseases of the digestive system; Z91.14 Patient's other noncompliance with medication regimen
CPT/HCPCS: 36415; 71045; 80048; 80053; 80202; 81000; 83605; 83735; 83880; 84100; 84484; 85007; 85025; 85027; 85610; 85730; 87040; 87070; 87077; 87081; 87184; 87205; 93005; 93306; 94640; 96361; 96365; 96366; 96367; 96368; 96375

== ENCOUNTER 2019-01-12 08:36 | Outpatient (RCR) | payer MEDICARE, OTHER ==
[2018-11-17 13:19] LABS: BASOPHILS % (AUTO) 0 % (0-10); EOSINOPHILS # (AUTO) 0.1 10^3/uL (0.0-0.3); EOSINOPHILS % (AUTO) 2 % (0-10); HEMATOCRIT 40 % (40-54); HEMOGLOBIN 13.7 G/DL (13.3-17.7); LYMPHOCYTES # (AUTO) 1.8 X 10^3 (1.0-4.0); LYMPHOCYTES % (AUTO) 27 % (12-44); MEAN CORPUSCULAR HEMOGLOBIN 34 PG (25-34); MEAN CORPUSCULAR HGB CONC 34 G/DL (32-36); MEAN CORPUSCULAR VOLUME 100 FL (80-99); MEAN PLATELET VOLUME 11.1 FL (7.4-10.4); MONOCYTES # (AUTO) 0.8 X 10^3 (0.0-1.0); MONOCYTES % (AUTO) 13 % (0-12); NEUTROPHILS # (AUTO) 3.9 X 10^3 (1.8-7.8); NEUTROPHILS % (AUTO) 58 % (42-75); PLATELET COUNT 197 10^3/uL (130-400); RED CELL DISTRIBUTION WIDTH 12.4 % (10.0-14.5); WHITE BLOOD COUNT 6.6 10^3/uL (4.3-11.0)
[2018-11-17 13:39] LABS: ALANINE AMINOTRANSFERASE 18 U/L (0-55); ALBUMIN 3.9 GM/DL (3.2-4.5); ALKALINE PHOSPHATASE 42 U/L (40-136); BILIRUBIN,TOTAL 0.4 MG/DL (0.1-1.0); BUN/CREATININE RATIO 11; CALCIUM 9.4 MG/DL (8.5-10.1); CARBON DIOXIDE 25 MMOL/L (21-32); CHLORIDE 106 MMOL/L (98-107); CREATININE SERUM 0.73 MG/DL (0.60-1.30); GFR ESTIMATED > 60; GLUCOSE 91 MG/DL (70-105); POTASSIUM 3.7 MMOL/L (3.6-5.0); SODIUM 139 MMOL/L (135-145); TOTAL PROTEIN 6.9 GM/DL (6.4-8.2)
[2018-11-24 11:17] LABS: BASOPHILS % (AUTO) 0 % (0-10); EOSINOPHILS # (AUTO) 0.1 10^3/uL (0.0-0.3); EOSINOPHILS % (AUTO) 1 % (0-10); HEMATOCRIT 43 % (40-54); HEMOGLOBIN 14.5 G/DL (13.3-17.7); LYMPHOCYTES # (AUTO) 0.9 X 10^3 (1.0-4.0); LYMPHOCYTES % (AUTO) 10 % (12-44); MEAN CORPUSCULAR HEMOGLOBIN 33 PG (25-34); MEAN CORPUSCULAR HGB CONC 33 G/DL (32-36); MEAN CORPUSCULAR VOLUME 100 FL (80-99); MEAN PLATELET VOLUME 11.1 FL (7.4-10.4); MONOCYTES # (AUTO) 0.8 X 10^3 (0.0-1.0); MONOCYTES % (AUTO) 8 % (0-12); NEUTROPHILS # (AUTO) 7.8 X 10^3 (1.8-7.8); NEUTROPHILS % (AUTO) 82 % (42-75); PLATELET COUNT 184 10^3/uL (130-400); RED CELL DISTRIBUTION WIDTH 12.4 % (10.0-14.5); WHITE BLOOD COUNT 9.6 10^3/uL (4.3-11.0)
[2018-11-24 11:37] LABS: BUN/CREATININE RATIO 19; CALCIUM 9.7 MG/DL (8.5-10.1); CARBON DIOXIDE 23 MMOL/L (21-32); CHLORIDE 108 MMOL/L (98-107); CREATININE SERUM 0.79 MG/DL (0.60-1.30); GFR ESTIMATED > 60; GLUCOSE 113 MG/DL (70-105); POTASSIUM 4.5 MMOL/L (3.6-5.0); SODIUM 138 MMOL/L (135-145)
[2018-12-01 09:52] LABS: BASOPHILS % (AUTO) 0 % (0-10); EOSINOPHILS # (AUTO) 0.1 10^3/uL (0.0-0.3); EOSINOPHILS % (AUTO) 2 % (0-10); HEMATOCRIT 44 % (40-54); HEMOGLOBIN 14.7 G/DL (13.3-17.7); LYMPHOCYTES # (AUTO) 0.7 X 10^3 (1.0-4.0); LYMPHOCYTES % (AUTO) 12 % (12-44); MEAN CORPUSCULAR HEMOGLOBIN 33 PG (25-34); MEAN CORPUSCULAR HGB CONC 34 G/DL (32-36); MEAN CORPUSCULAR VOLUME 99 FL (80-99); MEAN PLATELET VOLUME 10.6 FL (7.4-10.4); MONOCYTES % (AUTO) 17 % (0-12); NEUTROPHILS % (AUTO) 69 % (42-75); PLATELET COUNT 115 10^3/uL (130-400); RED CELL DISTRIBUTION WIDTH 12.1 % (10.0-14.5); WHITE BLOOD COUNT 5.8 10^3/uL (4.3-11.0)
[2018-12-01 10:11] LABS: BUN/CREATININE RATIO 22; CALCIUM 10.1 MG/DL (8.5-10.1); CARBON DIOXIDE 25 MMOL/L (21-32); CHLORIDE 103 MMOL/L (98-107); CREATININE SERUM 0.88 MG/DL (0.60-1.30); GFR ESTIMATED > 60; GLUCOSE 101 MG/DL (70-105); POTASSIUM 4.5 MMOL/L (3.6-5.0); SODIUM 138 MMOL/L (135-145)
[2018-12-15 09:16] LABS: BASOPHILS % (AUTO) 0 % (0-10); EOSINOPHILS # (AUTO) 0.1 10^3/uL (0.0-0.3); EOSINOPHILS % (AUTO) 2 % (0-10); HEMATOCRIT 42 % (40-54); HEMOGLOBIN 14.3 G/DL (13.3-17.7); LYMPHOCYTES # (AUTO) 0.4 X 10^3 (1.0-4.0); LYMPHOCYTES % (AUTO) 9 % (12-44); MEAN CORPUSCULAR HEMOGLOBIN 33 PG (25-34); MEAN CORPUSCULAR HGB CONC 34 G/DL (32-36); MEAN CORPUSCULAR VOLUME 97 FL (80-99); MEAN PLATELET VOLUME 10.4 FL (7.4-10.4); MONOCYTES # (AUTO) 0.6 X 10^3 (0.0-1.0); MONOCYTES % (AUTO) 13 % (0-12); NEUTROPHILS # (AUTO) 3.5 X 10^3 (1.8-7.8); NEUTROPHILS % (AUTO) 76 % (42-75); PLATELET COUNT 105 10^3/uL (130-400); RED CELL DISTRIBUTION WIDTH 12.4 % (10.0-14.5); WHITE BLOOD COUNT 4.7 10^3/uL (4.3-11.0)
[2018-12-15 09:32] LABS: BUN/CREATININE RATIO 21; CARBON DIOXIDE 25 MMOL/L (21-32); CHLORIDE 101 MMOL/L (98-107); CREATININE SERUM 0.78 MG/DL (0.60-1.30); GFR ESTIMATED > 60; GLUCOSE 105 MG/DL (70-105); POTASSIUM 4.2 MMOL/L (3.6-5.0); SODIUM 137 MMOL/L (135-145)
[2018-12-26 10:07] LABS: BASOPHILS % (AUTO) 0 % (0-10); EOSINOPHILS % (AUTO) 0 % (0-10); HEMATOCRIT 37 % (40-54); HEMOGLOBIN 12.6 G/DL (13.3-17.7); LYMPHOCYTES # (AUTO) 0.4 X 10^3 (1.0-4.0); LYMPHOCYTES % (AUTO) 7 % (12-44); MEAN CORPUSCULAR HEMOGLOBIN 33 PG (25-34); MEAN CORPUSCULAR HGB CONC 34 G/DL (32-36); MEAN CORPUSCULAR VOLUME 98 FL (80-99); MEAN PLATELET VOLUME 9.6 FL (7.4-10.4); MONOCYTES # (AUTO) 0.8 X 10^3 (0.0-1.0); MONOCYTES % (AUTO) 15 % (0-12); NEUTROPHILS % (AUTO) 78 % (42-75); PLATELET COUNT 168 10^3/uL (130-400); RED CELL DISTRIBUTION WIDTH 13.5 % (10.0-14.5); WHITE BLOOD COUNT 5.2 10^3/uL (4.3-11.0)
[2018-12-26 10:29] LABS: ALANINE AMINOTRANSFERASE 42 U/L (0-55); ALBUMIN 3.5 GM/DL (3.2-4.5); ALKALINE PHOSPHATASE 40 U/L (40-136); BILIRUBIN,TOTAL 0.4 MG/DL (0.1-1.0); BUN/CREATININE RATIO 31; CALCIUM 9.2 MG/DL (8.5-10.1); CARBON DIOXIDE 28 MMOL/L (21-32); CHLORIDE 95 MMOL/L (98-107); CREATININE SERUM 1.02 MG/DL (0.60-1.30); GFR ESTIMATED > 60; GLUCOSE 174 MG/DL (70-105); MAGNESIUM 2.2 MG/DL (1.8-2.4); POTASSIUM 3.4 MMOL/L (3.6-5.0); SODIUM 135 MMOL/L (135-145); TOTAL PROTEIN 6.6 GM/DL (6.4-8.2)
[~2019-01-12] VITALS: Ht 170.2 cm; Wt 54.9 kg
[~2019-01-12 08:36] MED LIST changes: +APIX2.5T PO; +DILT240C97 PO; +DOXY25TA50 PO; +FENT1PAT6 TD; +FLUOROURACIL IV SCH; +FOSAPREPITANT DIMEGLUMINE 150 MG in NS (IVPB) CANCER CENTER ONLY 150 ML IV SCH; +HYDR-3812 PO; +MAGIC MOUTHWASH PO; +NS IV 1000 ML (CANCER CTR) IV SCH; +NS IV SCH; +ONDN4T PO; +PALONOSETRON HCL 0.25 MG, DEXAMETHASONE INJECTION 10 MG in NS (IVPB) CANCER CENTER 50 ML IV SCH; +POLY17PO6 PO; +[UNRECOGNIZED DRUG - OTHER] IV SCH
== END 2019-01-13 | disposition home or self-care (01) ==
LOC: ONC 08:36
PROVIDERS: ATTEND Internal Medicine Hematology & Oncology
DX: Z51.0 Encounter for antineoplastic radiation therapy (principal); Z51.11 Encounter for antineoplastic chemotherapy; C09.9 Malignant neoplasm of tonsil, unspecified; C77.0 Secondary and unspecified malignant neoplasm of lymph nodes of head, face and neck; J43.9 Emphysema, unspecified; E46 Unspecified protein-calorie malnutrition; Z68.1 Body mass index [BMI] 19.9 or less, adult; I11.0 Hypertensive heart disease with heart failure; I50.22 Chronic systolic (congestive) heart failure; I25.10 Atherosclerotic heart disease of native coronary artery without angina pectoris; B18.2 Chronic viral hepatitis C; M89.9 Disorder of bone, unspecified; Z95.0 Presence of cardiac pacemaker; Z79.899 Other long term (current) drug therapy; Z79.01 Long term (current) use of anticoagulants
CPT/HCPCS: 36415; 36591; 77300; 77301; 77334; 77336; 77338; 77386; 80048; 80053; 83735; 85025; 96367; 96375; 96413; 96416; 99204; 99213; 99214

== ENCOUNTER → 2019-02-13 | Outpatient (CLI) | payer MEDICARE, OTHER ==
[~2019-02-13] MED LIST changes: -FLUOROURACIL IV SCH; -FOSAPREPITANT DIMEGLUMINE 150 MG in NS (IVPB) CANCER CENTER ONLY 150 ML IV SCH; +HOLD METFORMIN - RECEIVED CONTRAST 20 ML VIAL IV SCH; +IOHEXOL 350 MG/ML 100 ML (OMNIPAQUE 350) VIAL IV ONE; +NS 100 ML (IVPB) BAG IV ONE; -NS IV 1000 ML (CANCER CTR) IV SCH; -NS IV SCH; -PALONOSETRON HCL 0.25 MG, DEXAMETHASONE INJECTION 10 MG in NS (IVPB) CANCER CENTER 50 ML IV SCH; -[UNRECOGNIZED DRUG - OTHER] IV SCH
--- NOTE | 2019-02-13 11:38 | Diagnostic Imaging Report ---
EXAMINATION: CT of the neck and chest with intravenous contrast. HISTORY: Tonsillar cancer. TECHNIQUE: Axial tomographic images of the neck and chest were obtained with the uneventful administration of iodinated contrast agent. FINDINGS: Comparison is 10/23/2018. At the previously seen mass in the region of the right palatine tonsil, there is now an area of hypoattenuating soft tissue thickening. This has decreased in size measuring approximately 15 x 8 mm, previously 20 x 17 mm. In addition, the right level II and III lymphadenopathy has improved with the largest level II lymph node now measuring 27 x 7 mm, previously 32 x 18 mm. The level III lymph node has decreased in size measuring 8 x 9 mm, previously 15 x 12 mm. No new lymphadenopathy is seen. The right internal jugular vein is attenuated due to mass effect from the previously enlarged lymph nodes, but this remains patent. The other vasculature is normal with the exception of carotid bifurcation calcifications. Fascial planes are preserved. Limited views of the brain are normal. There is some debris in the Mastoid air cells. Port catheter and pacemaker are present. Lungs are moderately emphysematous. There is some mild dependent atelectasis. No suspicious pulmonary nodules are seen. No edema or pneumonia. No pleural effusion or pneumothorax. Left ventricle is mildly dilated. There are coronary artery calcifications. The aorta is normal in caliber. No central pulmonary embolism. No axillary or supraclavicular lymphadenopathy. There is a four-vessel configuration of the aortic arch. No mediastinal lymphadenopathy. Limited views of the upper abdomen reveal gastrostomy tube. There is a cyst in the left kidney. A few calcifications are seen in the right kidney. There is an unchanged lytic lesion in the right humeral head. This showed no abnormal uptake on prior PET/CT. IMPRESSION: 1. Improved right tonsillar mass and right level II and III lymphadenopathy. 2. No metastatic disease seen in the chest. Dictated by: Dictated on workstation # [id number]
== END ==
LOC: RAD 10:01
PROVIDERS: ATTEND Internal Medicine Hematology & Oncology
DX: C09.9 Malignant neoplasm of tonsil, unspecified (principal); R59.0 Localized enlarged lymph nodes; Z95.828 Presence of other vascular implants and grafts; Z95.0 Presence of cardiac pacemaker
CPT/HCPCS: 70491; 71260

== ENCOUNTER 2019-02-18 09:41 | Outpatient (RCR) | payer MEDICARE, OTHER ==
[2019-01-21 08:38] LABS: BASOPHILS % (AUTO) 0 % (0-10); EOSINOPHILS % (AUTO) 0 % (0-10); HEMATOCRIT 33 % (40-54); LYMPHOCYTES # (AUTO) 0.5 X 10^3 (1.0-4.0); LYMPHOCYTES % (AUTO) 6 % (12-44); MEAN CORPUSCULAR HEMOGLOBIN 34 PG (25-34); MEAN CORPUSCULAR HGB CONC 34 G/DL (32-36); MEAN CORPUSCULAR VOLUME 102 FL (80-99); MEAN PLATELET VOLUME 9.8 FL (7.4-10.4); MONOCYTES # (AUTO) 1.3 X 10^3 (0.0-1.0); MONOCYTES % (AUTO) 17 % (0-12); NEUTROPHILS # (AUTO) 5.7 X 10^3 (1.8-7.8); NEUTROPHILS % (AUTO) 76 % (42-75); PLATELET COUNT 191 10^3/uL (130-400); WHITE BLOOD COUNT 7.4 10^3/uL (4.3-11.0)
[2019-01-21 08:56] LABS: ALANINE AMINOTRANSFERASE 21 U/L (0-55); ALBUMIN 3.8 GM/DL (3.2-4.5); ALKALINE PHOSPHATASE 47 U/L (40-136); BILIRUBIN,TOTAL 0.3 MG/DL (0.1-1.0); BUN/CREATININE RATIO 23; CALCIUM 9.8 MG/DL (8.5-10.1); CARBON DIOXIDE 28 MMOL/L (21-32); CHLORIDE 94 MMOL/L (98-107); CREATININE SERUM 0.82 MG/DL (0.60-1.30); GFR ESTIMATED > 60; GLUCOSE 126 MG/DL (70-105); POTASSIUM 4.1 MMOL/L (3.6-5.0); SODIUM 133 MMOL/L (135-145)
[~2019-02-18 09:41] MED LIST changes: -HOLD METFORMIN - RECEIVED CONTRAST 20 ML VIAL IV SCH; -IOHEXOL 350 MG/ML 100 ML (OMNIPAQUE 350) VIAL IV ONE; -NS 100 ML (IVPB) BAG IV ONE
[2019-02-18 09:56] LABS: BASOPHILS % (AUTO) 0 % (0-10); EOSINOPHILS # (AUTO) 0.1 10^3/uL (0.0-0.3); EOSINOPHILS % (AUTO) 2 % (0-10); HEMATOCRIT 32 % (40-54); HEMOGLOBIN 10.6 G/DL (13.3-17.7); LYMPHOCYTES # (AUTO) 0.7 X 10^3 (1.0-4.0); LYMPHOCYTES % (AUTO) 15 % (12-44); MEAN CORPUSCULAR HEMOGLOBIN 36 PG (25-34); MEAN CORPUSCULAR HGB CONC 33 G/DL (32-36); MEAN CORPUSCULAR VOLUME 107 FL (80-99); MEAN PLATELET VOLUME 9.9 FL (7.4-10.4); MONOCYTES # (AUTO) 0.6 X 10^3 (0.0-1.0); MONOCYTES % (AUTO) 13 % (0-12); NEUTROPHILS # (AUTO) 3.1 X 10^3 (1.8-7.8); NEUTROPHILS % (AUTO) 70 % (42-75); PLATELET COUNT 159 10^3/uL (130-400); RED CELL DISTRIBUTION WIDTH 19.3 % (10.0-14.5); WHITE BLOOD COUNT 4.4 10^3/uL (4.3-11.0)
[2019-02-18 10:13] LABS: ALANINE AMINOTRANSFERASE 26 U/L (0-55); ALBUMIN 3.8 GM/DL (3.2-4.5); ALKALINE PHOSPHATASE 34 U/L (40-136); BILIRUBIN,TOTAL 0.3 MG/DL (0.1-1.0); BUN/CREATININE RATIO 16; CALCIUM 9.3 MG/DL (8.5-10.1); CARBON DIOXIDE 21 MMOL/L (21-32); CHLORIDE 109 MMOL/L (98-107); CREATININE SERUM 0.62 MG/DL (0.60-1.30); GFR ESTIMATED > 60; GLUCOSE 85 MG/DL (70-105); POTASSIUM 3.7 MMOL/L (3.6-5.0); SODIUM 139 MMOL/L (135-145); TOTAL PROTEIN 6.6 GM/DL (6.4-8.2)
== END 2019-04-21 | disposition home or self-care (01) ==
LOC: ONC 09:41
PROVIDERS: ATTEND Internal Medicine Hematology & Oncology
DX: C09.9 Malignant neoplasm of tonsil, unspecified (principal); J43.9 Emphysema, unspecified; Z95.0 Presence of cardiac pacemaker
CPT/HCPCS: 36415; 77336; 80053; 85025; 99213

== ENCOUNTER → 2019-03-24 | Outpatient (CLI) | payer MEDICARE, OTHER ==
--- NOTE | 2019-03-24 13:07 | Diagnostic Imaging Report ---
INDICATION: Right tonsil squamous cell carcinoma. Study is performed to evaluate response to treatment and restaging. TECHNIQUE: Serum blood glucose level at the time of injection was 121 mg/dL. The patient was administered 14.7 mCi of F-18 FDG intravenously in the right forearm, and PET imaging was performed from the top of the skull to mid thighs. Noncontrast CT was also performed for attenuation correction and anatomic correlation. COMPARISON: Correlation is made with prior PET/CT from 10/14/2018. FINDINGS: Symmetric activity throughout the brain is identified. The previously noted regions of FDG uptake in the region of the right palatine tonsil are no longer visualized. In addition, abnormal hypermetabolism in the right sided level II and level III lymph nodes is no longer appreciated. No new regions of uptake in the neck are identified. No mediastinal or hilar hypermetabolism is seen. There is a pulmonary nodule in the posterolateral left lower lobe measuring approximately 13 mm. This demonstrates an increase in size when compared with prior conventional CT chest from 02/13/2019, in which nodule measured approximately 6 mm. This only demonstrates very mild low-level uptake with SUV of 2 or less. No other pulmonary nodules are seen. Imaging through the abdomen and pelvis demonstrates physiologic activity within the GI and tracts. No suspicious regions of hypermetabolism are identified. IMPRESSION: 1. Improved appearance to the neck since prior PET/CT from 10/14/2018. Previously noted hypermetabolism involving the patient's primary right tonsillar neoplasm is no longer visualized. Right-sided level II and level III lymph node hypermetabolism has also resolved and no longer visualized. 2. There has been increase in size of a circumscribed pulmonary nodule in the left lower lobe now measuring 12 mm compared with [address] chest from one month earlier, indeterminate. Metastatic nodule cannot be entirely excluded. This does not demonstrate hypermetabolic activity. This nodule would be too small to percutaneously biopsy. Dictated by: Dictated on workstation # [id number]
== END ==
LOC: RAD 08:14
DX: R59.1 Generalized enlarged lymph nodes (principal); Z92.3 Personal history of irradiation; Z92.21 Personal history of antineoplastic chemotherapy; Z85.818 Personal history of malignant neoplasm of other sites of lip, oral cavity, and pharynx

== ENCOUNTER 2019-05-13 09:00 | Outpatient (RCR) | payer MEDICARE ==
[2019-05-13 09:12] LABS: BASOPHILS % (AUTO) 0 % (0-10); EOSINOPHILS # (AUTO) 0.1 10^3/uL (0.0-0.3); EOSINOPHILS % (AUTO) 1 % (0-10); HEMATOCRIT 39 % (40-54); HEMOGLOBIN 13.9 G/DL (13.3-17.7); LYMPHOCYTES # (AUTO) 0.8 X 10^3 (1.0-4.0); LYMPHOCYTES % (AUTO) 13 % (12-44); MEAN CORPUSCULAR HEMOGLOBIN 36 PG (25-34); MEAN CORPUSCULAR HGB CONC 35 G/DL (32-36); MEAN CORPUSCULAR VOLUME 102 FL (80-99); MEAN PLATELET VOLUME 10.2 FL (7.4-10.4); MONOCYTES # (AUTO) 0.8 X 10^3 (0.0-1.0); MONOCYTES % (AUTO) 14 % (0-12); NEUTROPHILS # (AUTO) 4.1 X 10^3 (1.8-7.8); NEUTROPHILS % (AUTO) 71 % (42-75); PLATELET COUNT 127 10^3/uL (130-400); RED CELL DISTRIBUTION WIDTH 12.9 % (10.0-14.5); WHITE BLOOD COUNT 5.7 10^3/uL (4.3-11.0)
[2019-05-13 09:39] LABS: ALANINE AMINOTRANSFERASE 45 U/L (0-55); ALBUMIN 3.8 GM/DL (3.2-4.5); ALKALINE PHOSPHATASE 49 U/L (40-136); BILIRUBIN,TOTAL 0.6 MG/DL (0.1-1.0); BUN/CREATININE RATIO 15; CALCIUM 9.2 MG/DL (8.5-10.1); CARBON DIOXIDE 23 MMOL/L (21-32); CHLORIDE 102 MMOL/L (98-107); CREATININE SERUM 0.65 MG/DL (0.60-1.30); GFR ESTIMATED > 60; GLUCOSE 102 MG/DL (70-105); SODIUM 133 MMOL/L (135-145); TOTAL PROTEIN 6.7 GM/DL (6.4-8.2)
== END 2019-08-11 | disposition home or self-care (01) ==
LOC: ONC 09:00
PROVIDERS: ATTEND Internal Medicine Hematology & Oncology
DX: C09.9 Malignant neoplasm of tonsil, unspecified (principal); I42.9 Cardiomyopathy, unspecified; I50.9 Heart failure, unspecified; I25.10 Atherosclerotic heart disease of native coronary artery without angina pectoris; J44.9 Chronic obstructive pulmonary disease, unspecified; K86.0 Alcohol-induced chronic pancreatitis; Z95.0 Presence of cardiac pacemaker
CPT/HCPCS: 36415; 36591; 80053; 85025

== ENCOUNTER → 2019-06-23 | Outpatient (CLI) | payer MEDICARE ==
[~2019-06-23] MED LIST changes: +HOLD METFORMIN - RECEIVED CONTRAST 20 ML VIAL IV SCH; +IOHEXOL 350 MG/ML 100 ML (OMNIPAQUE 350) VIAL IV ONE; +NS 100 ML (IVPB) BAG IV ONE
[2019-06-23 08:13] LABS: BUN/CREATININE RATIO 20; CREATININE SERUM 0.69 MG/DL (0.60-1.30); GFR ESTIMATED > 60
--- NOTE | 2019-06-23 10:16 | Diagnostic Imaging Report ---
EXAMINATION: CT Chest with intravenous contrast. TECHNIQUE: Multiple contiguous axial images were obtained through the chest after the uneventful administration of intravenous contrast. All CT scans use one or more of the following dose optimizing techniques: automated exposure control, MA and/or KvP adjustment based on a patient size and exam type, or iterative reconstruction. HISTORY: Tonsillar cancer. COMPARISON: 02/13/2019 FINDINGS: The lungs are clear without edema or pneumonia. No pleural effusion or pneumothorax. Left lower lobe nodule measures 2.0 cm, previously 0.6 cm. There is bibasilar atelectasis. There is moderate emphysema. Right anterior subclavian port catheter is present. Pacemaker leads are noted. There are moderate coronary artery calcifications. The left ventricle is dilated. No pericardial effusion. Aorta is normal in caliber. There is no axillary or supraclavicular lymphadenopathy. There is no mediastinal lymphadenopathy. Calcifications in the pancreatic head may be related to chronic pancreatitis. Multiple renal cysts are seen. Gastrostomy tube is present. Lytic lesion in the right humeral head is unchanged. IMPRESSION: 1. Increase in size of left lower lobe pulmonary nodule now measuring 2.0 cm, previously 0.6 cm. Dictated by: Dictated on workstation # [id number]
== END ==
LOC: RAD 07:45
PROVIDERS: ATTEND Otolaryngology Plastic Surgery within the Head & Neck
DX: R91.1 Solitary pulmonary nodule (principal); Z85.818 Personal history of malignant neoplasm of other sites of lip, oral cavity, and pharynx
CPT/HCPCS: 36415; 71260; 82565; 84520

== ENCOUNTER → 2019-09-18 | Outpatient (CLI) | payer MEDICARE ==
[~2019-09-18] MED LIST changes: +CATHETER FLUSH 10 ML SYR IV PRN; +DILT240C92 PO; -DILT240C97 PO; +FEN12TD TD; -FENT1PAT6 TD
--- NOTE | 2019-09-18 09:05 | Diagnostic Imaging Report ---
PROCEDURE: CT neck soft tissue with contrast. TECHNIQUE: Multiple contiguous axial images were obtained through the neck after the administration of contrast. Auto Exposure Controls were utilized during the CT exam to meet ALARA standards for radiation dose reduction. INDICATION: Lump on the right side of the neck for one month. History of throat cancer. COMPARISON: CT chest on 06/23/2019. CT neck and chest on 02/13/2019. PET/CT on 03/24/2019. FINDINGS: Stable appearance of the treated mass within the right tonsillar bed without appreciable abnormal enhancement or mass effect. No new soft tissue masses are seen in the neck. The previously visualized lymphadenopathy in the right level 2 and level 3 stations have been improved appearance with the right level 2 lymph node measuring 1.9 x 0.7 cm, previously measuring 2.7 x 0.7 cm. The level 3 cervical lymph node on the right measures 0.8 x 0.4 cm, previously measuring 0.8 x 0.9 cm. No new suspicious lymphadenopathy is seen in the neck. There is no displacement of the parapharyngeal fat planes. There is no abnormal process evident within the prevertebral or retropharyngeal space. The vocal folds appear symmetric. There is asymmetric prominence of the right submandibular gland relative to the left with dilation of the right submandibular duct. No evidence of sialolithiasis is seen. No significant inflammatory changes or hyperemia is seen in the submandibular glands. The parotid glands and thyroid glands demonstrate no acute abnormalities. The vascular structures the neck demonstrate no evidence of high-grade stenosis on this nondedicated exam. A right port is noted. Centrilobular emphysema is seen in the lung apices without focal consolidation or mass. The visualized intracranial contents demonstrate no evidence of pathologic intracranial enhancement or intracranial mass effect. Visualized orbital contents are unremarkable. The visualized paranasal sinuses are clear. The mastoids and middle ears are clear. No acute osseous abnormality in the cervical spine. Degenerative changes are present in the cervical spine. IMPRESSION: 1. Asymmetric prominence of the right submandibular gland with dilation of the right submandibular duct. No CT evidence of sialolithiasis or sialadenitis. This may possibly represent posttreatment changes. Recommend correlation with physical exam and patient's symptoms. 2. Stable posttreatment changes in the right tonsillar bed with no appreciable residual enhancing mass. Continued improvement in right cervical lymphadenopathy. No new lymphadenopathy in the neck. Recommend continued follow-up as indicated. 3. Centrilobular emphysema in the lung apices. Dictated by: Dictated on workstation # [id number]
== END ==
LOC: RAD FS 08:04
PROVIDERS: ATTEND Family Medicine
DX: J43.2 Centrilobular emphysema (principal); R22.1 Localized swelling, mass and lump, neck; Z85.818 Personal history of malignant neoplasm of other sites of lip, oral cavity, and pharynx
CPT/HCPCS: 70491

== ENCOUNTER → 2019-09-25 | Outpatient (CLI) | payer MEDICARE ==
[~2019-09-25] MED LIST changes: -CATHETER FLUSH 10 ML SYR IV PRN; -HOLD METFORMIN - RECEIVED CONTRAST 20 ML VIAL IV SCH; -NS 100 ML (IVPB) BAG IV ONE
--- NOTE | 2019-09-25 08:20 | Diagnostic Imaging Report ---
EXAMINATION: CT Chest with intravenous contrast. TECHNIQUE: Multiple contiguous axial images were obtained through the chest after the uneventful administration of intravenous contrast. All CT scans use one or more of the following dose optimizing techniques: automated exposure control, MA and/or KvP adjustment based on a patient size and exam type, or iterative reconstruction. HISTORY: MALIGNANT NEOPLASM OF TONSIL COMPARISON: 06/23/2019 FINDINGS: There is no edema or pneumonia. No pleural effusion. No pneumothorax. The left lower lobe pulmonary nodule continues to increase in size measuring 2.8 cm, previously 2.0 cm. There is mild bibasilar atelectasis. There is a new right middle lobe nodule measuring 14 mm. Heart size is normal. There are moderate coronary artery calcifications. No pericardial effusion. Aorta is normal in caliber. There is no axillary or supraclavicular lymphadenopathy. There is no mediastinal lymphadenopathy. Right port catheter tip terminates in the superior vena cava. Left subclavian pacemaker is present. Limited views of the upper abdomen show pancreatic calcifications consistent with chronic pancreatitis. Cysts are present in the kidneys. Lytic lesion in the right humeral head is unchanged. IMPRESSION: 1. Left lower lobe pulmonary nodule continues to increase in size measuring 2.8 cm, previously 2.0 cm. 2. There is a new right middle lobe nodule measuring 14 mm. Dictated by: Dictated on workstation # [id number]
== END ==
LOC: RAD 07:33
PROVIDERS: ATTEND Internal Medicine Hematology & Oncology
DX: C09.9 Malignant neoplasm of tonsil, unspecified (principal); R91.8 Other nonspecific abnormal finding of lung field; Z72.0 Tobacco use
CPT/HCPCS: 71260

== ENCOUNTER → 2019-09-25 | Outpatient (CLI) | payer MEDICARE ==
[~2019-09-25] MED LIST changes: +HOLD METFORMIN - RECEIVED CONTRAST 20 ML VIAL IV SCH; +NS 100 ML (IVPB) BAG IV ONE
[2019-09-25 08:08] LABS: BUN/CREATININE RATIO 13; CALCIUM 9.2 MG/DL (8.5-10.1); CARBON DIOXIDE 25 MMOL/L (21-32); CHLORIDE 109 MMOL/L (98-107); CREATININE SERUM 0.71 MG/DL (0.60-1.30); GFR ESTIMATED > 60; GLUCOSE 103 MG/DL (70-105); MAGNESIUM 1.9 MG/DL (1.6-2.4); SODIUM 139 MMOL/L (135-145)
== END ==
LOC: LAB 07:34
PROVIDERS: ATTEND Nurse Practitioner Family
DX: E87.6 Hypokalemia (principal); I25.10 Atherosclerotic heart disease of native coronary artery without angina pectoris; I42.9 Cardiomyopathy, unspecified; I50.22 Chronic systolic (congestive) heart failure; I48.0 Paroxysmal atrial fibrillation; I70.213 Atherosclerosis of native arteries of extremities with intermittent claudication, bilateral legs
CPT/HCPCS: 36415; 80048; 83735

== ENCOUNTER → 2019-10-07 | Outpatient (CLI) | payer MEDICARE ==
[~2019-10-07] MED LIST changes: -HOLD METFORMIN - RECEIVED CONTRAST 20 ML VIAL IV SCH; -IOHEXOL 350 MG/ML 100 ML (OMNIPAQUE 350) VIAL IV ONE; -NS 100 ML (IVPB) BAG IV ONE; +ONDA-105 PO; -ONDA4TAB10 PO
== END ==
LOC: CARD 11:42
PROVIDERS: ATTEND Nurse Practitioner Family
DX: I08.1 Rheumatic disorders of both mitral and tricuspid valves (principal); I51.89 Other ill-defined heart diseases; E87.6 Hypokalemia; I25.10 Atherosclerotic heart disease of native coronary artery without angina pectoris; I42.9 Cardiomyopathy, unspecified; I50.22 Chronic systolic (congestive) heart failure; I48.0 Paroxysmal atrial fibrillation; I70.213 Atherosclerosis of native arteries of extremities with intermittent claudication, bilateral legs
CPT/HCPCS: 93306

== ENCOUNTER 2019-10-15 08:32 | Outpatient (CLI) | payer MEDICARE ==
[~2019-10-15] VITALS: Ht 165 cm; Wt 63.6 kg
[2019-10-15] VITALS (12 sets, daily range): BP systolic 102–123; BP diastolic 60–86
[~2019-10-15 08:32] MED LIST changes: -HYDR-3812 PO
[2019-10-15] MEDS ORDERED: NS IV 1000 ML 1,000 ML IV STA (08:36)
[2019-10-15] MEDS ORDERED: fentaNYL INJECTION 100 MCG/2 ML AMP IVP ONE (08:45)
[2019-10-15] MEDS ORDERED: MIDAZOLAM 2 MG/2 ML (VERSED) VIAL IVP ONE (08:45)
[2019-10-15] MEDS ORDERED: LIDOCAINE 1% INJ 20 ML 20 ML VIAL INJ ONE (08:45)
[2019-10-15 09:10] LABS: HEMOGLOBIN 13.6 G/DL (13.3-17.7); MEAN PLATELET VOLUME 9.9 FL (7.4-10.4); RED CELL DISTRIBUTION WIDTH 12.8 % (10.0-14.5); WHITE BLOOD COUNT 7.4 10^3/uL (4.3-11.0)
[2019-10-15 09:26] LABS: PROTHROMBIN TIME PATIENT 13.8 SEC (12.2-14.7)
[2019-10-15] MEDS ORDERED: HYDROcodone/APAP 5 MG/325 MG (LORTAB) TAB PO PRN (11:15)
--- NOTE | 2019-10-15 11:26 | Diagnostic Imaging Report ---
INDICATION: Left lung mass. Patient presents for CT-guided biopsy. TECHNIQUE: All CT scans use one or more of the following dose optimizing techniques: automated exposure control, MA and/or KvP adjustment based on a patient size and exam type, or iterative reconstruction. Patient is brought to the CT suite and placed on the table in the [id number] decubitus position. Axial imaging through the chest was performed to evaluate appropriate entry site. Procedure was performed utilizing conscious sedation with radiology nursing and constant patient monitoring. Patient was administered a total of 50 mcg of fentanyl intravenously and 1 mg of Versed intravenously. Total procedure time is 9 minutes. Left lateral lower chest was prepped and draped in the usual sterile fashion. Small amount of 1% lidocaine was utilized for local anesthesia. A 20-gauge coaxial Bard needle was advanced and placed with its tip along the margin of the left lower lobe lesion. Three core biopsies were obtained. The needle was then repositioned and placed slightly more posteriorly within the lesion and three additional core biopsies were obtained. Needle was withdrawn and hemostasis was obtained. Follow-up imaging does show a small left basilar pneumothorax. No significant perilesional hemorrhage is identified. Patient tolerated the procedure well. IMPRESSION: Successful CT-guided core biopsy of the left lower lobe lung mass, utilizing conscious sedation. Pathology results are currently pending. Dictated by: Dictated on workstation # [id number]
--- NOTE | 2019-10-15 13:11 | Diagnostic Imaging Report ---
INDICATION: Left lung mass, status post biopsy. TIME OF EXAM: 12:34 p.m. COMPARISON: Correlation is made with prior chest from 12/23/2018. FINDINGS: There is a very small left apical pneumothorax. Cardiac defibrillator remains in place. There is a right chest wall port with tip overlying the SVC. Left basilar lung mass is again noted and corresponds to a lesion that was recently biopsied. IMPRESSION: Small left apical pneumothorax, status post left lower lobe mass biopsy. Dictated by: Dictated on workstation # [id number]
--- NOTE | 2019-10-15 13:40 | NUR ---
PORT FLUSHED WELL, THEN DEACCESSED. DISCHARGE INSTRUCTIONS GIVEN, THEN DISCHARGED AMBULATORY, DOWNSTAIRS TO MEET HIS MOM WHO IS GOING TO DRIVE HIM HOME. PAIN FREE, SPEECH CLEAR, AMBULATES WITH NO DIFFICULTY. CLEAN DRY DRESSING ON LEFT MID BACK
--- NOTE | 2019-10-15 16:11 | Pre-Op Note & Conscious Sedat ---
Pre-Operative Progress Note H&P Reviewed The H&P was reviewed, patient examined and no changes noted. Date H&P Reviewed: Oct 15, 2019 Time H&P Reviewed: 09:00 Pre-Op Diagnosis: Lung mass Conscious Sedation Pre-Proced Time 09:00 ASA Score 2 For ASA 3 and 4: Consider anesthesia and medical clearance. Also, for patients with a history of failed moderate sedation consider anesthesia. Airway Lungs Heart ASA score ASA 1: a normal healthy patient ASA 2: a patient with a mild systemic disease (mid diabetes, controlled hypertension, obesity ASA 3: a patient with a severe systemic disease that limits activity (angina, COPD, prior Myocardial infarction) ASA 4: a patient with an incapacitating disease that is a constant threat to life (CHF, renal failure) ASA 5: a moribund patient not expected to survive 24 hrs. (ruptured aneurysm) ASA 6: a declared brain- patient whose organs are being harvested. For emergent operations, add the letter E after the classification Mallampati Classification Grade 2 Sedation Plan Analgesia, Amnesia, Plan communicated to team members, Discussed options with patient/fam, Discussed risks with patient/fam The patient is an appropriate candidate to undergo the planned procedure, sedation, and anesthesia. The patient immediately re-assessed prior to indication. JLUIS PETERSON MD Oct 15, 2019 16:11
== END 2019-10-15 13:35 | disposition home or self-care (01) ==
LOC: SDC 08:32
PROVIDERS: ATTEND Internal Medicine Hematology & Oncology
DX: C34.92 Malignant neoplasm of unspecified part of left bronchus or lung (principal)
CPT/HCPCS: 36415; 71045; 77012; 85027; 85610; 85730; 99156

== ENCOUNTER → 2019-10-20 | Outpatient (CLI) | payer MEDICARE ==
[~2019-10-20] VITALS: Ht 170 cm; Wt 64.0 kg
[~2019-10-20] MED LIST changes: +CATHETER FLUSH 10 ML SYR IV PRN; +REGADENOSON 0.4 MG/5 ML SYR (LEXISCAN) IV ONE
[2019-10-20 09:17] VITALS: BP 121/77
--- NOTE | 2019-10-20 18:35 | STRESS TEST ---
DATE OF SERVICE: 10/20/2019 RESTING AND POST REGADENOSON TECHNETIUM-99M TETROFOSMIN SPECT CT IMAGING ORDERING PHYSICIAN: Mita Samuels APRN PRIMARY PHYSICIAN: Dr. Acosta. CLINICAL DIAGNOSES: Coronary artery disease, cardiomyopathy. Baseline images were carried out after injection of 10.66 mCi of technetium-99m Tetrofosmin. This was followed by 0.4 mg regadenoson and 28.7 mCi of technetium-99m Tetrofosmin for stress imaging. The electrocardiogram showed sinus rhythm with a paced ventricular rhythm throughout the study. The patient described some nausea following regadenoson infusion, which resolved in a few minutes. Review of images at rest and following stress shows considerable cardiomegaly. There is a fixed perfusion defect in the basal inferior wall. Gated images show global hypokinesis. There is basal inferior akinesis. Left ventricular ejection fraction is calculated to be 20%. Left ventricular end diastolic volume is 208 mL. TID is absent (1.08). CONCLUSIONS: 1. Significant cardiomegaly with global hypokinesis and basal inferior akinesis and left ventricular ejection fraction 20%. 2. This study suggests basal inferior infarction without significant ischemia. Job ID: [id number] DocumentID: [id number] Dictated Date: 10/20/2019 16:15:39 [employer] Administrator Date: 10/20/2019 18:34:44 Dictated By: VANITA BERGMAN MD, MA, FACP, FACC,
== END ==
LOC: CARD 07:17
PROVIDERS: ATTEND Nurse Practitioner Family
DX: I25.10 Atherosclerotic heart disease of native coronary artery without angina pectoris (principal); E87.6 Hypokalemia; I42.0 Dilated cardiomyopathy; I50.22 Chronic systolic (congestive) heart failure; I48.0 Paroxysmal atrial fibrillation; I70.213 Atherosclerosis of native arteries of extremities with intermittent claudication, bilateral legs
CPT/HCPCS: 78452; 93017

== ENCOUNTER → 2019-11-03 | Outpatient (CLI) | payer MEDICARE ==
[~2019-11-03] MED LIST changes: -CATHETER FLUSH 10 ML SYR IV PRN; -REGADENOSON 0.4 MG/5 ML SYR (LEXISCAN) IV ONE
--- NOTE | 2019-11-03 13:24 | Diagnostic Imaging Report ---
INDICATION: Squamous cell carcinoma of the left lung, initial staging. Patient also has a history of right tonsillar carcinoma. TECHNIQUE: The serum blood glucose level at the time of injection was 82 mg/dL. The patient was administered 11.9 mCi of F-18 FDG intravenously in the right antecubital location and PET imaging from the top of the skull to the mid thighs was performed. A noncontrast CT was also performed for attenuation correction and anatomic correlation. COMPARISON: Correlation is made with the prior PET/CT from 03/24/2019. Comparison is also made with the recent CT chest from 09/25/2019. FINDINGS: There is symmetric activity in the brain. The corie and mediastinum are without abnormal hypermetabolism. There is a hypermetabolic mass in the right middle lobe with an SUV max of approximately 9. This mass measures 20 mm compared with [address] chest from 09/25/2019. The hypermetabolic mass in the posterior left lower lobe demonstrates an SUV max of 6.4. This measures 35 mm compared with 31 mm on the prior exam. No other pulmonary parenchymal abnormalities are identified. The abdomen and pelvis demonstrate physiologic activity within the GI and tracts. No suspicious hypermetabolic foci are identified. IMPRESSION: Hypermetabolic masses in the right middle lobe and left lower lobe. No mediastinal or hilar hypermetabolic lesions are seen. In addition, no abnormal uptake in the soft tissues of the neck is identified. Dictated by: Dictated on workstation # [id number]
== END ==
LOC: RAD 09:33
PROVIDERS: ATTEND Internal Medicine Hematology & Oncology
DX: C34.90 Malignant neoplasm of unspecified part of unspecified bronchus or lung (principal); Z85.818 Personal history of malignant neoplasm of other sites of lip, oral cavity, and pharynx

== ENCOUNTER 2019-12-18 08:53 | Outpatient (RCR) | payer MEDICARE ==
[2019-09-23 11:46] LABS: BASOPHILS % (AUTO) 0 % (0-10); EOSINOPHILS # (AUTO) 0.1 10^3/uL (0.0-0.3); EOSINOPHILS % (AUTO) 2 % (0-10); HEMATOCRIT 37 % (40-54); HEMOGLOBIN 12.7 G/DL (13.3-17.7); LYMPHOCYTES # (AUTO) 0.7 X 10^3 (1.0-4.0); LYMPHOCYTES % (AUTO) 12 % (12-44); MEAN CORPUSCULAR HEMOGLOBIN 35 PG (25-34); MEAN CORPUSCULAR HGB CONC 34 G/DL (32-36); MEAN CORPUSCULAR VOLUME 101 FL (80-99); MEAN PLATELET VOLUME 10.1 FL (7.4-10.4); MONOCYTES # (AUTO) 0.9 X 10^3 (0.0-1.0); MONOCYTES % (AUTO) 15 % (0-12); NEUTROPHILS # (AUTO) 4.6 X 10^3 (1.8-7.8); NEUTROPHILS % (AUTO) 72 % (42-75); PLATELET COUNT 171 10^3/uL (130-400); RED CELL DISTRIBUTION WIDTH 13.2 % (10.0-14.5); WHITE BLOOD COUNT 6.4 10^3/uL (4.3-11.0)
[2019-09-23 12:19] LABS: ALANINE AMINOTRANSFERASE 19 U/L (0-55); ALBUMIN 3.8 GM/DL (3.2-4.5); ALKALINE PHOSPHATASE 44 U/L (40-136); BILIRUBIN,TOTAL 0.2 MG/DL (0.1-1.0); BUN/CREATININE RATIO 10; CALCIUM 8.9 MG/DL (8.5-10.1); CARBON DIOXIDE 24 MMOL/L (21-32); CHLORIDE 109 MMOL/L (98-107); CREATININE SERUM 0.72 MG/DL (0.60-1.30); GFR ESTIMATED > 60; GLUCOSE 151 MG/DL (70-105); POTASSIUM 3.3 MMOL/L (3.6-5.0); SODIUM 139 MMOL/L (135-145); TOTAL PROTEIN 6.5 GM/DL (6.4-8.2)
[2019-12-18 09:26] LABS: BASOPHILS % (AUTO) 0 % (0-10); EOSINOPHILS # (AUTO) 0.1 10^3/uL (0.0-0.3); EOSINOPHILS % (AUTO) 1 % (0-10); HEMATOCRIT 39 % (40-54); HEMOGLOBIN 13.3 G/DL (13.3-17.7); LYMPHOCYTES # (AUTO) 1.1 X 10^3 (1.0-4.0); LYMPHOCYTES % (AUTO) 16 % (12-44); MEAN CORPUSCULAR HEMOGLOBIN 34 PG (25-34); MEAN CORPUSCULAR HGB CONC 34 G/DL (32-36); MEAN CORPUSCULAR VOLUME 99 FL (80-99); MEAN PLATELET VOLUME 10.5 FL (7.4-10.4); MONOCYTES % (AUTO) 14 % (0-12); NEUTROPHILS # (AUTO) 4.7 X 10^3 (1.8-7.8); NEUTROPHILS % (AUTO) 68 % (42-75); PLATELET COUNT 141 10^3/uL (130-400); RED CELL DISTRIBUTION WIDTH 15.4 % (10.0-14.5); WHITE BLOOD COUNT 6.9 10^3/uL (4.3-11.0)
[2019-12-18 09:46] LABS: ALANINE AMINOTRANSFERASE 28 U/L (0-55); ALBUMIN 3.6 GM/DL (3.2-4.5); ALKALINE PHOSPHATASE 39 U/L (40-136); BILIRUBIN,TOTAL 0.4 MG/DL (0.1-1.0); BUN/CREATININE RATIO 18; CALCIUM 8.4 MG/DL (8.5-10.1); CARBON DIOXIDE 18 MMOL/L (21-32); CHLORIDE 106 MMOL/L (98-107); CREATININE SERUM 0.65 MG/DL (0.60-1.30); GFR ESTIMATED > 60; GLUCOSE 108 MG/DL (70-105); POTASSIUM 3.9 MMOL/L (3.6-5.0); SODIUM 133 MMOL/L (135-145); TOTAL PROTEIN 6.5 GM/DL (6.4-8.2)
== END 2019-12-22 | disposition home or self-care (01) ==
LOC: ONC 08:53
PROVIDERS: ATTEND Internal Medicine Hematology & Oncology
DX: C09.9 Malignant neoplasm of tonsil, unspecified (principal); I42.9 Cardiomyopathy, unspecified; I50.9 Heart failure, unspecified; I25.10 Atherosclerotic heart disease of native coronary artery without angina pectoris; J44.9 Chronic obstructive pulmonary disease, unspecified; K86.0 Alcohol-induced chronic pancreatitis; Z95.0 Presence of cardiac pacemaker
CPT/HCPCS: 36591; 80053; 85025; 99213

== ENCOUNTER 2020-03-24 08:56 | Outpatient (RCR) | payer MEDICARE ==
[2020-03-24 09:30] LABS: BASOPHILS % (AUTO) 0 % (0-10); EOSINOPHILS # (AUTO) 0.1 10^3/uL (0.0-0.3); EOSINOPHILS % (AUTO) 2 % (0-10); HEMATOCRIT 41 % (40-54); LYMPHOCYTES # (AUTO) 1.1 X 10^3 (1.0-4.0); LYMPHOCYTES % (AUTO) 15 % (12-44); MEAN CORPUSCULAR HEMOGLOBIN 34 PG (25-34); MEAN CORPUSCULAR HGB CONC 35 G/DL (32-36); MEAN CORPUSCULAR VOLUME 99 FL (80-99); MONOCYTES % (AUTO) 14 % (0-12); NEUTROPHILS % (AUTO) 70 % (42-75); PLATELET COUNT 167 10^3/uL (130-400); WHITE BLOOD COUNT 7.2 10^3/uL (4.3-11.0)
[2020-03-24 09:51] LABS: ALANINE AMINOTRANSFERASE 30 U/L (0-55); ALBUMIN 3.6 GM/DL (3.2-4.5); ALKALINE PHOSPHATASE 48 U/L (40-136); BILIRUBIN,TOTAL 0.3 MG/DL (0.1-1.0); BUN/CREATININE RATIO 22; CALCIUM 8.8 MG/DL (8.5-10.1); CARBON DIOXIDE 22 MMOL/L (21-32); CHLORIDE 108 MMOL/L (98-107); CREATININE SERUM 0.73 MG/DL (0.60-1.30); GFR ESTIMATED > 60; GLUCOSE 111 MG/DL (70-105); POTASSIUM 4.2 MMOL/L (3.6-5.0); SODIUM 138 MMOL/L (135-145)
== END 2020-05-06 08:25 | disposition home or self-care (01) ==
LOC: ONC 08:56
PROVIDERS: ATTEND Internal Medicine Hematology & Oncology
DX: E87.6 Hypokalemia (principal); I25.10 Atherosclerotic heart disease of native coronary artery without angina pectoris; I42.0 Dilated cardiomyopathy; I50.22 Chronic systolic (congestive) heart failure; I48.0 Paroxysmal atrial fibrillation; I70.213 Atherosclerosis of native arteries of extremities with intermittent claudication, bilateral legs
CPT/HCPCS: 80053; 85025; G0463; 36591

== ENCOUNTER → 2020-07-01 | Outpatient (CLI) | payer MEDICARE, OTHER ==
[2020-07-01 09:54] LABS: BASOPHILS % (AUTO) 0 % (0-10); EOSINOPHILS # (AUTO) 0.1 10^3/uL (0.0-0.3); EOSINOPHILS % (AUTO) 1 % (0-10); HEMATOCRIT 39 % (40-54); HEMOGLOBIN 12.9 g/dL (13.3-17.7); LYMPHOCYTES # (AUTO) 1.2 10^3/uL (1.0-4.0); LYMPHOCYTES % (AUTO) 15 % (12-44); MEAN CORPUSCULAR HEMOGLOBIN 32 pg (25-34); MEAN CORPUSCULAR HGB CONC 33 g/dL (32-36); MEAN CORPUSCULAR VOLUME 99 fL (80-99); MEAN PLATELET VOLUME 10.9 fL (9.0-12.2); MONOCYTES % (AUTO) 12 % (0-12); NEUTROPHILS # (AUTO) 5.6 10^3/uL (1.8-7.8); NEUTROPHILS % (AUTO) 71 % (42-75); PLATELET COUNT 202 10^3/uL (130-400); WHITE BLOOD COUNT 7.9 10^3/uL (4.3-11.0)
[2020-07-01 10:11] LABS: ALANINE AMINOTRANSFERASE 26 U/L (0-55); ALKALINE PHOSPHATASE 50 U/L (40-136); BILIRUBIN,TOTAL 0.4 MG/DL (0.1-1.0); BUN/CREATININE RATIO 20; CALCIUM 9.3 MG/DL (8.5-10.1); CARBON DIOXIDE 20 MMOL/L (21-32); CHLORIDE 110 MMOL/L (98-107); CREATININE SERUM 0.76 MG/DL (0.60-1.30); GFR ESTIMATED > 60; GLUCOSE 113 MG/DL (70-105); POTASSIUM 4.2 MMOL/L (3.6-5.0); SODIUM 141 MMOL/L (135-145); TOTAL PROTEIN 7.2 GM/DL (6.4-8.2)
== END ==
LOC: ONC 09:41
PROVIDERS: ATTEND Internal Medicine Hematology & Oncology
DX: C09.9 Malignant neoplasm of tonsil, unspecified (principal); C76.0 Malignant neoplasm of head, face and neck; C78.00 Secondary malignant neoplasm of unspecified lung; D64.9 Anemia, unspecified; I25.10 Atherosclerotic heart disease of native coronary artery without angina pectoris; F17.210 Nicotine dependence, cigarettes, uncomplicated
CPT/HCPCS: 80053; 85025; G0463; 36591

== ENCOUNTER → 2020-07-12 | Outpatient (CLI) | payer MEDICARE, OTHER ==
--- NOTE | 2020-07-12 13:29 | Diagnostic Imaging Report ---
INDICATION: Tonsillar cancer with subsequent treatment strategy and restaging. TECHNIQUE: Serum blood glucose level at the time of injection is 108 mg/dL. Patient was administered a total of 16.2 mCi F-18 FDG intravenously in the right antecubital location and PET imaging was performed from the top of skull to mid thighs. Noncontrast CT was also performed for attenuation correction and anatomic correlation. COMPARISON: Correlation is made with prior PET/CT study from 11/03/2019. FINDINGS: There is symmetric activity throughout the brain. No hypermetabolic activity within soft tissues of the neck are identified. There has been development of a hypermetabolic nodule in the anterior mediastinum measuring approximately 10 mm in size. SUV max is 4.9. In addition, there has been development of hypermetabolic lymph nodes in subcarinal region as well as bilateral hilar regions. SUV max for subcarinal nodule is 6.3. SUV max for right hilar focus is 5.2 and for left hilar focus 5.6. Hypermetabolic mass in right middle lobe is again noted with SUV max of 6.8. This measures 2.9 x 2.9 cm. Hypermetabolic mass in left lower lobe demonstrates SUV max of 7.8. The mass measures 3.7 x 4.4 cm. Physiologic activity throughout the gastrointestinal and genitourinary tracts of the abdomen and pelvis is noted. No other suspicious hypermetabolic foci are identified. IMPRESSION: Development of hypermetabolic lymph nodes within the mediastinum and corie suggestive of metastatic disease. Previously noted masses in the right middle lobe and left lower lobe are again noted and have all increased in size. Dictated by: Dictated on workstation # [id number]
== END ==
LOC: RAD 08:41
PROVIDERS: ATTEND Internal Medicine Hematology & Oncology
DX: C09.9 Malignant neoplasm of tonsil, unspecified (principal)
CPT/HCPCS: 78815; A9552

== ENCOUNTER 2020-07-26 14:22 | Outpatient (RCR) | payer MEDICARE, OTHER ==
[~2020-07-26] VITALS: Ht 172.7 cm; Wt 64.0 kg
[~2020-07-26 14:22] MED LIST changes: +NS IV 1000 ML (CANCER CTR) IV SCH; +PEMBROLIZUMAB 200 MG in NS (IVPB) CANCER CENTER 50 ML IV SCH
[2020-07-26 14:51] LABS: BASOPHILS % (AUTO) 0 % (0-10); EOSINOPHILS # (AUTO) 0.2 10^3/uL (0.0-0.3); EOSINOPHILS % (AUTO) 3 % (0-10); HEMATOCRIT 40 % (40-54); HEMOGLOBIN 13.1 g/dL (13.3-17.7); LYMPHOCYTES # (AUTO) 1.1 10^3/uL (1.0-4.0); LYMPHOCYTES % (AUTO) 17 % (12-44); MEAN CORPUSCULAR HEMOGLOBIN 33 pg (25-34); MEAN CORPUSCULAR HGB CONC 33 g/dL (32-36); MEAN CORPUSCULAR VOLUME 100 fL (80-99); MEAN PLATELET VOLUME 10.9 fL (9.0-12.2); MONOCYTES # (AUTO) 0.9 10^3/uL (0.0-1.0); MONOCYTES % (AUTO) 13 % (0-12); NEUTROPHILS # (AUTO) 4.3 10^3/uL (1.8-7.8); NEUTROPHILS % (AUTO) 66 % (42-75); PLATELET COUNT 168 10^3/uL (130-400); WHITE BLOOD COUNT 6.5 10^3/uL (4.3-11.0)
[2020-07-26 15:26] LABS: ALANINE AMINOTRANSFERASE 30 U/L (0-55); ALKALINE PHOSPHATASE 50 U/L (40-136); BILIRUBIN,TOTAL 0.4 MG/DL (0.1-1.0); BUN/CREATININE RATIO 19; CALCIUM 9.1 MG/DL (8.5-10.1); CARBON DIOXIDE 21 MMOL/L (21-32); CHLORIDE 108 MMOL/L (98-107); CREATININE SERUM 0.74 MG/DL (0.60-1.30); GFR ESTIMATED > 60; GLUCOSE 74 MG/DL (70-105); POTASSIUM 3.9 MMOL/L (3.6-5.0); SODIUM 139 MMOL/L (135-145); TOTAL PROTEIN 7.5 GM/DL (6.4-8.2)
== END 2020-08-11 13:34 | disposition home or self-care (01) ==
LOC: ONC 14:22
PROVIDERS: ATTEND Internal Medicine Hematology & Oncology
DX: C09.9 Malignant neoplasm of tonsil, unspecified (principal); C78.02 Secondary malignant neoplasm of left lung
CPT/HCPCS: 36591; 80053; 84443; 85025; 96413; 99213

== ENCOUNTER 2020-11-08 09:49 | Outpatient (RCR) | payer MEDICARE, OTHER ==
[2020-08-16 09:13] LABS: BASOPHILS % (AUTO) 0 % (0-10); EOSINOPHILS # (AUTO) 0.2 10^3/uL (0.0-0.3); EOSINOPHILS % (AUTO) 2 % (0-10); HEMATOCRIT 38 % (40-54); HEMOGLOBIN 12.8 g/dL (13.3-17.7); LYMPHOCYTES # (AUTO) 1.3 10^3/uL (1.0-4.0); LYMPHOCYTES % (AUTO) 16 % (12-44); MEAN CORPUSCULAR HEMOGLOBIN 33 pg (25-34); MEAN CORPUSCULAR HGB CONC 33 g/dL (32-36); MEAN CORPUSCULAR VOLUME 98 fL (80-99); MEAN PLATELET VOLUME 11.2 fL (9.0-12.2); MONOCYTES # (AUTO) 1.1 10^3/uL (0.0-1.0); MONOCYTES % (AUTO) 13 % (0-12); NEUTROPHILS # (AUTO) 5.3 10^3/uL (1.8-7.8); NEUTROPHILS % (AUTO) 68 % (42-75); PLATELET COUNT 168 10^3/uL (130-400); WHITE BLOOD COUNT 7.9 10^3/uL (4.3-11.0)
[2020-08-16 09:32] LABS: ALANINE AMINOTRANSFERASE 38 U/L (0-55); ALBUMIN 3.9 GM/DL (3.2-4.5); ALKALINE PHOSPHATASE 50 U/L (40-136); BILIRUBIN,TOTAL 0.3 MG/DL (0.1-1.0); BUN/CREATININE RATIO 23; CARBON DIOXIDE 20 MMOL/L (21-32); CHLORIDE 109 MMOL/L (98-107); CREATININE SERUM 0.74 MG/DL (0.60-1.30); GFR ESTIMATED > 60; GLUCOSE 102 MG/DL (70-105); POTASSIUM 4.2 MMOL/L (3.6-5.0); SODIUM 139 MMOL/L (135-145); TOTAL PROTEIN 7.6 GM/DL (6.4-8.2)
[2020-09-06 09:20] LABS: BASOPHILS % (AUTO) 0 % (0-10); EOSINOPHILS # (AUTO) 0.2 10^3/uL (0.0-0.3); EOSINOPHILS % (AUTO) 2 % (0-10); HEMATOCRIT 39 % (40-54); HEMOGLOBIN 12.8 g/dL (13.3-17.7); LYMPHOCYTES # (AUTO) 1.1 10^3/uL (1.0-4.0); LYMPHOCYTES % (AUTO) 16 % (12-44); MEAN CORPUSCULAR HEMOGLOBIN 33 pg (25-34); MEAN CORPUSCULAR HGB CONC 33 g/dL (32-36); MEAN CORPUSCULAR VOLUME 98 fL (80-99); MEAN PLATELET VOLUME 11.1 fL (9.0-12.2); MONOCYTES # (AUTO) 0.9 10^3/uL (0.0-1.0); MONOCYTES % (AUTO) 13 % (0-12); NEUTROPHILS # (AUTO) 4.9 10^3/uL (1.8-7.8); NEUTROPHILS % (AUTO) 69 % (42-75); PLATELET COUNT 162 10^3/uL (130-400); WHITE BLOOD COUNT 7.1 10^3/uL (4.3-11.0)
[2020-09-06 09:46] LABS: ALANINE AMINOTRANSFERASE 27 U/L (0-55); ALBUMIN 3.8 GM/DL (3.2-4.5); ALKALINE PHOSPHATASE 50 U/L (40-136); BILIRUBIN,TOTAL 0.3 MG/DL (0.1-1.0); BUN/CREATININE RATIO 33; CALCIUM 9.2 MG/DL (8.5-10.1); CARBON DIOXIDE 19 MMOL/L (21-32); CHLORIDE 110 MMOL/L (98-107); CREATININE SERUM 0.72 MG/DL (0.60-1.30); GFR ESTIMATED > 60; GLUCOSE 106 MG/DL (70-105); POTASSIUM 4.2 MMOL/L (3.6-5.0); SODIUM 138 MMOL/L (135-145); TOTAL PROTEIN 7.2 GM/DL (6.4-8.2)
[2020-09-27 10:27] LABS: BASOPHILS % (AUTO) 0 % (0-10); EOSINOPHILS # (AUTO) 0.2 10^3/uL (0.0-0.3); EOSINOPHILS % (AUTO) 2 % (0-10); HEMATOCRIT 39 % (40-54); HEMOGLOBIN 13.1 g/dL (13.3-17.7); LYMPHOCYTES # (AUTO) 1.3 10^3/uL (1.0-4.0); LYMPHOCYTES % (AUTO) 16 % (12-44); MEAN CORPUSCULAR HEMOGLOBIN 33 pg (25-34); MEAN CORPUSCULAR HGB CONC 34 g/dL (32-36); MEAN CORPUSCULAR VOLUME 98 fL (80-99); MEAN PLATELET VOLUME 11.4 fL (9.0-12.2); MONOCYTES # (AUTO) 1.1 10^3/uL (0.0-1.0); MONOCYTES % (AUTO) 14 % (0-12); NEUTROPHILS # (AUTO) 5.5 10^3/uL (1.8-7.8); NEUTROPHILS % (AUTO) 67 % (42-75); PLATELET COUNT 179 10^3/uL (130-400); WHITE BLOOD COUNT 8.1 10^3/uL (4.3-11.0)
[2020-09-27 10:51] LABS: ALANINE AMINOTRANSFERASE 30 U/L (0-55); ALBUMIN 3.8 GM/DL (3.2-4.5); ALKALINE PHOSPHATASE 49 U/L (40-136); BILIRUBIN,TOTAL 0.3 MG/DL (0.1-1.0); BUN/CREATININE RATIO 23; CALCIUM 9.2 MG/DL (8.5-10.1); CARBON DIOXIDE 19 MMOL/L (21-32); CHLORIDE 107 MMOL/L (98-107); CREATININE SERUM 0.69 MG/DL (0.60-1.30); GFR ESTIMATED > 60; GLUCOSE 104 MG/DL (70-105); SODIUM 137 MMOL/L (135-145); TOTAL PROTEIN 7.4 GM/DL (6.4-8.2)
[2020-10-18 09:21] LABS: BASOPHILS % (AUTO) 0 % (0-10); EOSINOPHILS # (AUTO) 0.2 10^3/uL (0.0-0.3); EOSINOPHILS % (AUTO) 2 % (0-10); HEMATOCRIT 42 % (40-54); LYMPHOCYTES # (AUTO) 1.3 10^3/uL (1.0-4.0); LYMPHOCYTES % (AUTO) 14 % (12-44); MEAN CORPUSCULAR HEMOGLOBIN 33 pg (25-34); MEAN CORPUSCULAR HGB CONC 34 g/dL (32-36); MEAN CORPUSCULAR VOLUME 98 fL (80-99); MEAN PLATELET VOLUME 10.6 fL (9.0-12.2); MONOCYTES # (AUTO) 1.2 10^3/uL (0.0-1.0); MONOCYTES % (AUTO) 13 % (0-12); NEUTROPHILS # (AUTO) 6.4 10^3/uL (1.8-7.8); NEUTROPHILS % (AUTO) 70 % (42-75); PLATELET COUNT 179 10^3/uL (130-400); WHITE BLOOD COUNT 9.2 10^3/uL (4.3-11.0)
[2020-10-18 09:43] LABS: ALANINE AMINOTRANSFERASE 30 U/L (0-55); ALBUMIN 3.7 GM/DL (3.2-4.5); ALKALINE PHOSPHATASE 52 U/L (40-136); BILIRUBIN,TOTAL 0.4 MG/DL (0.1-1.0); BUN/CREATININE RATIO 19; CARBON DIOXIDE 21 MMOL/L (21-32); CHLORIDE 107 MMOL/L (98-107); CREATININE SERUM 0.75 MG/DL (0.60-1.30); GFR ESTIMATED > 60; GLUCOSE 114 MG/DL (70-105); POTASSIUM 4.4 MMOL/L (3.6-5.0); SODIUM 137 MMOL/L (135-145); TOTAL PROTEIN 7.2 GM/DL (6.4-8.2)
[~2020-11-08 09:49] MED LIST changes: +NS IV 500 ML (CANCER CENTER) 500 ML ONE
[2020-11-08 10:08] LABS: BASOPHILS % (AUTO) 0 % (0-10); EOSINOPHILS # (AUTO) 0.2 10^3/uL (0.0-0.3); EOSINOPHILS % (AUTO) 2 % (0-10); HEMATOCRIT 41 % (40-54); HEMOGLOBIN 13.8 g/dL (13.3-17.7); LYMPHOCYTES # (AUTO) 1.4 10^3/uL (1.0-4.0); LYMPHOCYTES % (AUTO) 15 % (12-44); MEAN CORPUSCULAR HEMOGLOBIN 33 pg (25-34); MEAN CORPUSCULAR HGB CONC 34 g/dL (32-36); MEAN CORPUSCULAR VOLUME 98 fL (80-99); MONOCYTES # (AUTO) 1.2 10^3/uL (0.0-1.0); MONOCYTES % (AUTO) 13 % (0-12); NEUTROPHILS # (AUTO) 6.2 10^3/uL (1.8-7.8); NEUTROPHILS % (AUTO) 69 % (42-75); PLATELET COUNT 172 10^3/uL (130-400)
[2020-11-08 10:28] LABS: ALANINE AMINOTRANSFERASE 20 U/L (0-55); ALBUMIN 3.6 GM/DL (3.2-4.5); ALKALINE PHOSPHATASE 51 U/L (40-136); BILIRUBIN,TOTAL 0.4 MG/DL (0.1-1.0); BUN/CREATININE RATIO 15; CALCIUM 8.9 MG/DL (8.5-10.1); CARBON DIOXIDE 19 MMOL/L (21-32); CHLORIDE 108 MMOL/L (98-107); CREATININE SERUM 0.71 MG/DL (0.60-1.30); GFR ESTIMATED > 60; GLUCOSE 108 MG/DL (70-105); POTASSIUM 4.1 MMOL/L (3.6-5.0); SODIUM 137 MMOL/L (135-145)
== END 2020-11-14 | disposition home or self-care (01) ==
LOC: ONC 09:49
PROVIDERS: ATTEND Internal Medicine Hematology & Oncology
DX: C09.9 Malignant neoplasm of tonsil, unspecified (principal); C78.02 Secondary malignant neoplasm of left lung; F17.210 Nicotine dependence, cigarettes, uncomplicated
CPT/HCPCS: 80053; 85025; 96413; G0463; 36591; 84443

== ENCOUNTER → 2020-11-22 | Outpatient (CLI) | payer MEDICARE, OTHER ==
[~2020-11-22] MED LIST changes: -NS IV 1000 ML (CANCER CTR) IV SCH; -NS IV 500 ML (CANCER CENTER) 500 ML ONE; -PEMBROLIZUMAB 200 MG in NS (IVPB) CANCER CENTER 50 ML IV SCH
--- NOTE | 2020-11-22 14:50 | Diagnostic Imaging Report ---
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 Serum blood glucose level at the time of injection is 88 mg/dL. Patient was administered 12.4 mCi F-18 FDG intravenously in left antecubital location and PET imaging was performed from the top of the skull to mid thighs. Noncontrast CT was also performed for attenuation correction and anatomic correlation. Correlation is made with prior PET/CT study from 07/12/2020. There is symmetric activity throughout the brain. Soft tissues of the neck remain unremarkable. Previously noted small nodule in the anterior mediastinum is again noted and hypermetabolic. There is now a right paratracheal hypermetabolic mass with a SUV max of 7.6. There are some hypermetabolic lymph nodes in the AP window, new on today's study. Bilateral hilar and subcarinal hypermetabolic lymphadenopathy persists. Subcarinal adenopathy SUV max is 10.8. Hypermetabolic mass in the right middle lobe is similar to perhaps slightly increased in size. This remains hypermetabolic with SUV max 11.4. Left lower lobe mass has increased measuring 5.7 cm compared with 4.4 cm. This remains hypermetabolic. Calcifications throughout the pancreas are noted. There is physiologic activity throughout the gastrointestinal and genitourinary tracts of abdomen and pelvis. No suspicious hypermetabolism in the abdomen or pelvis is seen. There is a small focus of uptake in the region of the right femoral neck but no definite CT correlate is identified. IMPRESSION: Enlarging pulmonary masses. There is increasing mediastinal and hilar hypermetabolic lymphadenopathy since prior PET/CT from 07/12/2020. Dictated by: Dictated on workstation # [id number]
== END ==
LOC: RAD 09:45
PROVIDERS: ATTEND Internal Medicine Hematology & Oncology
DX: C09.9 Malignant neoplasm of tonsil, unspecified (principal); C78.02 Secondary malignant neoplasm of left lung
CPT/HCPCS: 78815; A9552

== ENCOUNTER 2020-11-29 08:00 | Day surgery (SDC) | payer MEDICARE, OTHER ==
[~2020-11-29] VITALS: Ht 172 cm; Wt 63.0 kg
[2020-11-29] VITALS (9 sets, daily range): BP systolic 74–127; BP diastolic 62–99
[2020-11-29 07:34] LABS: HEMOGLOBIN 14.4 g/dL (13.3-17.7); WHITE BLOOD COUNT 11.9 10^3/uL (4.3-11.0)
[2020-11-29 07:44] LABS: ALBUMIN 3.8 GM/DL (3.2-4.5); CHLORIDE 107 MMOL/L (98-107); POTASSIUM 4.5 MMOL/L (3.6-5.0); SODIUM 138 MMOL/L (135-145)
[2020-11-29 07:45] LABS: CALCIUM 8.8 MG/DL (8.5-10.1)
[2020-11-29 07:46] LABS: TRIGLYCERIDES 64 MG/DL (<150); VLDL CHOLESTEROL 13 MG/DL (5-40)
[2020-11-29 07:47] LABS: GLUCOSE 113 MG/DL (70-105); TOTAL PROTEIN 7.4 GM/DL (6.4-8.2)
[2020-11-29 07:48] LABS: BILIRUBIN,TOTAL 0.5 MG/DL (0.1-1.0); CARBON DIOXIDE 20 MMOL/L (21-32)
[2020-11-29 07:50] LABS: ALKALINE PHOSPHATASE 49 U/L (40-136); CREATININE SERUM 0.65 MG/DL (0.60-1.30); GFR ESTIMATED > 60
[2020-11-29 07:51] LABS: CHOLESTEROL 133 MG/DL (< 200)
[2020-11-29 07:52] LABS: BUN/CREATININE RATIO 20; HDL CHOLESTEROL 49 MG/DL (40-60)
[2020-11-29 07:53] LABS: ALANINE AMINOTRANSFERASE 23 U/L (0-55); INR 1.1 (0.8-1.4); PROTHROMBIN TIME PATIENT 14.2 SEC (12.2-14.7)
[~2020-11-29 08:00] MED LIST changes: +DILT120C53 PO; +HEParin (CATH LAB) 2,000 ML IV ONE; +LIDOCAINE 1% INJ 20 ML 20 ML VIAL ONE; +NS IV 1000 ML 1,000 ML IV SCH; +NS IV 1000 ML 1,000 ML ONE; +POTASSIUM PO
[2020-11-29] MEDS ORDERED: fentaNYL INJ 100 MCG/2 ML AMP ONE ×2 (08:27→09:04)
[2020-11-29] MEDS ORDERED: MIDAZOLAM 5 MG/5 ML (VERSED) VIAL ONE (08:27)
[2020-11-29] MEDS ORDERED: HEParin 1000 UNIT/ML (10ML VIAL) FOR BOLUS ONE (09:05)
[2020-11-29] MEDS ORDERED: CLOPIDOGREL 300 MG (PLAVIX) TABLET PO ONE (09:47)
[2020-11-29] MEDS ORDERED: ASPIRIN 325 MG (5 GR) TABLET ONE (09:47)
--- NOTE | 2020-11-29 10:19 | Cardiac Procedure Note-CS/ASA ---
Pre-Procedure Note Pre-Op Procedure Note H&P Reviewed The H&P was reviewed, patient examined and no changes noted. Date H&P Reviewed: Nov 29, 2020 Time H&P Reviewed: 08:35 Conscious Sedation Pre-Proced Time 08:35 ASA Score 3 For ASA 3 and 4: Consider anesthesia and medical clearance. Also, for patients with a history of failed moderate sedation consider anesthesia. Airway Lungs Heart ASA score ASA 1: a normal healthy patient ASA 2: a patient with a mild systemic disease (mid diabetes, controlled hypertension, obesity ASA 3: a patient with a severe systemic disease that limits activity (angina, COPD, prior Myocardial infarction) ASA 4: a patient with an incapacitating disease that is a constant threat to life (CHF, renal failure) ASA 5: a moribund patient not expected to survive 24 hrs. (ruptured aneurysm) ASA 6: a declared brain- patient whose organs are being harvested. For emergent operations, add the letter E after the classification Mallampati Classification Grade 2 Sedation Plan Analgesia, Amnesia, Plan communicated to team members, Discussed options with patient/fam, Discussed risks with patient/fam The patient is an appropriate candidate to undergo the planned procedure, sedation, and anesthesia. The patient immediately re-assessed prior to indication. VANITA BERGMAN MD FACP FAC [facility] Nov 29, 2020 10:19
[2020-11-29] MEDS ORDERED: CLOP75TA69 PO (10:27)
--- NOTE | 2020-11-29 10:29 | Discharge Inst-Post CATH ---
Discharge Inst-CATH/EP Post Cardiac Cath/EP D/C Inst Follow Up/Plan F/u with Dr Gregorio next week Be compliant with all meds, including the newly-added Plavix ACTIVITY * Go Home directly and rest. * Limit activity of the leg (or wrist if it was used) for 7 days including aerobics, swimming, jogging, bicycling, etc. * Restrict stair-climbing for 7 days if possible, if not, climb up with your non-cath leg, then bring together on the same step. * Avoid lifting, pushing, pulling or excessive movement of the affected extremity for 7 days. * Customary sexual activity may be resumed after 2 days-use caution not to use a position that strains or causes pain to the affected extremity. * No driving for 24 hours. * NO SMOKING. * Avoid straining for bowel movements for 7 days. * Gentle walking on level ground is allowed. * Returning to work will depend on the type of procedure and the results. Your doctor will discuss this with you. CALL YOUR DOCTOR FOR ANY OF THE FOLLOWING: *If bleeding from the puncture site occurs- Apply gentle pressure to site with clean cloth and call your doctor or EMS. * If a knot or lump forms under the skin, increases in size, or causes pain. * If bruising appears to be worsening or moving further down your leg instead of disappearing. * Temperature above 101 F. CARE OF YOUR GROIN INCISION; * Bruising or purple discoloration of the skin near the puncture site is common. * You may shower only, no bathtub bathing for 5 days. Be careful to avoid slipping as your leg may feel stiff. * If a closure device was used on your femoral artery, please see the attached guide regarding care of the device and your leg. * Leave dressing on FOR 24 hours. CARE OF YOUR WRIST INCISION; * Bruising or purple discoloration of the skin near the puncture site is common. * You may shower. * DO NOT submerge wrist. * Leave dressing on FOR 24 hours. VANITA GREGORIO MD FACP [facility]S Nov 29, 2020 10:29
--- NOTE | 2020-11-29 10:29 | Discharge Inst-Cardiology ---
Discharge Inst-Cardiac Discharge Medications New Medications: Clopidogrel Bisulfate (Plavix) 75 Mg Tablet 75 MG PO DAILY, #90 TAB 3 Refills Continued Medications: Apixaban (Eliquis) 2.5 Mg Tablet 2.5 MG PO BID for 14 Days, #28 TAB Carvedilol (Carvedilol) 12.5 Mg Tablet 12.5 MG PO BID, TAB LAST FILLED #180 08-27-18 Diltiazem HCl (Cartia Xt) 120 Mg Cap.er.24h 120 MG PO DAILY, CAP Furosemide (Furosemide) 40 Mg Tablet 80 MG PO DAILY, TAB TAKES 2 (40MG) TABLETS Lisinopril (Lisinopril) 2.5 Mg Tablet 2.5 MG PO DAILY, TAB LAST FILLED #90 08-27-18 [Potassium] () 20 MG PO PRN VANITA BERGMAN MD FACP [facility]S Nov 29, 2020 10:29
[2020-11-29] MEDS ORDERED: morphine INJ 4 MG/ML 1 ML (VIAL/SYRINGE) IVP PRN (10:30)
[2020-11-29] MEDS ORDERED: PATIENT MAY USE OWN MEDS, ALL PO SCH (10:30)
[2020-11-29] MEDS ORDERED: NS IV 1000 ML 1,000 ML IV SCH (10:30)
--- NOTE | 2020-11-29 12:14 | OPERATIVE REPORT ---
DATE OF SERVICE: 11/29/2020 PERIPHERAL ANGIOGRAPHY AND INTERVENTION REPORT INDICATION FOR PROCEDURE: The patient is a 60-year-old man with bilateral leg claudication and left arm claudication. The symptoms have been progressive and are quite severe. Peripheral angiography was carried out today. An informed consent was obtained for angiography of the circulation of the left arm and of the abdominal aorta and both legs. Informed consent was obtained for ad hoc intervention, if necessary. DESCRIPTION OF PROCEDURE: He was brought to the cardiac catheterization laboratory in a fasting state. The right groin was prepared and draped in the usual sterile fashion. Lidocaine 1% was used for local anesthesia. Modified Seldinger technique was used to advance a 5-Jamaican sheath in the right femoral artery. We first carried out aortic arch angiography using a pigtail catheter. There is an indicated disease in the left subclavian, but the subclavian was not adequately opacified from the aortic arch injection. Accordingly, we selectively engaged it with a 6-Jamaican JR4 guide catheter after the sheath had been exchanged over a wire for a 6-Jamaican sheath. We performed selective angiography of the left subclavian, which indicated severe proximal disease of the left subclavian (approximately 95% to 99% stenosis). Subsequently, we proceeded with the percutaneous intervention to the left subclavian that is described below. PERCUTANEOUS INTERVENTION TO THE LEFT SUBCLAVIAN ARTERY: We advanced a Storq wire across the lesion using a 6-Jamaican JR4 guide. We were not able to advance our angioplasty equipment because of the small caliber of the guide catheter. We kept the wire in place and removed the guide catheter and the short sheath and then advanced a long 6-Jamaican sheath with its tip placed at the ostium of the left subclavian. We kept the wire in position and we were then able to carry out balloon angioplasty with Naubinway 35 balloon (4 x 20 mm). This reduced the lesion from up to 99% to approximately 70%. We then stented the lesion with Omnilink 6.0 x 29 mm stent. This resulted in complete resolution of the stenosis and the antegrade flow in the left subclavian artery was normal. We then pulled the sheath back to the abdominal aortic level and used a 5-Jamaican pigtail catheter to carry out abdominal aortic angiography. We then pulled the sheath and the pigtail catheter to just above the level of aortoiliac bifurcation and performed bilateral leg artery angiography with runoff down to the level of the ankles. We then removed the pigtail catheter and replaced long sheath with a 6-Jamaican short sheath. We carried out angiography of the right femoral artery through the sheath and used Mynx to achieve hemostasis. He tolerated the procedure well. AORTIC ARCH ANGIOGRAPHY: Aortic arch angiography indicated aortic arch calcification. The right brachiocephalic trunk is intact and does not indicate significant disease. The left common carotid artery was intact and does not indicate significant disease (to the extent visualized). The left subclavian artery appeared to have considerable proximal disease, but the exact site of the stenosis and the extent of the stenosis was unclear on the aortic arch injection. ANGIOGRAPHY OF THE LEFT SUBCLAVIAN ARTERY: Selective angiography of the left subclavian artery was performed and it showed 95% to 99% stenosis in its proximal portion to which we then carried out percutaneous intervention and following deployment of Omnilink 6.0 x 29 mm stent, there is 0% residual stenosis and flow throughout the artery is normal. ABDOMINAL AORTIC ANGIOGRAPHY: Abdominal aortic angiography indicated abdominal aortic calcification, but there did not appear to be abdominal aortic aneurysm or stenosis. The renal arteries were identified and they did not show significant disease. Aortoiliac bifurcation was intact and there appeared to be ostial disease of both iliac arteries. There was considerable calcification at the aortoiliac bifurcation. BILATERAL LEG ARTERY ANGIOGRAPHY: Bilateral leg artery angiography showed 70% to 80% stenosis of the common iliac and the external iliac arteries on both sides. The internal iliac arteries on both sides have severe ostial and proximal disease. The common and superficial femoral arteries are intact on both sides. The superficial femoral artery has 30% to 40% stenosis in both sides. The popliteal arteries are intact on both sides. The popliteal arteries trifurcate and have a 3-vessel runoff on both sides. DISCUSSION AND RECOMMENDATIONS: As described above, we intervened on the left subclavian, which was causing severe left arm claudication and absence of left arm pulse. This was accomplished successfully. Pulses now have been restored. He has been advised to quit smoking immediately and completely. We are adding Plavix to his previous regimen of Eliquis. We will consider percutaneous intervention to the leg arteries at a later time. Job ID: [id number] DocumentID: [id number] Dictated Date: 11/29/2020 10:15:17 [place] Date: 11/29/2020 12:13:49 Dictated By: VANITA BERGMAN MD, MA, FACP, FACC, MTDD
[2020-11-29] MEDS ORDERED: HEParin (CENTRAL IV FLUSH) 500 UNIT/5 ML SYR IV ONE (15:00)
== END 2020-11-29 15:10 | disposition home or self-care (01) ==
LOC: CATH 08:00 → CSD 10:22 → CATH 15:10
PROVIDERS: ATTEND Internal Medicine Cardiovascular Disease
DX: I70.213 Atherosclerosis of native arteries of extremities with intermittent claudication, bilateral legs (principal); I70.0 Atherosclerosis of aorta; I77.1 Stricture of artery; I50.22 Chronic systolic (congestive) heart failure; I48.91 Unspecified atrial fibrillation; I42.0 Dilated cardiomyopathy; E11.9 Type 2 diabetes mellitus without complications; F17.210 Nicotine dependence, cigarettes, uncomplicated; I25.10 Atherosclerotic heart disease of native coronary artery without angina pectoris; Z95.810 Presence of automatic (implantable) cardiac defibrillator; Z82.49 Family history of ischemic heart disease and other diseases of the circulatory system; Z83.3 Family history of diabetes mellitus; Z79.01 Long term (current) use of anticoagulants
CPT/HCPCS: 36215; 36221; 37236; 75625; 75710; 75716; 80053; 80061; 85027; 85610; 85730; 87081; C1725; C1760; C1769; C1876; C1894 ×2; 36415

== ENCOUNTER → 2020-12-27 | Outpatient (CLI) | payer MEDICARE, OTHER ==
[~2020-12-27] MED LIST changes: +CATHETER FLUSH 10 ML SYR IV PRN; +CLOP75TA69 PO; -HEParin (CATH LAB) 2,000 ML IV ONE; +HOLD METFORMIN - RECEIVED CONTRAST 20 ML VIAL IV SCH; +IOHEXOL 350 MG/ML 100 ML (OMNIPAQUE 350) VIAL IV ONE; -LIDOCAINE 1% INJ 20 ML 20 ML VIAL ONE; +NS 100 ML (IVPB) BAG IV ONE; -NS IV 1000 ML 1,000 ML IV SCH; -NS IV 1000 ML 1,000 ML ONE
--- NOTE | 2020-12-27 08:58 | Diagnostic Imaging Report ---
PROCEDURE: CT head with and without contrast. TECHNIQUE: Multiple contiguous axial images were obtained through the brain before and after the administration of intravenous contrast. Auto Exposure Controls were utilized during the CT exam to meet ALARA standards for radiation dose reduction. INDICATION: History of lung cancer. Loss of the sense of taste. Hand numbness. Evaluate for intracranial metastatic disease. COMPARISON: PET/CT on 11/22/2020. FINDINGS: No large acute territorial ischemia, mass, or hemorrhage. No evidence of enhancing mass. Scattered areas of decreased attenuation are seen in the periventricular and subcortical white matter. No midline shift or mass effect. The ventricles, cortical sulci, and basilar cisterns are patent and unremarkable. The calvarium is intact. Mild mucosal thickening is seen in the bilateral ethmoid sinuses. The mastoid air cells are clear. The globes and orbits are symmetric and unremarkable. IMPRESSION: 1. No large acute territorial ischemia. No evidence of acute hemorrhage or enhancing mass. No CT evidence of intracranial metastatic disease. 2. Scattered chronic microvascular disease in the periventricular and subcortical white matter. 3. Mild mucosal thickening in the ethmoid sinuses. Dictated by: Dictated on workstation # [id number]
== END ==
LOC: RAD FS 08:02
PROVIDERS: ATTEND Nurse Practitioner Adult Health
DX: I67.89 Other cerebrovascular disease (principal); J32.2 Chronic ethmoidal sinusitis; R20.0 Anesthesia of skin; Z85.118 Personal history of other malignant neoplasm of bronchus and lung
CPT/HCPCS: 70470

== ENCOUNTER 2021-01-23 09:19 | Outpatient (RCR) | payer MEDICARE, OTHER ==
[2020-11-24 11:05] LABS: BASOPHILS % (AUTO) 1 % (0-10); EOSINOPHILS # (AUTO) 0.2 10^3/uL (0.0-0.3); EOSINOPHILS % (AUTO) 2 % (0-10); HEMATOCRIT 44 % (40-54); HEMOGLOBIN 14.6 g/dL (13.3-17.7); LYMPHOCYTES # (AUTO) 1.3 10^3/uL (1.0-4.0); LYMPHOCYTES % (AUTO) 15 % (12-44); MEAN CORPUSCULAR HEMOGLOBIN 33 pg (25-34); MEAN CORPUSCULAR HGB CONC 33 g/dL (32-36); MEAN CORPUSCULAR VOLUME 100 fL (80-99); MEAN PLATELET VOLUME 11.3 fL (9.0-12.2); MONOCYTES # (AUTO) 1.3 10^3/uL (0.0-1.0); MONOCYTES % (AUTO) 15 % (0-12); NEUTROPHILS % (AUTO) 68 % (42-75); PLATELET COUNT 171 10^3/uL (130-400); WHITE BLOOD COUNT 8.9 10^3/uL (4.3-11.0)
[2020-11-24 11:40] LABS: ALANINE AMINOTRANSFERASE 23 U/L (0-55); ALBUMIN 3.8 GM/DL (3.2-4.5); ALKALINE PHOSPHATASE 52 U/L (40-136); BILIRUBIN,TOTAL 0.5 MG/DL (0.1-1.0); BUN/CREATININE RATIO 18; CARBON DIOXIDE 20 MMOL/L (21-32); CHLORIDE 105 MMOL/L (98-107); CREATININE SERUM 0.67 MG/DL (0.60-1.30); GFR ESTIMATED > 60; GLUCOSE 112 MG/DL (70-105); POTASSIUM 4.2 MMOL/L (3.6-5.0); SODIUM 137 MMOL/L (135-145); TOTAL PROTEIN 7.4 GM/DL (6.4-8.2)
[~2021-01-23] VITALS: Ht 172.7 cm; Wt 62.1 kg
[~2021-01-23 09:19] MED LIST changes: +ACETAMINOPHEN 500 MG TAB (TYLENOL) CANCER CTR PO PRN; -CATHETER FLUSH 10 ML SYR IV PRN; +FAMOTIDINE 20MG/2ML IV (CANCER CTR) IV SCH; -HOLD METFORMIN - RECEIVED CONTRAST 20 ML VIAL IV SCH; -IOHEXOL 350 MG/ML 100 ML (OMNIPAQUE 350) VIAL IV ONE; -NS 100 ML (IVPB) BAG IV ONE; +NS IV 1000 ML (CANCER CTR) IV SCH; +NS IV SCH; +PANITUMUMAB IV SCH; +diphenhydrAMINE 25 MG TAB (BENADRYL) CANCER CENTER PO SCH
[2021-01-31] MEDS ORDERED: ACETAMINOPHEN 500 MG TAB (TYLENOL) CANCER CTR PO PRN (16:15)
[2021-01-31] MEDS ORDERED: diphenhydrAMINE 25 MG TAB (BENADRYL) CANCER CENTER PO SCH (16:15)
[2021-01-31] MEDS ORDERED: FAMOTIDINE 20MG/2ML IV (CANCER CTR) IV SCH (16:15)
[2021-01-31] MEDS ORDERED: NS IV 1000 ML (CANCER CTR) IV SCH (16:15)
== END 2021-02-22 | disposition home or self-care (01) ==
LOC: ONC 09:19
PROVIDERS: ATTEND Internal Medicine Hematology & Oncology
DX: C09.9 Malignant neoplasm of tonsil, unspecified (principal); C78.02 Secondary malignant neoplasm of left lung; E11.9 Type 2 diabetes mellitus without complications; F17.210 Nicotine dependence, cigarettes, uncomplicated
CPT/HCPCS: 80053; 84443; 85025; G0463; 99213; 99214

== ENCOUNTER 2021-07-04 09:42 | Inpatient (IN) | payer MEDICARE ==
[~2021-07-04] VITALS: Ht 170 cm; Wt 60.0 kg
[~2021-07-04 09:42] MED LIST changes: -ACETAMINOPHEN 500 MG TAB (TYLENOL) CANCER CTR PO PRN; -FAMOTIDINE 20MG/2ML IV (CANCER CTR) IV SCH; -LISI2.5T PO; +LISI2.5T13 PO; -NS IV 1000 ML (CANCER CTR) IV SCH; -NS IV SCH; -PANITUMUMAB IV SCH; -POTA10TA36 PO; +POTA10TA37 PO; -diphenhydrAMINE 25 MG TAB (BENADRYL) CANCER CENTER PO SCH
--- NOTE | 2021-07-04 10:14 | ED General ---
General Stated Complaint: LOW BP; GEN PAIN History of Present Illness Date Seen by Provider: Jul 04, 2021 Time Seen by Provider: 10:05 Initial Comments Patient presenting to the emergency department for evaluation of multiple complaints including headache generalized pain and a home blood pressure of 68/52. Patient has been following with his primary care provider for his low blood pressures and his Coreg has been decreased. His blood pressure here was 107/62. He says the headache is diffuse pounding that has been present for 1 month continuously as he says he does wake up with the headaches. Patient denies fevers chills nausea vomiting vision changes unilateral weakness numbness or tingling. He says that he has been having multiple other areas of pain including ribs back abdomen but his left hip is what has been bothering him the most. His primary care provider has started him on gabapentin however he says it is minimally helping the pain. Patient is a smoker and says that he was diagnosed with lung cancer in October 2019 and he initially had chemotherapy and radiation and was also on Keytruda but the growth of his lung cancer continued and he decided not to have any further treatments. He says that he has been diagnosed with stage IV lung cancer and has not had any treatment since earlier this year. He is in no acute distress with normal vital signs at this time. Allergies and Home Medications Allergies Coded Allergies: No Known Drug Allergies (Unverified , 10/30/18) Patient Home Medication List Home Medication List Reviewed: Yes Apixaban (Eliquis) 2.5 Mg Tablet, 2.5 MG PO BID Prescribed by: MISA NELSON on 12/23/18 1028 Carvedilol (Carvedilol) 12.5 Mg Tablet, 12.5 MG PO BID, (Reported) Entered as Reported by: BLAIR HANSEN on 09/17/18 1115 Clopidogrel Bisulfate (Plavix) 75 Mg Tablet, 75 MG PO DAILY Prescribed by: VANITA BERGMAN on 11/29/20 1027 Diltiazem HCl (Cartia Xt) 120 Mg Cap.er.24h, 120 MG PO DAILY, (Reported) Entered as Reported by: FLOR SHANNON on 11/29/20 0747 Furosemide (Furosemide) 40 Mg Tablet, 80 MG PO DAILY, (Reported) Entered as Reported by: BLAIR HANSEN on 12/22/18 0920 Lisinopril (Lisinopril) 2.5 Mg Tablet, 2.5 MG PO DAILY, (Reported) Entered as Reported by: BLAIR HANSEN on 09/17/18 1115 [Potassium] , 20 MG PO PRN, (Reported) Entered as Reported by: FLOR SHANNON on 11/29/20 0747 Review of Systems Review of Systems Constitutional: no symptoms reported EENTM: no symptoms reported Respiratory: no symptoms reported Cardiovascular: no symptoms reported Gastrointestinal: abdominal pain Genitourinary: no symptoms reported Musculoskeletal: back pain, joint pain, muscle pain Skin: no symptoms reported Psychiatric/Neurological: Headache All Other Systems Reviewed Negative Unless Noted: Yes Past Tbpjpmc-Wzrbof-Pqcipl Hx Immunizations Up To Date Tetanus Booster (TDap): More than 5yrs PED Vaccines UTD: No Seasonal Allergies Seasonal Allergies: No Past Medical History Surgeries: Yes Cardiac, Pacemaker Respiratory: No COPD, Emphysema Currently Using CPAP: No Currently Using BIPAP: No Cardiac: No (pacemaker placed sep 13 2014) Coronary Artery Disease, Hypertension, Peripheral Vascular Neurological: No Reproductive Disorders: No Sexually Transmitted Disease: No HIV/AIDS: No Genitourinary: Yes (pancreatitis) Gastrointestinal: No Hepatitis Musculoskeletal: No Endocrine: No HEENT: Yes Loss of Vision: Bilateral Hearing Impairment: Hard of Hearing Cancer: Yes (TONSIL) Oral Did You Recieve Any Treatments: No What Type of Treatment Did You: Chemotherapy Psychosocial: No Integumentary: No Blood Disorders: No Adverse Reaction/Blood Tranf: No Family Medical History ARTERIAL STENTS 19 FATHER Abdominal aortic aneurysm 19 FATHER Alcoholism 19 FATHER Coronary thrombosis 19 FATHER Hypertension 19 FATHER LYMPH NODE CANCEROUS 19 MOTHER AAA, Heart Disease, Hypertension Physical Exam Vital Signs Vital Signs - First Documented 07/04/21 10:24 Temp 35.8 Pulse 118 Resp 22 B/P (MAP) 107/67 (80) Pulse Ox 97 O2 Delivery Room Air Capillary Refill : Height, Weight, BMI Height: 5'7.00" Weight: 129lbs. 0.0oz. 58.085455xp; 21.29 BMI Method:Actual General Appearance: No Apparent Distress, WD/WN HEENT: PERRL/EOMI Neck: Non Tender, Supple Respiratory: Lungs Clear, No Respiratory Distress Cardiovascular: Regular Rate, Rhythm Gastrointestinal: Non Tender, Soft Back: Normal Inspection Extremity: Normal Capillary Refill Neurologic/Psychiatric: Alert, Oriented x3 Skin: Warm/Dry Progress/Results/Core Measures Suspected Sepsis SIRS Temperature: Pulse: Respiratory Rate: Laboratory Tests 07/04/21 10:08: White Blood Count 14.4H Blood Pressure / Mean: Laboratory Tests 07/04/21 10:08: Creatinine 0.94, INR Comment 1.1, Platelet Count 336, Total Bilirubin 0.3 Results/Orders Lab Results Laboratory Tests Test 07/04/21 10:08 Range/Units White Blood Count 14.4 H 4.3-11.0 10^3/uL Red Blood Count 4.44 4.30-5.52 10^6/uL Hemoglobin 14.3 13.3-17.7 g/dL Hematocrit 43 40-54 % Mean Corpuscular Volume 98 80-99 fL Mean Corpuscular Hemoglobin 32 25-34 pg Mean Corpuscular Hemoglobin Concent 33 32-36 g/dL Red Cell Distribution Width 12.8 10.0-14.5 % Platelet Count 336 130-400 10^3/uL Mean Platelet Volume 9.9 9.0-12.2 fL Immature Granulocyte % (Auto) 1 % Neutrophils (%) (Auto) 83 H 42-75 % Lymphocytes (%) (Auto) 6 L 12-44 % Monocytes (%) (Auto) 10 0-12 % Eosinophils (%) (Auto) 0 0-10 % Basophils (%) (Auto) 0 0-10 % Neutrophils # (Auto) 12.0 H 1.8-7.8 X 10^3 Lymphocytes # (Auto) 0.8 L 1.0-4.0 X 10^3 Monocytes # (Auto) 1.4 H 0.0-1.0 X 10^3 Eosinophils # (Auto) 0.0 0.0-0.3 10^3/uL Basophils # (Auto) 0.0 0.0-0.1 10^3/uL Immature Granulocyte # (Auto) 0.1 0.0-0.1 10^3/uL Neutrophils % (Manual) 75 % Lymphocytes % (Manual) 8 % Monocytes % (Manual) 13 % Eosinophils % (Manual) 1 % Band Neutrophils 3 % Toxic Granulation 3+ Platelet Estimate NORMAL Blood Morphology Comment NORMAL Prothrombin Time 14.3 12.2-14.7 SEC INR Comment 1.1 0.8-1.4 Activated Partial Thromboplast Time 29 24-35 SEC Sodium Level 136 135-145 MMOL/L Potassium Level 4.4 3.6-5.0 MMOL/L Chloride Level 101 98-107 MMOL/L Carbon Dioxide Level 16 L 21-32 MMOL/L Anion Gap 19 H 5-14 MMOL/L Blood Urea Nitrogen 15 7-18 MG/DL Creatinine 0.94 0.60-1.30 MG/DL Estimat Glomerular Filtration Rate 82 BUN/Creatinine Ratio 16 Glucose Level 129 H 70-105 MG/DL Calcium Level 9.9 8.5-10.1 MG/DL Corrected Calcium 10.5 H 8.5-10.1 MG/DL Total Bilirubin 0.3 0.1-1.0 MG/DL Aspartate Amino Transf (AST/SGOT) 22 5-34 U/L Alanine Aminotransferase (ALT/SGPT) 11 0-55 U/L Alkaline Phosphatase 49 40-136 U/L Troponin I 0.052 H <0.028 NG/ML Total Protein 7.2 6.4-8.2 GM/DL Albumin 3.3 3.2-4.5 GM/DL Lipase 15 8-78 U/L My Orders Orders - RAD LLOYD DO Cbc With Automated Diff (07/04/21 10:02) Comprehensive Metabolic Panel (07/04/21 10:02) Iv/Invasive Line Insertion .IV start (07/04/21 10:02) Ua Culture If Indicated (07/04/21 10:02) Partial Thromboplastin Time (07/04/21 10:02) Protime With Inr (07/04/21 10:02) Lipase (07/04/21 10:02) Ct Lumbar Spine Wo (07/04/21 10:02) Ns Iv 1000 Ml (Sodium Chloride 0.9%) (07/04/21 10:15) Ondansetron Injection (Zofran Injectio (07/04/21 10:15) Fentanyl Inj (Sublimaze Injection) (07/04/21 10:15) Ct Head/Neck Wo (07/04/21 10:02) Ct Chest/Abdomen/Pelvis W (07/04/21 10:02) Iohexol Injection (Omnipaque 350 Mg/Ml 1 (07/04/21 10:15) Received Contrast (Hold Metformin- Contr (07/04/21 10:15) Sodium Chloride Flush (Catheter Flush Sy (07/04/21 10:15) Ns (Ivpb) (Sodium Chloride 0.9% Ivpb Bag (07/04/21 10:15) Manual Differential (07/04/21 10:08) Lactated Ringers (Lr 1000 Ml Iv Solution (07/04/21 11:30) Troponin I (07/04/21 10:08) Ekg Tracing (07/04/21 13:29) Fentanyl Inj (Sublimaze Injection) (07/04/21 13:45) Troponin I Fs (07/04/21 14:34) Lactic Acid Analyzer (07/04/21 14:34) Lr 1000 Ml Wide Open (07/04/21 14:45) Medications Given in ED Current Medications Medications Dose Ordered Sig/Russel Route Start Time Stop Time Status Last Admin Dose Admin Fentanyl Citrate 50 mcg ONCE ONCE IVP 07/04/21 10:15 07/04/21 10:16 DC 07/04/21 10:16 50 MCG Fentanyl Citrate 75 mcg ONCE ONCE IVP 07/04/21 13:45 07/04/21 13:46 DC 07/04/21 13:38 75 MCG Iohexol 100 ml ONCE ONCE IV 07/04/21 10:15 07/04/21 10:16 DC 07/04/21 12:33 100 ML Ondansetron HCl 4 mg ONCE ONCE IVP 07/04/21 10:15 07/04/21 10:16 DC 07/04/21 10:15 4 MG Sodium Chloride 10 ml NEEDED PRN IV 07/04/21 10:15 07/04/21 12:34 10 ML Sodium Chloride 100 ml ONCE ONCE IV 07/04/21 10:15 07/04/21 10:16 DC 07/04/21 12:34 80 ML Vital Signs/I&O 07/04/21 10:24 Temp 35.8 Pulse 118 Resp 22 B/P (MAP) 107/67 (80) Pulse Ox 97 O2 Delivery Room Air Capillary Refill : Progress Note : Progress Note Patient has nonspecific leukocytosis. The chemistry lab is done at this time and his labs are having to be sent to [place] to be ran and this will delay t he CT imaging as well as he will not do the CT is without a creatinine. I will continue to treat his symptoms and observe until work-up can be completed. My concern is at this time is that he has untreated stage IV lung cancer and he is now having pain in multiple areas so he may have metastatic process. Work-up completed except for his urinalysis and it does appear the patient has multiple abnormalities including worsening lung cancer with metastatic lesions to the liver. Patient continues to have hypotension with his MAP mostly in the 65-70 range and he still has not been able to urinate or had significant improvement in his blood pressure despite 2 L of fluid. He does have leukocytosis but no definite source for infection has been found at this point. Patient does have elevated troponin but his EKG does not show any obvious ischemic changes but I will go ahead and give him a dose of aspirin and repeat his troponin and add on a lactic acid. I asked patient what he wants to do given he refused care for his cancer in the past and he says at this point he would like further testing treatment and consultation and would like to be a full code. Patient will be transferred to [facility] and in improved condition as he was accepted by Dr. Bruner. Departure Impression Primary Impression: Hypotension Qualified Codes: I95.9 - Hypotension, unspecified Additional Impressions: Lung cancer, primary, with metastasis from lung to other site Qualified Codes: C34.90 - Malignant neoplasm of unspecified part of unspecified bronchus or lung Elevated troponin level Leukocytosis Disposition: ADMITTED INPATIENT Condition: Improved Transfer Transfer Reason: Exceeds level of care Transfer Facility: [facility] Departure-Patient Inst. Referrals: REINALDO MA MD (PCP/Family) Primary Care Physician RAD LLOYD DO Jul 04, 2021 10:14
[2021-07-04] MEDS ORDERED: NS IV 1000 ML 1,000 ML IV SCH (10:15)
[2021-07-04] MEDS ORDERED: CATHETER FLUSH 10 ML SYR IV PRN (10:15)
[2021-07-04] MEDS ORDERED: NS 100 ML (IVPB) BAG IV ONE (10:15)
[2021-07-04] MEDS ORDERED: ONDANSETRON 4 MG/2 ML (SDV) Z0FRAN IVP ONE (10:15)
[2021-07-04] MEDS ORDERED: HOLD METFORMIN - RECEIVED CONTRAST 20 ML VIAL IV SCH (10:15)
[2021-07-04] MEDS ORDERED: IOHEXOL 350 MG/ML 100 ML (OMNIPAQUE 350) VIAL IV ONE (10:15)
[2021-07-04] MEDS ORDERED: fentaNYL INJ 100 MCG/2 ML AMP IVP ONE ×2 (10:15→13:45)
[2021-07-04 10:37] LABS: BASOPHILS % (AUTO) 0 % (0-10); EOSINOPHILS % (AUTO) 0 % (0-10); HEMATOCRIT 43 % (40-54); HEMOGLOBIN 14.3 g/dL (13.3-17.7); LYMPHOCYTES # (AUTO) 0.8 X 10^3 (1.0-4.0); LYMPHOCYTES % (AUTO) 6 % (12-44); MEAN CORPUSCULAR HEMOGLOBIN 32 pg (25-34); MEAN CORPUSCULAR HGB CONC 33 g/dL (32-36); MEAN CORPUSCULAR VOLUME 98 fL (80-99); MEAN PLATELET VOLUME 9.9 fL (9.0-12.2); MONOCYTES # (AUTO) 1.4 X 10^3 (0.0-1.0); MONOCYTES % (AUTO) 10 % (0-12); NEUTROPHILS % (AUTO) 83 % (42-75); PLATELET COUNT 336 10^3/uL (130-400); WHITE BLOOD COUNT 14.4 10^3/uL (4.3-11.0)
[2021-07-04 10:39] LABS: INR 1.1 (0.8-1.4); PROTHROMBIN TIME PATIENT 14.3 SEC (12.2-14.7)
[2021-07-04 10:55] LABS: BAND NEUTROPHILS 3 %; EOSINOPHILS % (MANUAL) 1 %; LYMPHOCYTES % (MANUAL) 8 %; MONOCYTES % (MANUAL) 13 %; NEUTROPHILS % (MANUAL) 75 %; PLATELET ESTIMATE NORMAL; RBC MORPH NORMAL
[2021-07-04 10:57] LABS: TOXIC GRANULATION/VACUOLAZATIO 3+
[2021-07-04] MEDS: LACTATED RINGERS 1,000 ML IV SCH ×3 (11:30→17:54)
[2021-07-04 11:56] LABS: POTASSIUM 4.4 MMOL/L (3.6-5.0)
[2021-07-04 11:57] LABS: BILIRUBIN,TOTAL 0.3 MG/DL (0.1-1.0); CALCIUM 9.9 MG/DL (8.5-10.1); TOTAL PROTEIN 7.2 GM/DL (6.4-8.2)
[2021-07-04 11:58] LABS: ALBUMIN 3.3 GM/DL (3.2-4.5); CREATININE SERUM 0.94 MG/DL (0.60-1.30)
--- NOTE | 2021-07-04 13:00 | Diagnostic Imaging Report ---
PROCEDURE: CT lumbar spine without contrast. TECHNIQUE: Multiple contiguous axial images were obtained through the lumbar spine without the use of intravenous contrast. Sagittal and coronal reformations were then performed. Auto Exposure Controls were utilized during the CT exam to meet ALARA standards for radiation dose reduction. INDICATION: Lung cancer, head and spinal pain. Study interpreted in correlation with metabolic CT fusion PET performed 11/22/2020. Some areas of mild degenerative endplate sclerosis. No suspicious lytic or sclerotic lumbar spinal lesion. No bony destructive process. No paravertebral fluid collection. There are degenerative changes to the SI joints. There is slight grade 1 degenerative retrolisthesis of L5 with respect to the remaining lumbar column. This is off about 2 mm. The pedicles and pars were intact. There is no acute or chronic lumbar fracture. There is atrophy and extensive parenchymal calcifications associated with the pancreas without an acute fluid collection. Degenerative changes at L4-L5 result in moderate to severe central canal stenosis with moderate to severe biforaminal narrowing. At the L5-S1 level there is moderate spinal canal stenosis with moderate to severe right and moderate left foraminal narrowing. IMPRESSION: Spondylosis and facet arthrosis with grade 1 degenerative listhesis and lower lumbar canal and foraminal stenoses as above. No fracture and no findings to suggest lumbar spinal involvement by metastatic disease. Dictated by: Dictated on workstation # [id number]
--- NOTE | 2021-07-04 13:05 | Diagnostic Imaging Report ---
PROCEDURE: CT head and neck without contrast. TECHNIQUE: Contiguous axial images were obtained from the skull base through the vertex. Noncontrast axial images were then obtained of the soft tissue of the neck. Auto Exposure Controls were utilized during the CT exam to meet ALARA standards for radiation dose reduction. INDICATION: Lung cancer, head pain Study compared with head CT 12/27/2020 CT neck compared 09/18/2019 CT HEAD: There is no hydrocephalus, edema, mass, mass effect or evidence for an elevation of the intracerebral pressures. No sulcal effacement. Basilar cisterns patent. No loss of the cortical martell-white matter differentiations. Orbits, sinuses and calvarium appeared nonacute. There has been no change. CT CERVICAL SPINE: Compared with soft tissue protocol neck CT 09/18/2019, degenerative changes to the discs, endplates, facets and uncovertebral joints on a chronic basis throughout the cervical spine is stable. There is no suspicious lytic or sclerotic bony lesion. No osseous destruction. No findings to suggest cervical spinal involvement by metastatic disease. The right greater than left carotid atherosclerotic vascular calcifications. The central skull base and craniocervical junction appeared unremarkable. There is moderate bony biforaminal stenosis C3-C4 and on the left at C4-C5. Moderate to severe biforaminal stenosis C5-C6 and C6-C7 present. No high-grade canal stenosis. IMPRESSION: CT HEAD: Stable CT head. No acute or suspect finding. CT CERVICAL SPINE: Chronic spondylosis results in multilevel chronic bony foraminal stenoses. No suspicious lytic or sclerotic lesion, fracture or acute cervical spinal pathology. Dictated by: Dictated on workstation # [id number]
--- NOTE | 2021-07-04 13:18 | Diagnostic Imaging Report ---
PROCEDURE: CT chest, abdomen, and pelvis with contrast. TECHNIQUE: Multiple contiguous axial images were obtained through the chest, abdomen, and pelvis after the administration of intravenous contrast. Auto Exposure Controls were utilized during the CT exam to meet ALARA standards for radiation dose reduction. Date: July 04, 2021. Indication: 60-year-old male, history of lung cancer. Headache for one month. Comparison: Head CT November 22, 2020. Findings: There is a pulmonary nodule in the right lung apex on axial image 9 measuring 9 mm in size which is new since November 22, 2020. There is a subjacent 5 mm right upper lobe pulmonary nodule on axial image 12. There is a right upper lobe pulmonary nodule on axial image 25 measuring up to 1.9 cm in size which is also new. There are multiple additional right upper lobe, right middle lobe, and right lower lobe pulmonary nodules which are also an interval change since comparison exam. There is a right middle lobe mass with involvement and complete opacification of right middle lobe bronchi this is directly extending into the right hilar and subcarinal region and measures roughly 7.7 x 3.7 cm in axial extent. On prior PET/CT on November 22, 2020, this previously was smaller in size and measured 3.1 x 3.0 cm in size. There are multiple left upper lobe and left lower lobe pulmonary nodules and/or masses. There is a left lower lobe mass on axial image 106 measuring 7.6 x 5.5 cm in size. This is increased in size since prior PET/CT and previously measured 5.6 x 4.0 cm in axial extent. The additional pulmonary nodules present are new since prior PET/CT. There are findings of emphysema. There is no pneumothorax. There is no sizable pleural effusion. There is a pleural-based nodule on the right on axial image 110 measuring 2.7 x 1.2 cm in size. There is an anterior mediastinal mass/lymph node measuring 2.9 x 2.7 cm in size on axial image 36. There are confluent abnormally enlarged AP window and left hilar lymph nodes as well as confluent paratracheal, right hilar, and subcarinal adenopathy. This is increased in extent since prior PET/CT on November 22, 2020. There is mass effect on the pulmonary vasculature relating to the above-mentioned masses and/or adenopathy. There is no identified central or segmental pulmonary embolus. The heart is not enlarged. There are coronary artery calcifications. There is no sizable pericardial effusion. There is incidental note of direct origin of the left vertebral artery off the aortic arch. The liver is unremarkable in size and contour. There is an ill-defined low-attenuation lesion in the posterior aspect of the right lobe of liver on axial image 19 measuring 3.4 x 2.3 cm in size. There is no FDG avid lesion at this location on prior PET/CT. The main, right, left portal veins are patent. The gallbladder is unremarkable. There is no identified intrahepatic or extrahepatic bile duct dilation. There are pancreatic parenchymal calcifications consistent with chronic pancreatitis without evidence of acute pancreatitis. There is a 8 mm low-attenuation lesion in the spleen on axial image 12 too small to characterize. The adrenal glands are unremarkable. There is a low-attenuation left renal lesion on axial image 25 which measures 3.7 cm in size with internal attenuation of 10 Hounsfield units. This is consistent with a benign cyst. There is an additional benign left renal cyst on axial image 32. The urinary collecting systems are not distended. The urinary bladder is mildly distended without CT apparent wall thickening. The intestinal tract is not distended. There is no free intraperitoneal air. There is no drainable fluid collection. There is no sizable volume free pelvic fluid. There is a retroaortic left renal vein. There are prominent atherosclerotic calcifications. There is generalized subcutaneous edema. There are multilevel degenerative changes of the spine. There is no identified bone lesion concerning for bone metastasis. Impression: 1. Substantial interval increase in size of the right middle lobe mass involving the right mainstem bronchus and directly extending into the right hilar region compatible with progression of malignancy. 2. Numerous bilateral pulmonary nodules and/or masses with new and/or increased in size since prior PET/CT on November 22, 2020. These likely relate to multiple metastatic lesions. 3. Interval progression of currently extensive mediastinal and hilar adenopathy likely reflecting extensive metastatic flor disease. 4. Nonspecific lesion in the posterior aspect of the right lobe of the liver highly concerning for a metastatic lesion. 5. Findings of chronic pancreatitis without evidence of acute pancreatitis. 6. Benign left renal cysts. Dictated by: Dictated on workstation # [id number]
[2021-07-04] MEDS ORDERED: ASPIRIN 81 MG CHEW (CHILDREN'S ASA) PO ONE (14:45)
[2021-07-04] MEDS ORDERED: LACTATED RINGERS 1,000 ML IV SCH (14:45)
[2021-07-04 15:59] LABS: BILIRUBIN,URINE NEGATIVE (NEGATIVE); CLARITY,URINE CLEAR; COLOR,URINE YELLOW; GLUCOSE, URINE (UA) NEGATIVE (NEGATIVE); KETONES,URINE TRACE (NEGATIVE); LEUKOCYTE ESTERASE ,URINE NEGATIVE (NEGATIVE); NITRITE,URINE NEGATIVE (NEGATIVE); PROTEIN,URINE NEGATIVE (NEGATIVE)
[2021-07-04 16:07] LABS: BACTERIA,URINE NEGATIVE /HPF; CALCIUM OXALATE CRYSTALS,UR FEW /LPF; RBC,URINE 0-2 /HPF; SQUAMOUS EPITHELIAL CELL,UR 0-2 /HPF
[2021-07-04 16:08] LABS: WHITE BLOOD CELL CASTS, URINE 0-2 /LPF
[2021-07-04 17:00] VITALS: BP 111/67
[2021-07-04] MEDS: fentaNYL INJ 100 MCG/2 ML AMP IV PRN ×2 (17:43→21:49)
[2021-07-04 20:00] VITALS: BP 102/62
[2021-07-04] MEDS ORDERED: BENZONATATE 100 MG (TESSALON) CAPSULE PO ONE (22:23)
[2021-07-04] MEDS: ENOXAPARIN 60 MG/0.6 ML (LOVENOX) SYR SC SCH (22:24)
[2021-07-04] MEDS ORDERED: BENZONATATE 100 MG (TESSALON) CAPSULE PO PRN (22:30)
[2021-07-04 23:40] VITALS: BP 117/58
[2021-07-05] MEDS: fentaNYL INJ 100 MCG/2 ML AMP IV PRN ×3 (02:06→19:56)
[2021-07-05 03:57] VITALS: BP 113/70
[2021-07-05 05:50] LABS: BASOPHILS % (AUTO) 0 % (0-10); EOSINOPHILS # (AUTO) 0.1 10^3/uL (0.0-0.3); EOSINOPHILS % (AUTO) 1 % (0-10); HEMATOCRIT 33 % (40-54); HEMOGLOBIN 11.1 g/dL (13.3-17.7); LYMPHOCYTES # (AUTO) 0.6 10^3/uL (1.0-4.0); LYMPHOCYTES % (AUTO) 6 % (12-44); MEAN CORPUSCULAR HEMOGLOBIN 32 pg (25-34); MEAN CORPUSCULAR HGB CONC 33 g/dL (32-36); MEAN CORPUSCULAR VOLUME 97 fL (80-99); MEAN PLATELET VOLUME 9.9 fL (9.0-12.2); MONOCYTES # (AUTO) 1.4 10^3/uL (0.0-1.0); MONOCYTES % (AUTO) 13 % (0-12); NEUTROPHILS # (AUTO) 8.4 10^3/uL (1.8-7.8); NEUTROPHILS % (AUTO) 79 % (42-75); PLATELET COUNT 282 10^3/uL (130-400); WHITE BLOOD COUNT 10.5 10^3/uL (4.3-11.0)
[2021-07-05 06:12] LABS: POTASSIUM 3.9 MMOL/L (3.6-5.0)
[2021-07-05 06:14] LABS: CALCIUM 9.1 MG/DL (8.5-10.1)
[2021-07-05 06:18] LABS: CREATININE SERUM 0.65 MG/DL (0.60-1.30)
[2021-07-05] MEDS: ACETAMINOPHEN 325 MG TABLET PO SCH ×3 (07:08→17:42)
[2021-07-05 07:20] VITALS: BP 125/82
[2021-07-05] MEDS ORDERED: CARV6.252 PO (09:35)
[2021-07-05] MEDS ORDERED: APIX2.5T PO (09:35)
[2021-07-05] MEDS ORDERED: IBUP1TAB PO (09:35)
[2021-07-05] MEDS ORDERED: CLOP75TA28 PO (09:35)
[2021-07-05] MEDS ORDERED: DILT-27 PO (09:35)
[2021-07-05] MEDS: AMIODARONE 200 MG (CORDARONE) TAB PO SCH ×2 (09:38→19:53)
[2021-07-05] MEDS: ENOXAPARIN 60 MG/0.6 ML (LOVENOX) SYR SC SCH (09:38)
--- NOTE | 2021-07-05 10:32 | Consultation-Cardiology ---
HPI-Cardiology Cardiology Consultation: Date of Consultation 07/05/21 Time Seen by a Provider: 10:50 Date of Admission 07-04-21 Attending Physician Nery Bruner MD Admitting Physician Sudhakar Acosta MD Consulting Physician Karen Gregorio MD HPI: Chief Complaint: Gen weakness SOB Mr. Edyd is a 60 yr old male admitted to 414 from the [facility] ED with increasing fatigue, left hip pain and generally feeling unwell. He was found to be hypotensive in the ED. He denies any c/o CP, palpitations, syncope or near syncope. No LE swelling. He states he wishes to go home and would like to speak with Hospice services. He has metastatic lung cancer and does not wish to undergo any aggressive treatment. No c/o n/v/d. No c/o fever or chills. Review of Systems-Cardiology Review of Systems Constitutional: No chills, No fever; malaise, tiredness Eyes: No vision change Ears/Nose/Throat: chronic hearing loss Respiratory: As described under HPI Cardiovascular: As described under HPI Gastrointestinal: As described under HPI Genitourinary: No dysuria, No hematuria Musculoskeletal: As describe under HPI Skin: No rash on exposed areas, No ulcerations on exposed areas Psychiatric/Neurological: No anxiety, No depression, No seizure, No focal weakness Hematologic: No bleeding abnormalities All Other Systems Reviewed Negative Unless Noted: Yes GZC-Rkpvsz-Irurws Hx Patient Social History Smoking Status: Current Everyday Smoker 2nd Hand Smoke Exposure: Yes Have you traveled recently?: No Alcohol Use?: No Pt feels they are or have been: No Tobacco type used: Cigars Immunizations Up To Date Tetanus Booster (TDap): More than 5yrs Date of Pneumonia Vaccine: Apr 22, 2013 Date of Influenza Vaccine: Apr 21, 2015 Past Medical History PMH As described under Assessment. Family Medical History Family Medical History: He reports his father had CAD, HTN and AAA. Family History: 19 FATHER Abdominal aortic aneurysm Hypertension Coronary thrombosis ARTERIAL STENTS Alcoholism 19 MOTHER LYMPH NODE CANCEROUS Allergies and Home Medications Allergies Coded Allergies: No Known Drug Allergies (Unverified , 10/30/18) Patient Home Medication List Apixaban (Eliquis) 2.5 Mg Tablet, 2.5 MG PO BID, (Reported) Entered as Reported by: OLIVER GRANADOS on 07/05/21 2685 Last Action: Reviewed Carvedilol (Carvedilol) 6.25 Mg Tablet, 6.25 MG PO BID WITH MEALS, (Reported) Entered as Reported by: OLIVER GRANADOS on 07/05/21934 Last Action: Reviewed Clopidogrel Bisulfate (Clopidogrel) 75 Mg Tablet, 75 MG PO DAILY, (Reported) Entered as Reported by: OLIVER GRANADOS on 07/05/21934 Last Action: Reviewed Diltiazem HCl (Diltiazem 24Hr ER) 120 Mg Cap.er.24h, 120 MG PO DAILY, (Reported) Entered as Reported by: OLIVER GRANADOS on 07/05/21934 Last Action: Reviewed Ibuprofen/Diphenhydramine Cit (Ibuprofen Pm Caplet) 1 Each Tablet, 1-2 EACH PO HS PRN for SLEEP, (Reported) Entered as Reported by: OLIVER GRANADOS on 07/05/21934 Last Action: Reviewed Lisinopril (Lisinopril) 2.5 Mg Tablet, 2.5 MG PO DAILY, (Reported) Entered as Reported by: BLAIR HANSEN on 09/17/181114 Last Action: Reviewed Discontinued Medications Apixaban (Eliquis) 2.5 Mg Tablet, 2.5 MG PO BID Discontinued Reason: No Longer Taking Prescribed by: MISA NELSON on 12/23/18 1028 Last Action: Discontinued Carvedilol (Carvedilol) 12.5 Mg Tablet, 12.5 MG PO BID, (Reported) Discontinued Reason: No Longer Taking Entered as Reported by: BLAIR HANSEN on 09/17/18 111 Last Action: Discontinued Clopidogrel Bisulfate (Plavix) 75 Mg Tablet, 75 MG PO DAILY Discontinued Reason: No Longer Taking Prescribed by: KAREN GREGORIO on 11/29/20 1027 Last Action: Discontinued Diltiazem HCl (Cartia Xt) 120 Mg Cap.er.24h, 120 MG PO DAILY, (Reported) Discontinued Reason: No Longer Taking Entered as Reported by: FLOR SHANNON on 11/29/20 0732 Last Action: Discontinued Furosemide (Furosemide) 40 Mg Tablet, 80 MG PO DAILY, (Reported) Discontinued Reason: No Longer Taking Entered as Reported by: BLAIR HANSEN on 12/22/18 0920 Last Action: Discontinued [Potassium] , 20 MG PO PRN, (Reported) Discontinued Reason: No Longer Taking Entered as Reported by: FLOR SHANNON on 11/29/20 7234 Last Action: Discontinued Physical Exam-Cardiology Physical Exam Vital Signs/I&O 07/04/21 07/05/21 07/05/21 07/05/21 23:40 01:00 03:57 07:00 Temp 36.6 36.7 Pulse 95 89 86 84 Resp 22 20 B/P (MAP) 117/58 (77) 113/70 (84) Pulse Ox 92 92 O2 Delivery Room Air Room Air 07/05/21 07/05/21 07:20 08:00 Temp 36.7 Pulse 88 Resp 20 B/P (MAP) 125/82 (96) Pulse Ox 91 O2 Delivery Room Air Room Air 07/05/21 00:00 Intake Total 350 ml Output Total 300 ml Balance 50 ml Capillary Refill : NONE Constitutional: AAO x 3, other (thin) HEENT: hard of hearing, oral hygience is good Neck: No carotid bruit; carotid pulses are 2 + bilaterally Respiratory: No accessory muscle use, No respiratory distress; chest expansion is symmetric, chest is bilaterally symmetric, other (diminished breath sounds; R>L) Cardiovascular: regular rate-rhythm; No JVD; S1 and S2 Gastrointestinal: soft, round, audible bowel sounds Extremities: no lower extremity edema bilateral Neurologic/Psychiatric: grossly intact (moves all extremities) Skin: No rash on exposed areas, No ulcerations on exposed areas Data Review Labs Laboratory Tests 07/04/21 13:48: Urine Color YELLOW, Urine Clarity CLEAR, Urine pH 5.0, Urine Specific [place] 1.010L, Urine Protein NEGATIVE, Urine Glucose (UA) NEGATIVE, Urine Ketones TRACEH, Urine Nitrite NEGATIVE, Urine Bilirubin NEGATIVE, Urine Urobilinogen 0.2, Urine Leukocyte Esterase NEGATIVE, Urine RBC (Auto) TRACE-IH, Urine RBC 0- 2, Urine WBC 2-5, Urine Squamous Epithelial Cells 0-2, Urine Crystals PRESENTH, Urine Calcium Oxalate Crystals FEWH, Urine Bacteria NEGATIVE, Urine Casts PRESENT, Urine Hyaline Casts 10-25H, Urine Granular Casts 5-10H, Urine Coarse Granular Casts 5-10H, Urine White Blood Cell Casts 0-2H, Urine Mucus SMALLH, Urine Culture Indicated NO 07/04/21 14:45: Lactic Acid Level 1.64, Troponin I < 0.30 07/04/21 17:40: Lactic Acid Level 0.98, Troponin I 0.047H 07/04/21 21:15: Troponin I 0.106H 07/05/21 00:35: Troponin I 0.046H 07/05/21 05:40: White Blood Count 10.5, Red Blood Count 3.45L, Hemoglobin 11.1#L, Hematocrit 33L , Mean Corpuscular Volume 97, Mean Corpuscular Hemoglobin 32, Mean Corpuscular Hemoglobin Concent 33, Red Cell Distribution Width 12.8, Platelet Count 282, Mean Platelet Volume 9.9, Immature Granulocyte % (Auto) 1, Neutrophils (%) (Auto) 79H, Lymphocytes (%) (Auto) 6L, Monocytes (%) (Auto) 13H, Eosinophils (%) (Auto) 1, Basophils (%) (Auto) 0, Neutrophils # (Auto) 8.4H, Lymphocytes # (Auto) 0.6L, Monocytes # (Auto) 1.4H, Eosinophils # (Auto) 0.1, Basophils # (Auto) 0.0, Immature Granulocyte # (Auto) 0.1, Sodium Level 131L, Potassium Level 3.9, Chloride Level 102, Carbon Dioxide Level 20L, Anion Gap 9, Blood Urea Nitrogen 12, Creatinine 0.65, Estimat Glomerular Filtration Rate 125, BUN/Creatinine Ratio 18, Glucose Level 104, Calcium Level 9.1 07/05/21 08:31: Thyroid Stimulating Hormone (TSH) 6.72H Radiology NAME: MELISSA EDDY [facility] REC#: [id number] PT STATUS: REG ER : 1960 PHYSICIAN: RAD LLOYD DO ADMIT DATE: 07/04/21/ER FS Signed Date of Exam:07/04/21 CT CHEST/ABDOMEN/PELVIS W PROCEDURE: CT chest, abdomen, and pelvis with contrast. TECHNIQUE: Multiple contiguous axial images were obtained through the chest, abdomen, and pelvis after the administration of intravenous contrast. Auto Exposure Controls were utilized during the CT exam to meet ALARA standards for radiation dose reduction. Date: July 04, 2021. Indication: 60-year-old male, history of lung cancer. Headache for one month. Comparison: Head CT November 22, 2020. Findings: There is a pulmonary nodule in the right lung apex on axial image 9 measuring 9 mm in size which is new since November 22, 2020. There is a subjacent 5 mm right upper lobe pulmonary nodule on axial image 12. There is a right upper lobe pulmonary nodule on axial image 25 measuring up to 1.9 cm in size which is also new. There are multiple additional right upper lobe, right middle lobe, and right lower lobe pulmonary nodules which are also an interval change since comparison exam. There is a right middle lobe mass with involvement and complete opacification of right middle lobe bronchi this is directly extending into the right hilar and subcarinal region and measures roughly 7.7 x 3.7 cm in axial extent. On prior PET/CT on November 22, 2020, this previously was smaller in size and measured 3.1 x 3.0 cm in size. There are multiple left upper lobe and left lower lobe pulmonary nodules and/or masses. There is a left lower lobe mass on axial image 106 measuring 7.6 x 5.5 cm in size. This is increased in size since prior PET/CT and previously measured 5.6 x 4.0 cm in axial extent. The additional pulmonary nodules present are new since prior PET/CT. There are findings of emphysema. There is no pneumothorax. There is no sizable pleural effusion. There is a pleural-based nodule on the right on axial image 110 measuring 2.7 x 1.2 cm in size. There is an anterior mediastinal mass/lymph node measuring 2.9 x 2.7 cm in size on axial image 36. There are confluent abnormally enlarged AP window and left hilar lymph nodes as well as confluent paratracheal, right hilar, and subcarinal adenopathy. This is increased in extent since prior PET/CT on November 22, 2020. There is mass effect on the pulmonary vasculature relating to the above-mentioned masses and/or adenopathy. There is no identified central or segmental pulmonary embolus. The heart is not enlarged. There are coronary artery calcifications. There is no sizable pericardial effusion. There is incidental note of direct origin of the left vertebral artery off the aortic arch. The liver is unremarkable in size and contour. There is an ill-defined low-attenuation lesion in the posterior aspect of the right lobe of liver on axial image 19 measuring 3.4 x 2.3 cm in size. There is no FDG avid lesion at this location on prior PET/CT. The main, right, left portal veins are patent. The gallbladder is unremarkable. There is no identified intrahepatic or extrahepatic bile duct dilation. There are pancreatic parenchymal calcifications consistent with chronic pancreatitis without evidence of acute pancreatitis. There is a 8 mm low-attenuation lesion in the spleen on axial image 12 too small to characterize. The adrenal glands are unremarkable. There is a low-attenuation left renal lesion on axial image 25 which measures 3.7 cm in size with internal attenuation of 10 Hounsfield units. This is consistent with a benign cyst. There is an additional benign left renal cyst on axial image 32. The urinary collecting systems are not distended. The urinary bladder is mildly distended without CT apparent wall thickening. The intestinal tract is not distended. There is no free intraperitoneal air. There is no drainable fluid collection. There is no sizable volume free pelvic fluid. There is a retroaortic left renal vein. There are prominent atherosclerotic calcifications. There is generalized subcutaneous edema. There are multilevel degenerative changes of the spine. There is no identified bone lesion concerning for bone metastasis. Impression: 1. Substantial interval increase in size of the right middle lobe mass involving the right mainstem bronchus and directly extending into the right hilar region compatible with progression of malignancy. 2. Numerous bilateral pulmonary nodules and/or masses with new and/or increased in size since prior PET/CT on November 22, 2020. These likely relate to multiple metastatic lesions. 3. Interval progression of currently extensive mediastinal and hilar adenopathy likely reflecting extensive metastatic flor disease. 4. Nonspecific lesion in the posterior aspect of the right lobe of the liver highly concerning for a metastatic lesion. 5. Findings of chronic pancreatitis without evidence of acute pancreatitis. 6. Benign left renal cysts. Dictated by: Dictated on workstation # [id number] Dict: 07/04/21 1251 Trans: 07/04/21 1545 [facility] [id number] Interpreted by: ESTEPHANIE JOHNSON MD Electronically signed by: ESTEPHANIE JOHNSON MD 07/04/21 1549 NAME: MELISSA EDDY [facility] REC#: [id number] PT STATUS: REG ER : 1960 PHYSICIAN: RAD LLOYD DO ADMIT DATE: 07/04/21/ER FS Signed Date of Exam:07/04/21 CT HEAD/NECK WO PROCEDURE: CT head and neck without contrast. TECHNIQUE: Contiguous axial images were obtained from the skull base through the vertex. Noncontrast axial images were then obtained of the soft tissue of the neck. Auto Exposure Controls were utilized during the CT exam to meet ALARA standards for radiation dose reduction. INDICATION: Lung cancer, head pain Study compared with head CT 12/27/2020 CT neck compared 09/18/2019 CT HEAD: There is no hydrocephalus, edema, mass, mass effect or evidence for an elevation of the intracerebral pressures. No sulcal effacement. Basilar cisterns patent. No loss of the cortical martell-white matter differentiations. Orbits, sinuses and calvarium appeared nonacute. There has been no change. CT CERVICAL SPINE: Compared with soft tissue protocol neck CT 09/18/2019, degenerative changes to the discs, endplates, facets and uncovertebral joints on a chronic basis throughout the cervical spine is stable. There is no suspicious lytic or sclerotic bony lesion. No osseous destruction. No findings to suggest cervical spinal involvement by metastatic disease. The right greater than left carotid atherosclerotic vascular calcifications. The central skull base and craniocervical junction appeared unremarkable. There is moderate bony biforaminal stenosis C3-C4 and on the left at C4-C5. Moderate to severe biforaminal stenosis C5-C6 and C6-C7 present. No high-grade canal stenosis. IMPRESSION: CT HEAD: Stable CT head. No acute or suspect finding. CT CERVICAL SPINE: Chronic spondylosis results in multilevel chronic bony foraminal stenoses. No suspicious lytic or sclerotic lesion, fracture or acute cervical spinal pathology. Dictated by: Dictated on workstation # [id number] Dict: 07/04/21 1258 Trans: 07/04/21 1544 [facility] [id number] Interpreted by: TESS ALMAGUER Electronically signed by: TESS ALMAGUER 07/04/21 1544 ECG Impression ECG Comment Intermittent AV pacing A/P-Cardiology Assessment/Admission Diagnosis Minimally elevated troponin -likely Type 2 PA secondary to transient hypotension and hypoxia d/t widespread lung cancer Lung Cancer - manged by Dr. Mckeon with metastatic dz to the liver per CTA on 07-04-21 - he has opted to not undergo treatment Syncopal episode - undetermined etiology PAD - Peripheral aniogram of 11-29-20 was as follows: - left subclavian artery was performed and it showed 95% to 99% stenosis in its proximal portion to which we then carried out percutaneous intervention and following deployment of Omnilink 6.0 x 29 mm stent, there is 0% residual stenosis and flow throughout the artery is normal. - Bilateral leg artery angiography showed 70% to 80% stenosis of the common iliac and the external iliac arteries on both sides. The internal iliac arteries on both sides have severe ostial and proximal disease. The common and superficial femoral arteries are intact on both sides. The superficial femoral artery has 30% to 40% stenosis in both sides. The popliteal arteries are intact on both sides. The popliteal arteries trifurcate and have a 3-vessel runoff on both sides. Intermittent noncompliance with meds Nonischemic cardiomyopathy, - likely alcohol-related. - Last cardiac cath was on 09/10/14 by Tyron Conklin DO, at [facility]. It is reported to have shown right dominant cor circulation, 40% stenosis of mid LCX, and minor luminal irreg elsewhere. LVEF was reported to be 60% on that cath of 09/10/14 - Echo of 10/07/19: LVEF 45-50%, mod to sev dilatation of LA, mild to mod MR, mild to mod TR, RVSP 25 mmHg MPI of 10/20/19: Cardiomegaly with global hypokinesis and basal inf akinesis and LVEF 20%, basal inf infarction w/o ischemia NSVT and inducible VT (programmed vent stim on isoproterenol) per EP studies at [place], [place]. - He had an EP Study on 09/13/14 by at [facility]. Diagnosis was severe nonischemic cardiomyopathy and syncope without prodrome and he received a [employer] ([employer]). - Device functioning normally on interrogation of 03-22-21 - episode in January 2021 of NSVT for which he received an AICD shock - AICD at [facility] in April 2021 - Dr. Gregorio has spoken with Dr. Mckeon of oncology services on 06-21-21 and she feels his prognois is not good and also does not feel AICD will prolonged life expectancy. He does not wish to have pulse gen change out carried out at this time, per lengthy conversation at time of office visit on 06-21-2021. PSVT and PAF with a fast vent response, - leading to inappropriate ICD discharges in early December 2018. We added rate- controlling agents, removed the VT treatment zone set at 167 bpm (the inappropriate treatment of which was resulting in most of his device-related symptoms) and set a VT monitor zone at 180 and VF treatment zone at 200 bpm Chronic systolic CHF - due to above-noted conditions. 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, following with the Cancer [facility] at [facility] [place] COPD - managed by PCP Hard of hearing Carotid dz - Mild bilateral carotid art disease on carotid u/s of 09/30/19 Discussion and Recomendations Minimally elevated troponin likely secondary to transient hypotension and hypoxia r/t wide spread lung cancer with mets He has opted to forgo treatment for his metastatic lung cancer - he wishes to go home with hospice services, this seems appropriate d/t his wide spread cancer with poor prognosis Arrangements are being made at this time for hospice Resume ASA 81mg daily Continue current medication regimen We would like to thank medical services for this consult TAYLOR COLES Jul 05, 2021 10:32
--- NOTE | 2021-07-05 10:32 | Oncology Consultation ---
Visit Information Visit Information Date of Admission Jul 04, 2021 at 16:45 Attending Physician Nery Bruner MD Admitting Physician Sudhakar Acosta MD Chief Complaint Not feeling good and don't know what to call and showed up at ER. Interval History Mr. 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 He had chemoradiation treatment initially and then disease progressed and he declined further chemotherapy. We then tried immunotherapy Keytruda but he missed multiple treatment for the reason that he was not really interested in the treatment any more. He has disease progressing on immunotherapy. He was last seen at my clinic 01/2021. I discussed with him about the end stage care of the stage IV head neck cancer with lung mets and liver mets. He is now interested in hospice care to help him to stay at home and make comfortable. He is a hard hearing. He had the hearing issues before the chemoradiation and got worse after the chemoradiation. He was admitted this time for hypotension. I consulted the patient on: 07/05/21 10:21 Time Seen by Provider: 10:21 Review of Systems Constitutional: see HPI Health Status Allergies Coded Allergies: No Known Drug Allergies (Unverified , 10/30/18) Home Medications Apixaban (Eliquis) 2.5 Mg Tablet, 2.5 MG PO BID, (Reported) Carvedilol (Carvedilol) 6.25 Mg Tablet, 6.25 MG PO BID WITH MEALS, (Reported) Clopidogrel Bisulfate (Clopidogrel) 75 Mg Tablet, 75 MG PO DAILY, (Reported) Diltiazem HCl (Diltiazem 24Hr ER) 120 Mg Cap.er.24h, 120 MG PO DAILY, (Reported) Ibuprofen/Diphenhydramine Cit (Ibuprofen Pm Caplet) 1 Each Tablet, 1-2 EACH PO HS PRN for SLEEP, (Reported) Lisinopril (Lisinopril) 2.5 Mg Tablet, 2.5 MG PO DAILY, (Reported) KOD-Mgeeyg-Fkakyo Hx Patient Social History Smoking Status: Current Everyday Smoker Type Used: Cigarettes 2nd Hand Smoke Exposure: Yes Recent Hopitalizations: Yes (SEP 2018-PANCREATITIS) Alcohol Use?: No Have you traveled recently?: No Immunizations Up To Date Tetanus Booster (TDap): More than 5yrs Date of Pneumonia Vaccine: Apr 22, 2013 Date of Influenza Vaccine: Apr 21, 2015 Family Medical History Significant Family History: AAA, Heart Disease, Hypertension Family History: ARTERIAL STENTS 19 FATHER Abdominal aortic aneurysm 19 FATHER Alcoholism 19 FATHER Coronary thrombosis 19 FATHER Hypertension 19 FATHER LYMPH NODE CANCEROUS 19 MOTHER Physical Exam Vital Signs Vital Signs - First Documented 07/04/21 10:24 Temp 35.8 Pulse 118 Resp 22 B/P (MAP) 107/67 (80) Pulse Ox 97 O2 Delivery Room Air Capillary Refill : NONE Height, Weight, BMI Height: 5'7.00" Weight: 129lbs. 0.0oz. 58.030323yz; 20.76 BMI Method:Actual General Appearance: No Apparent Distress, Chronically ill, Other HEENT: PERRL/EOMI Neck: Non Tender Respiratory: No Accessory Muscle Use, No Respiratory Distress Extremity: Non Tender, No Calf Tenderness, No Pedal Edema Neurologic/Psychiatric: Alert, Oriented x3, Other (hard hearing) Data Review Labs Laboratory Tests 07/05/21 05:40 Laboratory Tests 07/04/21 10:08: White Blood Count 14.4H, Neutrophils (%) (Auto) 83H, Lymphocytes (%) (Auto) 6L, Neutrophils # (Auto) 12.0H, Lymphocytes # (Auto) 0.8L, Monocytes # (Auto) 1.4H, Carbon Dioxide Level 16L, Anion Gap 19H, Glucose Level 129H, Corrected Calcium 10.5H, Troponin I 0.052H 07/04/21 13:48: Urine Specific [place] 1.010L, Urine Ketones TRACEH, Urine RBC (Auto) TRACE-IH, Urine Crystals PRESENTH, Urine Calcium Oxalate Crystals FEWH, Urine Hyaline Casts 10-25H, Urine Granular Casts 5-10H, Urine Coarse Granular Casts 5-10H, Urine White Blood Cell Casts 0-2H, Urine Mucus SMALLH 07/04/21 14:45: 07/04/21 17:40: Troponin I 0.047H 07/04/21 21:15: Troponin I 0.106H 07/05/21 00:35: Troponin I 0.046H 07/05/21 05:40: Red Blood Count 3.45L, Hemoglobin 11.1#L, Hematocrit 33L, Neutrophils (%) (Auto) 79H, Lymphocytes (%) (Auto) 6L, Monocytes (%) (Auto) 13H, Neutrophils # (Auto) 8.4H, Lymphocytes # (Auto) 0.6L, Monocytes # (Auto) 1.4H, Sodium Level 131L, Carbon Dioxide Level 20L 07/05/21 08:31: Thyroid Stimulating Hormone (TSH) 6.72H Impression & Plan Impression & Plan A/P: 1. 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 Suspect cT3-4 N1 M0, stage III as of 12/2018. Patient declined surgery. 2. Status post 3 cycles of carboplatin and 5-FU administered concurrently with radiation, completed 01/12/19. Cisplatin not used because of his severe hearing loss and comorbidities. 3. One month post treatment scan on 02/13/19 showed improved but persistent disease. 4. Follow-up CT in September 2019 showed left lower lobe lung and new right middle lobe nodule. Biopsy on 10/15/19 showed well-differentiated squamous cell carcinoma strongly positive for p16 ink, suggesting lung nodule is metastasis from the previously noted tonsil carcinoma. 5. Follow up PET scan from 07/12/20 shows the previously noted masses in the right middle lobe and left lower lobe increased in size as well as development of hypermetabolic lymph nodes within the mediastinum and corie suggestive of metastatic disease. Pt was NOT interested in chemotherapy. Dr Gunn started patient Jietruda in 07/2020. Restaging PET CT 11-22-2020 showed disease progressing. Pt declined chemo before and is still not interested in chemotherapy. He wants to stay home and he is open to hospice care. He noticed hospice [facility] in the [place] and he would like to talk to them. 6. Comorbidities including CAD, CHF, SSS with pacemaker, COPD, chronic pancreatitis and tobaccoism. 7. Hypotension: resolved here. 8. Pt can be discharged from hem/onc point of view. LUANNE SANCHEZ MD Jul 05, 2021 10:32
[2021-07-05] MEDS ORDERED: ASPIRIN 81 MG CHEW (CHILDREN'S ASA) PO NR (11:30)
[2021-07-05 12:00] VITALS: BP 116/75
[2021-07-05] MEDS: NICOTINE 21 MG (NICODERM) PATCH TD SCH (13:00)
[2021-07-05] MEDS: HYDROcodone/APAP 5 MG/325 MG (LORTAB) TAB PO PRN (13:07)
--- NOTE | 2021-07-05 13:27 | Consultation-Cardiology ---
HPI-Cardiology Cardiology Consultation: Date of Consultation 07/05/21 Time Seen by a Provider: 13:10 Date of Admission Attending Physician Nery Bruner MD Admitting Physician Sudhakar Acosta MD Consulting Physician VANITA GREGORIO MD, MA, FACP, FACC, FSCAI, CCDS HPI: Chief Complaint: Gen weakness SOB Mr. Eddy is a 60 yr old male admitted to [facility] from the [facility] ED with increasing fatigue, left hip pain and generally feeling unwell. He was found to be hypotensive in the ED. He denies any c/o CP, palpitations, syncope or near syncope. No LE swelling. He states he wishes to go home and would like to speak with Hospice services. He has metastatic lung cancer and does not wish to undergo any aggressive treatment. No c/o n/v/d. No c/o fever or chills. Review of Systems-Cardiology Review of Systems Constitutional: No chills, No fever; malaise, tiredness Eyes: No vision change Ears/Nose/Throat: chronic hearing loss Respiratory: As described under HPI Cardiovascular: As described under HPI Gastrointestinal: As described under HPI Genitourinary: No dysuria, No hematuria Musculoskeletal: As describe under HPI Skin: No rash on exposed areas, No ulcerations on exposed areas Psychiatric/Neurological: No anxiety, No depression, No seizure, No focal weakness Hematologic: No bleeding abnormalities All Other Systems Reviewed Negative Unless Noted: Yes HLL-Xyroah-Jjvpzo Hx Patient Social History Smoking Status: Current Everyday Smoker 2nd Hand Smoke Exposure: Yes Have you traveled recently?: No Alcohol Use?: No Pt feels they are or have been: No Tobacco type used: Cigars Immunizations Up To Date Tetanus Booster (TDap): More than 5yrs Date of Pneumonia Vaccine: Apr 22, 2013 Date of Influenza Vaccine: Apr 21, 2015 Past Medical History PMH As described under Assessment. Family Medical History Family Medical History: He reports his father had CAD, HTN and AAA. Family History: ARTERIAL STENTS 19 FATHER Abdominal aortic aneurysm 19 FATHER Alcoholism 19 FATHER Coronary thrombosis 19 FATHER Hypertension 19 FATHER LYMPH NODE CANCEROUS 19 MOTHER Allergies and Home Medications Allergies Coded Allergies: No Known Drug Allergies (Unverified , 10/30/18) Patient Home Medication List Home Medication List Reviewed: Yes Apixaban (Eliquis) 2.5 Mg Tablet, 2.5 MG PO BID, (Reported) Entered as Reported by: OLIVER GRANADOS on 07/05/21934 Last Action: Reviewed Carvedilol (Carvedilol) 6.25 Mg Tablet, 6.25 MG PO BID WITH MEALS, (Reported) Entered as Reported by: OLIVER GRANADOS on 07/05/21934 Last Action: Reviewed Clopidogrel Bisulfate (Clopidogrel) 75 Mg Tablet, 75 MG PO DAILY, (Reported) Entered as Reported by: OLIVER GRANADOS on 07/05/21934 Last Action: Reviewed Diltiazem HCl (Diltiazem 24Hr ER) 120 Mg Cap.er.24h, 120 MG PO DAILY, (Reported) Entered as Reported by: OLIVER GRANADOS on 07/05/21934 Last Action: Reviewed Ibuprofen/Diphenhydramine Cit (Ibuprofen Pm Caplet) 1 Each Tablet, 1-2 EACH PO HS PRN for SLEEP, (Reported) Entered as Reported by: OLIVER GRANADOS on 07/05/21934 Last Action: Reviewed Lisinopril (Lisinopril) 2.5 Mg Tablet, 2.5 MG PO DAILY, (Reported) Entered as Reported by: BLAIR HANSEN on 09/17/181114 Last Action: Reviewed Discontinued Medications Apixaban (Eliquis) 2.5 Mg Tablet, 2.5 MG PO BID Discontinued Reason: No Longer Taking Prescribed by: MISA NELSON on 12/23/18 1028 Last Action: Discontinued Carvedilol (Carvedilol) 12.5 Mg Tablet, 12.5 MG PO BID, (Reported) Discontinued Reason: No Longer Taking Entered as Reported by: BLAIR HANSEN on 09/17/18 1115 Last Action: Discontinued Clopidogrel Bisulfate (Plavix) 75 Mg Tablet, 75 MG PO DAILY Discontinued Reason: No Longer Taking Prescribed by: VANITA GREGORIO on 11/29/20 1027 Last Action: Discontinued Diltiazem HCl (Cartia Xt) 120 Mg Cap.er.24h, 120 MG PO DAILY, (Reported) Discontinued Reason: No Longer Taking Entered as Reported by: FLOR SHANNON on 11/29/20 0747 Last Action: Discontinued Furosemide (Furosemide) 40 Mg Tablet, 80 MG PO DAILY, (Reported) Discontinued Reason: No Longer Taking Entered as Reported by: BLAIR HANSEN on 12/22/18 0920 Last Action: Discontinued [Potassium] , 20 MG PO PRN, (Reported) Discontinued Reason: No Longer Taking Entered as Reported by: FLOR SHANNON on 11/29/20 0765 Last Action: Discontinued Physical Exam-Cardiology Physical Exam Vital Signs/I&O 07/05/21 07/05/21 07/05/21 07/05/21 03:57 07:00 07:20 08:00 Temp 36.7 36.7 Pulse 86 84 88 Resp 20 20 B/P (MAP) 113/70 (84) 125/82 (96) Pulse Ox 92 91 O2 Delivery Room Air Room Air Room Air 07/05/21 12:00 Temp 37.2 Pulse 90 Resp 22 B/P (MAP) 116/75 (89) Pulse Ox 93 O2 Delivery Room Air 07/05/21 00:00 Intake Total 350 ml Output Total 300 ml Balance 50 ml Capillary Refill : NONE Constitutional: AAO x 3, other (thin) HEENT: hard of hearing, oral hygience is good Neck: No carotid bruit; carotid pulses are 2 + bilaterally Respiratory: No accessory muscle use, No respiratory distress; chest expansion is symmetric, chest is bilaterally symmetric, other (diminished breath sounds; R>L) Cardiovascular: regular rate-rhythm; No JVD; S1 and S2 Gastrointestinal: soft, round, audible bowel sounds Extremities: no lower extremity edema bilateral Neurologic/Psychiatric: grossly intact (moves all extremities) Skin: No rash on exposed areas, No ulcerations on exposed areas Data Review Labs Laboratory Tests 07/04/21 13:48: Urine Color YELLOW, Urine Clarity CLEAR, Urine pH 5.0, Urine Specific [place] 1.010L, Urine Protein NEGATIVE, Urine Glucose (UA) NEGATIVE, Urine Ketones TRACEH, Urine Nitrite NEGATIVE, Urine Bilirubin NEGATIVE, Urine Urobilinogen 0.2, Urine Leukocyte Esterase NEGATIVE, Urine RBC (Auto) TRACE-IH, Urine RBC 0-2 , Urine WBC 2-5, Urine Squamous Epithelial Cells 0-2, Urine Crystals PRESENTH, Urine Calcium Oxalate Crystals FEWH, Urine Bacteria NEGATIVE, Urine Casts PRESENT, Urine Hyaline Casts 10-25H, Urine Granular Casts 5-10H, Urine Coarse Granular Casts 5-10H, Urine White Blood Cell Casts 0-2H, Urine Mucus SMALLH, Urine Culture Indicated NO 07/04/21 14:45: Lactic Acid Level 1.64, Troponin I < 0.30 07/04/21 17:40: Lactic Acid Level 0.98, Troponin I 0.047H 07/04/21 21:15: Troponin I 0.106H 07/05/21 00:35: Troponin I 0.046H 07/05/21 05:40: White Blood Count 10.5, Red Blood Count 3.45L, Hemoglobin 11.1#L, Hematocrit 33L , Mean Corpuscular Volume 97, Mean Corpuscular Hemoglobin 32, Mean Corpuscular Hemoglobin Concent 33, Red Cell Distribution Width 12.8, Platelet Count 282, Mean Platelet Volume 9.9, Immature Granulocyte % (Auto) 1, Neutrophils (%) (Auto) 79H, Lymphocytes (%) (Auto) 6L, Monocytes (%) (Auto) 13H, Eosinophils (%) (Auto) 1, Basophils (%) (Auto) 0, Neutrophils # (Auto) 8.4H, Lymphocytes # (Auto) 0.6L, Monocytes # (Auto) 1.4H, Eosinophils # (Auto) 0.1, Basophils # (Auto) 0.0, Immature Granulocyte # (Auto) 0.1, Sodium Level 131L, Potassium Level 3.9, Chloride Level 102, Carbon Dioxide Level 20L, Anion Gap 9, Blood Urea Nitrogen 12, Creatinine 0.65, Estimat Glomerular Filtration Rate 125, BUN/Creatinine Ratio 18, Glucose Level 104, Calcium Level 9.1 07/05/21 08:31: Thyroid Stimulating Hormone (TSH) 6.72H A/P-Cardiology Assessment/Admission Diagnosis Minimally elevated troponin -likely Type 2 DC secondary to transient hypotension and hypoxia d/t widespread lung cancer Lung Cancer - manged by Dr. Mckeon with metastatic dz to the liver per CTA on 07-04-21 - he has opted to not undergo treatment Syncopal episode - undetermined etiology PAD - Peripheral aniogram of 11-29-20 was as follows: - left subclavian artery was performed and it showed 95% to 99% stenosis in its proximal portion to which we then carried out percutaneous intervention and following deployment of Omnilink 6.0 x 29 mm stent, there is 0% residual stenosis and flow throughout the artery is normal. - Bilateral leg artery angiography showed 70% to 80% stenosis of the common iliac and the external iliac arteries on both sides. The internal iliac arteries on both sides have severe ostial and proximal disease. The common and superficial femoral arteries are intact on both sides. The superficial femoral artery has 30% to 40% stenosis in both sides. The popliteal arteries are intact on both sides. The popliteal arteries trifurcate and have a 3-vessel runoff on both sides. Intermittent noncompliance with meds Nonischemic cardiomyopathy, - likely alcohol-related. - Last cardiac cath was on 09/10/14 by Tyron Conklin DO, at [facility]. It is reported to have shown right dominant cor circulation, 40% stenosis of mid LCX, and minor luminal irreg elsewhere. LVEF was reported to be 60% on that cath of 09/10/14 - Echo of 10/07/19: LVEF 45-50%, mod to sev dilatation of LA, mild to mod MR, mild to mod TR, RVSP 25 mmHg MPI of 10/20/19: Cardiomegaly with global hypokinesis and basal inf akinesis and LVEF 20%, basal inf infarction w/o ischemia NSVT and inducible VT (programmed vent stim on isoproterenol) per EP studies at [place], [place]. - He had an EP Study on 09/13/14 by at [facility]. Diagnosis was severe nonischemic cardiomyopathy and syncope without prodrome and he received a DI[employer]-D ([facility]). - Device functioning normally on interrogation of 03-22-21 - episode in January 2021 of NSVT for which he received an AICD shock - AICD at [facility] in April 2021 - Dr. Gregorio has spoken with Dr. Mckeon of oncology services on 06-21-21 and she feels his prognois is not good and also does not feel AICD will prolonged life expectancy. He does not wish to have pulse gen change out carried out at this time, per lengthy conversation at time of office visit on 06-21-2021. PSVT and PAF with a fast vent response, - leading to inappropriate ICD discharges in early December 2018. We added rate- controlling agents, removed the VT treatment zone set at 167 bpm (the inappropriate treatment of which was resulting in most of his device-related symptoms) and set a VT monitor zone at 180 and VF treatment zone at 200 bpm Chronic systolic CHF - due to above-noted conditions. 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, following with the [facility] [place] COPD - managed by PCP Hard of hearing Carotid dz - Mild bilateral carotid art disease on carotid u/s of 09/30/19 Discussion and Recomendations He has opted to forgo treatment for his metastatic lung cancer - he wishes to go home with hospice services, this seems appropriate d/t his wide spread cancer with poor prognosis Arrangements are being made at this time for hospice Resume ASA 81mg daily Continue current medication regimen We would like to thank medical services for this consult VANITA GREGORIO MD FACP FACC CCDS Jul 05, 2021 13:27
--- NOTE | 2021-07-05 14:07 | History & Physical ---
YANY HERRERA MD 07/05/21 1407: HPI History of Present Illness: 60 year old male with history of CAD, HFrEF s/p AICD, pAF, NSVT, PAD s/p left subclavian stent 11/30 on plavix, metastatic head and neck cancer off of chemotherapy after failing keytruda presented 07/04 for pain and hypotension. Patient reports for the past 3-4 weeks, he has had progressive headache that began in the back of his head, but has now spread to the front unresolved with motrin. He reports worsening hip pain and weakness during this time as well. More recently, he has noted low blood pressure. On Saturday, BP was 60s/50s and similar to this on Saturday. He denies any recent sick contacts or fevers. These symptoms took him to an outside ED where he was found to have temperature of 35.8, WBC 14.4, ECG with paced rhythm and troponin peaking at 0.1. CT showed malignant lesions in bilateral lungs and liver. He was given ASA, 2 L fluid and transferred to this facility for further care. Exam Limitations: no limitations Date seen by provider: Jul 05, 2021 Time Seen by Provider: 07:30 Attending Physician Kanu Cisneros MD PCP Sudhakar Acosta MD Consult Date of Admission Jul 04, 2021 at 16:45 Home Medications Home Medications Reviewed patient Home Medication Reconciliation performed by pharmacy medication reconciliations factory focus technician and/or nursing. Patients Allergies have been reviewed. Allergies Coded Allergies: No Known Drug Allergies (Unverified , 10/30/18) UUK-Iazzsw-Cwkxsi Hx Patient Social History Marrital Status: single Smoking Status: Current Everyday Smoker 2nd Hand Smoke Exposure: Yes Recent Hopitalizations: Yes (SEP 2018-PANCREATITIS) Alcohol Use?: No Tobacco type used: Cigars Have you traveled recently?: No Immunizations Up To Date Tetanus Booster (TDap): More than 5yrs Date of Pneumonia Vaccine: Apr 22, 2013 Date of Influenza Vaccine: Apr 21, 2015 Past Medical History 1. 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 Chronic Alcohol Use 3. Hepatitis C 4. Tobaccoism 5. Non-compliance with follow up and with medications 6. Coronary Artery Disease- mild non-obstructive to left cx 40% per cath 09/26- [place] 7. Mild non obstructive atherosclerotic disease in his legs per cath 09/26 8. Several episodes of sinus tach in the V-Tach zone that required ATP per Device Check 02-27-15 9. COPD Past Surgical History 1. Bi-V ICD implantation [facility] 2. Cardiac Cath 09/26 demonstrating minimal non-obstructive coronary artery disease 40% left cx Family Medical History Significant Family History: AAA, Heart Disease, Hypertension Family History: ARTERIAL STENTS 19 FATHER Abdominal aortic aneurysm 19 FATHER Alcoholism 19 FATHER Coronary thrombosis 19 FATHER Hypertension 19 FATHER LYMPH NODE CANCEROUS 19 MOTHER Review of Systems ([facility]) Constitutional: No chills, No fever; malaise, weakness EENTM: hearing loss Respiratory: cough, short of breath Cardiovascular: No chest pain, No edema, No palpitations Gastrointestinal: No abdominal pain, No constipation; diarrhea Genitourinary: No dysuria Musculoskeletal: back pain, joint pain Psychiatric/Neurological: Headache Reviewed Test Results Reviewed Test Results Lab CBC: WBC 14.4 CMP: Unremarkable Troponin: 0.05 CT imaging Radiology NAME: MELISSA ASENCIO [facility] REC#: [id number] PT STATUS: REG ER : 1960 PHYSICIAN: RAD LLOYD DO ADMIT DATE: 07/04/21/ER FS Signed Date of Exam:07/04/21 CT CHEST/ABDOMEN/PELVIS W PROCEDURE: CT chest, abdomen, and pelvis with contrast. TECHNIQUE: Multiple contiguous axial images were obtained through the chest, abdomen, and pelvis after the administration of intravenous contrast. Auto Exposure Controls were utilized during the CT exam to meet ALARA standards for radiation dose reduction. Date: July 04, 2021. Indication: 60-year-old male, history of lung cancer. Headache for one month. Comparison: Head CT November 22, 2020. Findings: There is a pulmonary nodule in the right lung apex on axial image 9 measuring 9 mm in size which is new since November 22, 2020. There is a subjacent 5 mm right upper lobe pulmonary nodule on axial image 12. There is a right upper lobe pulmonary nodule on axial image 25 measuring up to 1.9 cm in size which is also new. There are multiple additional right upper lobe, right middle lobe, and right lower lobe pulmonary nodules which are also an interval change since comparison exam. There is a right middle lobe mass with involvement and complete opacification of right middle lobe bronchi this is directly extending into the right hilar and subcarinal region and measures roughly 7.7 x 3.7 cm in axial extent. On prior PET/CT on November 22, 2020, this previously was smaller in size and measured 3.1 x 3.0 cm in size. There are multiple left upper lobe and left lower lobe pulmonary nodules and/or masses. There is a left lower lobe mass on axial image 106 measuring 7.6 x 5.5 cm in size. This is increased in size since prior PET/CT and previously measured 5.6 x 4.0 cm in axial extent. The additional pulmonary nodules present are new since prior PET/CT. There are findings of emphysema. There is no pneumothorax. There is no sizable pleural effusion. There is a pleural-based nodule on the right on axial image 110 measuring 2.7 x 1.2 cm in size. There is an anterior mediastinal mass/lymph node measuring 2.9 x 2.7 cm in size on axial image 36. There are confluent abnormally enlarged AP window and left hilar lymph nodes as well as confluent paratracheal, right hilar, and subcarinal adenopathy. This is increased in extent since prior PET/CT on November 22, 2020. There is mass effect on the pulmonary vasculature relating to the above-mentioned masses and/or adenopathy. There is no identified central or segmental pulmonary embolus. The heart is not enlarged. There are coronary artery calcifications. There is no sizable pericardial effusion. There is incidental note of direct origin of the left vertebral artery off the aortic arch. The liver is unremarkable in size and contour. There is an ill-defined low-attenuation lesion in the posterior aspect of the right lobe of liver on axial image 19 measuring 3.4 x 2.3 cm in size. There is no FDG avid lesion at this location on prior PET/CT. The main, right, left portal veins are patent. The gallbladder is unremarkable. There is no identified intrahepatic or extrahepatic bile duct dilation. There are pancreatic parenchymal calcifications consistent with chronic pancreatitis without evidence of acute pancreatitis. There is a 8 mm low-attenuation lesion in the spleen on axial image 12 too small to characterize. The adrenal glands are unremarkable. There is a low-attenuation left renal lesion on axial image 25 which measures 3.7 cm in size with internal attenuation of 10 Hounsfield units. This is consistent with a benign cyst. There is an additional benign left renal cyst on axial image 32. The urinary collecting systems are not distended. The urinary bladder is mildly distended without CT apparent wall thickening. The intestinal tract is not distended. There is no free intraperitoneal air. There is no drainable fluid collection. There is no sizable volume free pelvic fluid. There is a retroaortic left renal vein. There are prominent atherosclerotic calcifications. There is generalized subcutaneous edema. There are multilevel degenerative changes of the spine. There is no identified bone lesion concerning for bone metastasis. Impression: 1. Substantial interval increase in size of the right middle lobe mass involving the right mainstem bronchus and directly extending into the right hilar region compatible with progression of malignancy. 2. Numerous bilateral pulmonary nodules and/or masses with new and/or increased in size since prior PET/CT on November 22, 2020. These likely relate to multiple metastatic lesions. 3. Interval progression of currently extensive mediastinal and hilar adenopathy likely reflecting extensive metastatic flor disease. 4. Nonspecific lesion in the posterior aspect of the right lobe of the liver highly concerning for a metastatic lesion. 5. Findings of chronic pancreatitis without evidence of acute pancreatitis. 6. Benign left renal cysts. Dictated by: Dictated on workstation # [id number] Dict: 07/04/21 1251 Trans: 07/04/21 1545 [facility] [id number] Interpreted by: ESTEPHANIE JOHNSON MD Electronically signed by: ESTEPHANIE JOHNSON MD 07/04/21 1545 NAME: MELISSA ASENCIO [facility] REC#: [id number] PT STATUS: REG ER : 1960 PHYSICIAN: RAD LLOYD DO ADMIT DATE: 07/04/21/ER FS Signed Date of Exam:07/04/21 CT HEAD/NECK WO PROCEDURE: CT head and neck without contrast. TECHNIQUE: Contiguous axial images were obtained from the skull base through the vertex. Noncontrast axial images were then obtained of the soft tissue of the neck. Auto Exposure Controls were utilized during the CT exam to meet ALARA standards for radiation dose reduction. INDICATION: Lung cancer, head pain Study compared with head CT 12/27/2020 CT neck compared 09/18/2019 CT HEAD: There is no hydrocephalus, edema, mass, mass effect or evidence for an elevation of the intracerebral pressures. No sulcal effacement. Basilar cisterns patent. No loss of the cortical martell-white matter differentiations. Orbits, sinuses and calvarium appeared nonacute. There has been no change. CT CERVICAL SPINE: Compared with soft tissue protocol neck CT 09/18/2019, degenerative changes to the discs, endplates, facets and uncovertebral joints on a chronic basis throughout the cervical spine is stable. There is no suspicious lytic or sclerotic bony lesion. No osseous destruction. No findings to suggest cervical spinal involvement by metastatic disease. The right greater than left carotid atherosclerotic vascular calcifications. The central skull base and craniocervical junction appeared unremarkable. There is moderate bony biforaminal stenosis C3-C4 and on the left at C4-C5. Moderate to severe biforaminal stenosis C5-C6 and C6-C7 present. No high-grade canal stenosis. IMPRESSION: CT HEAD: Stable CT head. No acute or suspect finding. CT CERVICAL SPINE: Chronic spondylosis results in multilevel chronic bony foraminal stenoses. No suspicious lytic or sclerotic lesion, fracture or acute cervical spinal pathology. Dictated by: Dictated on workstation # [id number] Dict: 07/04/21 1258 Trans: 07/04/21 1544 [facility] [id number] Interpreted by: TESS ALMAGUER Electronically signed by: TESS ALMAGUER 07/04/21 1544 Physical Exam-([facility]) Physical Exam Vital Signs VS - Last 72 Hours, by Label 07/04/21 07/04/21 07/04/21 07/04/21 10:24 14:41 16:45 17:00 Temp 35.8 36.5 Pulse 118 81 80 Resp 22 18 18 B/P (MAP) 107/67 (80) 107/70 111/67 (82) Pulse Ox 97 97 97 95 O2 Delivery Room Air Room Air Room Air Room Air 07/04/21 07/04/21 07/04/21 07/04/21 18:01 19:00 19:45 20:00 Temp 37.7 Pulse 83 93 90 Resp 22 B/P (MAP) 102/62 (75) Pulse Ox 92 O2 Delivery Room Air Room Air 07/04/21 07/04/21 07/05/21 07/05/21 20:45 23:40 01:00 03:57 Temp 36.6 36.7 Pulse 90 95 89 86 Resp 22 20 B/P (MAP) 117/58 (77) 113/70 (84) Pulse Ox 92 92 O2 Delivery Room Air Room Air 07/05/21 07/05/21 07/05/21 07/05/21 07:00 07:20 08:00 12:00 Temp 36.7 37.2 Pulse 84 88 90 Resp 20 22 B/P (MAP) 125/82 (96) 116/75 (89) Pulse Ox 91 93 O2 Delivery Room Air Room Air Room Air Capillary Refill : NONE General Appearance: WD/WN, no apparent distress, cachetic HEENT: pharynx normal Neck: non-tender, full range of motion Respiratory: lungs clear (Diminished at left base), no respiratory distress, no accessory muscle use Cardiovascular: regular rate, rhythm, no edema, no gallop, no murmur Gastrointestinal: normal bowel sounds, non tender, soft Extremities: normal range of motion Neurologic/Psychiatric: alert, oriented x 3 Skin: normal color, warm/dry Assessment/Plan Assessment/Plan Admission Dx Metastatic Squamous Cell Carcinoma Admission Status: Inpatient Order (span 2 midnights) Reason for Inpatient Admission: Metastatic Squamous Cell Carcinoma (1) Metastatic squamous cell carcinoma Status: Acute Assessment & Plan: 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 Patient has elected to pursue hospice, which is appropriate and on discussion of code status, would like to be DNR. -Code status changed -Pain/anxiety control while admitted -Plan for home with hospice once services set up (2) Hypotension Status: Acute Assessment & Plan: Recently, has been down-titrated GDMT 2/2 hypotension with SBP reported in 60s in days prior to admission, stable here off of anti- hypertensives. Qualifiers: Qualified Codes: I95.9 - Hypotension, unspecified (3) Elevated troponin level Status: Acute Assessment & Plan: History of CAD presenting with troponin peaking at 1. Suspect demand ischemia in setting of hypotension. Patient to pursue hospice, no further evaluation warranted. (4) Leukocytosis Status: Acute Assessment & Plan: 14.4 on admission in the setting of metastatic cancer without infectious symptoms. (5) Chronic systolic (congestive) heart failure Status: Chronic Assessment & Plan: Most recent echo with EF 45-50% with known CAD. Holding GDMT in setting of hypotension. -Could defibrillator function of AICD be turned off? (6) Hyponatremia Assessment & Plan: 131 in setting of HFrEF, pulmonary involvement of cancer. Suspect HFrEF vs SIADH induced. No need to follow labs given this is mild and not in line with goals of care. (7) Tobacco abuse Onset Date: Unknown Status: Chronic Assessment & Plan: Declined nicotine patch. (8) Atrial fibrillation Assessment & Plan: History of AF on eluquis outpatient, will hold here given goals of care. (9) NSVT (nonsustained ventricular tachycardia) Assessment & Plan: History of NSVT on amiodarone 400 mg BID with AICD in place. -Continue amiodarone 400 mg BID -Will discuss defibrillator function with cardiology KANU CISNEROS MD 07/05/21 6007: Home Medications Allergies Coded Allergies: No Known Drug Allergies (Unverified , 10/30/18) SSP-Gbcgyg-Hycxoj Hx Family Medical History Family History: ARTERIAL STENTS 19 FATHER Abdominal aortic aneurysm 19 FATHER Alcoholism 19 FATHER Coronary thrombosis 19 FATHER Hypertension 19 FATHER LYMPH NODE CANCEROUS 19 MOTHER Supervisory-Addendum Brief Supervisory Addendum I personally have seen and evaluated the patient and I agree with the documented assessment and plan by PGY3 Jose D Herrera MD. YANY HERRERA MD Jul 05, 2021 14:07 KANU CISNEROS MD Jul 05, 2021 18:57
[2021-07-05 15:20] VITALS: BP 107/75
[2021-07-05] MEDS: LACTATED RINGERS 1,000 ML IV SCH (17:15)
[2021-07-05 19:42] VITALS: BP 115/68
[2021-07-05 23:53] VITALS: BP 117/77
[2021-07-06] MEDS: LACTATED RINGERS 1,000 ML IV SCH (00:07)
[2021-07-06] MEDS: ACETAMINOPHEN 325 MG TABLET PO SCH ×4 (00:08→17:55)
[2021-07-06] MEDS: fentaNYL INJ 100 MCG/2 ML AMP IV PRN ×4 (00:10→21:12)
[2021-07-06 03:42] VITALS: BP 128/80
[2021-07-06 07:39] VITALS: BP 110/77
[2021-07-06] MEDS: AMIODARONE 200 MG (CORDARONE) TAB PO SCH ×2 (08:12→20:04)
[2021-07-06] MEDS: ASPIRIN 81 MG CHEW (CHILDREN'S ASA) PO SCH (08:12)
[2021-07-06] MEDS: NICOTINE 21 MG (NICODERM) PATCH TD SCH (09:08)
[2021-07-06] MEDS: NICOTINE PATCH REMOVAL TP SCH (09:08)
--- NOTE | 2021-07-06 09:23 | Cardiology Progress Note ---
Subjective Date Seen by Provider: Jul 06, 2021 Time Seen by Provider: 09:20 Subjective/Events-last exam Patient was seen at bedside, sitting comfortably, having shortness of breath and cough. Review of Systems General: No Chills, No Night Sweats; Fatigue, Malaise; No Appetite, No Other HEENT: No Head Aches, No Visual Changes, No Eye Pain, No Ear Pain, No Dysphasia, No Sinus Congestion, No Post Nasal Drip, No Sore Throat, No Other Pulmonary: Dyspnea, Cough; No Pleuritic Chest Pain, No Other Cardiovascular: No: Chest Pain, Palpitations, Orthopnea, Paroxysmal Noc. Dyspnea, Edema, Lt Headedness, Other Focused Exam Lactate Level 07/04/21 14:45: Lactic Acid Level 1.64 07/04/21 17:40: Lactic Acid Level 0.98 Objective-Cardiology Exam Last Set of Vital Signs Vital Signs 07/06/21 07/06/21 07:39 08:45 Temp 36.6 Pulse 94 Resp 20 B/P (MAP) 110/77 (88) Pulse Ox 93 O2 Delivery Room Air I&O Intake and Output 07/06/21 00:00 Intake Total 1150 ml Output Total 1150 ml Balance 0 ml Intake Oral 1150 ml Output Urine Total 1150 ml General: Alert, Oriented X3, Cooperative HEENT: Atraumatic, PERRLA Neck: Supple, No JVD, No Thyromegaly Lungs: Normal Air Movement, Other (Bilateral rhonchi) Heart: Regular Rate, Normal S1, Normal S2, No Murmurs Abdomen: Normal Bowel Sounds, Soft, No Tenderness, No Hepatosplenomegaly, No Masses Extremities: No Clubbing, No Cyanosis, No Edema, Normal Pulses, No Tenderness/Swelling Skin: No Rashes, No Breakdown, No Significant Lesion Neuro: Normal Gait, Normal Speech, Strength at 5/5 X4 Ext, Normal Tone, Sensation Intact Psych/Mental Status: Mental Status NL, Mood NL A/P-Cardiology Admission Diagnosis Syncope Hypotension Metastatic lung cancer Peripheral arterial disease Assessment/Plan Minimally elevated troponin -likely Type 2 TN secondary to transient hypotension and hypoxia d/t widespread lung cancer Conservative management is recommended, continue to monitor Lung Cancer - manged by Dr. Mckeon with metastatic dz to the liver per CTA on 07-04-21 - he has opted to not undergo treatment Syncopal episode - undetermined etiology, probably secondary to hypotension, no further episodes of syncope were reported. Continue to monitor PAD - Peripheral aniogram of 11-29-20 was as follows: - left subclavian artery was performed and it showed 95% to 99% stenosis in its proximal portion to which we then carried out percutaneous intervention and following deployment of Omnilink 6.0 x 29 mm stent, there is 0% residual stenosis and flow throughout the artery is normal. - Bilateral leg artery angiography showed 70% to 80% stenosis of the common iliac and the external iliac arteries on both sides. The internal iliac arteries on both sides have severe ostial and proximal disease. The common and superficial femoral arteries are intact on both sides. The superficial femoral artery has 30% to 40% stenosis in both sides. The popliteal arteries are intact on both sides. The popliteal arteries trifurcate and have a 3-vessel runoff on both sides. Intermittent noncompliance with meds Nonischemic cardiomyopathy, - likely alcohol-related. - Last cardiac cath was on 09/10/14 by Tyron Conklin DO, at [facility]. It is reported to have shown right dominant cor circulation, 40% stenosis of mid LCX, and minor luminal irreg elsewhere. LVEF was reported to be 60% on that cath of 09/10/14 - Echo of 10/07/19: LVEF 45-50%, mod to sev dilatation of LA, mild to mod MR, mild to mod TR, RVSP 25 mmHg MPI of 10/20/19: Cardiomegaly with global hypokinesis and basal inf akinesis and LVEF 20%, basal inf infarction w/o ischemia NSVT and inducible VT (programmed vent stim on isoproterenol) per EP studies at [place], [place]. - He had an EP Study on 09/13/14 by at [facility]. Diagnosis was severe nonischemic cardiomyopathy and syncope without prodrome and he received a [employer]ER-D ([facility]). - Device functioning normally on interrogation of 03-22-21 - episode in January 2021 of NSVT for which he received an AICD shock - AICD at [facility] in April 2021 - Dr. Gregorio has spoken with Dr. Mckeon of oncology services on 06-21-21 and she feels his prognois is not good and also does not feel AICD will prolonged life expectancy. He does not wish to have pulse gen change out carried out at this time, per lengthy conversation at time of office visit on 06-21-2021. PSVT and PAF with a fast vent response, - leading to inappropriate ICD discharges in early December 2018. We added rate- controlling agents, removed the VT treatment zone set at 167 bpm (the inappropriate treatment of which was resulting in most of his device-related symptoms) and set a VT monitor zone at 180 and VF treatment zone at 200 bpm Chronic systolic CHF - due to above-noted conditions. 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, following with the [facility] [place], [place] COPD - managed by PCP Hard of hearing Carotid dz - Mild bilateral carotid art disease on carotid u/s of 09/30/19 MAYRA ALVARENGA MD Jul 06, 2021 09:23
--- NOTE | 2021-07-06 10:46 | Progress Note ---
YANY HERRERA MD 07/06/21 1046: Subjective Subjective/Events-last exam No acute events overnight. Patient reports continued left hip pain primarily, worse with ambulation, relieved with IV fentanyl. Otherwise, no new CP, SOB, abdominal pain. He has not had a BM. Patient reports he would like to have a cane when he goes home. Focused Exam Lactate Level 07/04/21 14:45: Lactic Acid Level 1.64 07/04/21 17:40: Lactic Acid Level 0.98 Objective Exam Last Set of Vital Signs Vital Signs Date Time Temp Pulse Resp B/P (MAP) Pulse Ox O2 Delivery O2 Flow Rate FiO2 07/06/21 08:45 Room Air 07/06/21 07:39 36.6 94 20 110/77 (88) 93 Capillary Refill : NONE I&O Intake and Output 07/06/21 00:00 Intake Total 1150 ml Output Total 1150 ml Balance 0 ml Intake Oral 1150 ml Output Urine Total 1150 ml General: Alert, Oriented X3 HEENT: Atraumatic Neck: Supple Lungs: Other (Diminished left lung base. ) Heart: Regular Rate, Normal S1, Normal S2, No Murmurs Abdomen: Normal Bowel Sounds Extremities: No Edema Skin: No Rashes Psych/Mental Status: Mental Status NL Results/Procedures Radiology NAME: MELISSA ASENCIO [facility] REC#: [id number] PT STATUS: REG ER : 1960 PHYSICIAN: RAD LLOYD DO ADMIT DATE: 07/04/21/ER FS Signed Date of Exam:07/04/21 CT CHEST/ABDOMEN/PELVIS W PROCEDURE: CT chest, abdomen, and pelvis with contrast. TECHNIQUE: Multiple contiguous axial images were obtained through the chest, abdomen, and pelvis after the administration of intravenous contrast. Auto Exposure Controls were utilized during the CT exam to meet ALARA standards for radiation dose reduction. Date: July 04, 2021. Indication: 60-year-old male, history of lung cancer. Headache for one month. Comparison: Head CT November 22, 2020. Findings: There is a pulmonary nodule in the right lung apex on axial image 9 measuring 9 mm in size which is new since November 22, 2020. There is a subjacent 5 mm right upper lobe pulmonary nodule on axial image 12. There is a right upper lobe pulmonary nodule on axial image 25 measuring up to 1.9 cm in size which is also new. There are multiple additional right upper lobe, right middle lobe, and right lower lobe pulmonary nodules which are also an interval change since comparison exam. There is a right middle lobe mass with involvement and complete opacification of right middle lobe bronchi this is directly extending into the right hilar and subcarinal region and measures roughly 7.7 x 3.7 cm in axial extent. On prior PET/CT on November 22, 2020, this previously was smaller in size and measured 3.1 x 3.0 cm in size. There are multiple left upper lobe and left lower lobe pulmonary nodules and/or masses. There is a left lower lobe mass on axial image 106 measuring 7.6 x 5.5 cm in size. This is increased in size since prior PET/CT and previously measured 5.6 x 4.0 cm in axial extent. The additional pulmonary nodules present are new since prior PET/CT. There are findings of emphysema. There is no pneumothorax. There is no sizable pleural effusion. There is a pleural-based nodule on the right on axial image 110 measuring 2.7 x 1.2 cm in size. There is an anterior mediastinal mass/lymph node measuring 2.9 x 2.7 cm in size on axial image 36. There are confluent abnormally enlarged AP window and left hilar lymph nodes as well as confluent paratracheal, right hilar, and subcarinal adenopathy. This is increased in extent since prior PET/CT on November 22, 2020. There is mass effect on the pulmonary vasculature relating to the above-mentioned masses and/or adenopathy. There is no identified central or segmental pulmonary embolus. The heart is not enlarged. There are coronary artery calcifications. There is no sizable pericardial effusion. There is incidental note of direct origin of the left vertebral artery off the aortic arch. The liver is unremarkable in size and contour. There is an ill-defined low-attenuation lesion in the posterior aspect of the right lobe of liver on axial image 19 measuring 3.4 x 2.3 cm in size. There is no FDG avid lesion at this location on prior PET/CT. The main, right, left portal veins are patent. The gallbladder is unremarkable. There is no identified intrahepatic or extrahepatic bile duct dilation. There are pancreatic parenchymal calcifications consistent with chronic pancreatitis without evidence of acute pancreatitis. There is a 8 mm low-attenuation lesion in the spleen on axial image 12 too small to characterize. The adrenal glands are unremarkable. There is a low-attenuation left renal lesion on axial image 25 which measures 3.7 cm in size with internal attenuation of 10 Hounsfield units. This is consistent with a benign cyst. There is an additional benign left renal cyst on axial image 32. The urinary collecting systems are not distended. The urinary bladder is mildly distended without CT apparent wall thickening. The intestinal tract is not distended. There is no free intraperitoneal air. There is no drainable fluid collection. There is no sizable volume free pelvic fluid. There is a retroaortic left renal vein. There are prominent atherosclerotic calcifications. There is generalized subcutaneous edema. There are multilevel degenerative changes of the spine. There is no identified bone lesion concerning for bone metastasis. Impression: 1. Substantial interval increase in size of the right middle lobe mass involving the right mainstem bronchus and directly extending into the right hilar region compatible with progression of malignancy. 2. Numerous bilateral pulmonary nodules and/or masses with new and/or increased in size since prior PET/CT on November 22, 2020. These likely relate to multiple metastatic lesions. 3. Interval progression of currently extensive mediastinal and hilar adenopathy likely reflecting extensive metastatic flor disease. 4. Nonspecific lesion in the posterior aspect of the right lobe of the liver highly concerning for a metastatic lesion. 5. Findings of chronic pancreatitis without evidence of acute pancreatitis. 6. Benign left renal cysts. Dictated by: Dictated on workstation # [id number] Dict: 07/04/21 1251 Trans: 07/04/21 1545 [facility] [id number] Interpreted by: ESTEPHANIE JOHNSON MD Electronically signed by: ESTEPHANIE JOHNSON MD 07/04/21 1544 NAME: MELISSA ASENCIO [facility] REC#: [id number] PT STATUS: REG ER : 1960 PHYSICIAN: RAD LLOYD DO ADMIT DATE: 07/04/21/ER FS Signed Date of Exam:07/04/21 CT HEAD/NECK WO PROCEDURE: CT head and neck without contrast. TECHNIQUE: Contiguous axial images were obtained from the skull base through the vertex. Noncontrast axial images were then obtained of the soft tissue of the neck. Auto Exposure Controls were utilized during the CT exam to meet ALARA standards for radiation dose reduction. INDICATION: Lung cancer, head pain Study compared with head CT 12/27/2020 CT neck compared 09/18/2019 CT HEAD: There is no hydrocephalus, edema, mass, mass effect or evidence for an elevation of the intracerebral pressures. No sulcal effacement. Basilar cisterns patent. No loss of the cortical martell-white matter differentiations. Orbits, sinuses and calvarium appeared nonacute. There has been no change. CT CERVICAL SPINE: Compared with soft tissue protocol neck CT 09/18/2019, degenerative changes to the discs, endplates, facets and uncovertebral joints on a chronic basis throughout the cervical spine is stable. There is no suspicious lytic or sclerotic bony lesion. No osseous destruction. No findings to suggest cervical spinal involvement by metastatic disease. The right greater than left carotid atherosclerotic vascular calcifications. The central skull base and craniocervical junction appeared unremarkable. There is moderate bony biforaminal stenosis C3-C4 and on the left at C4-C5. Moderate to severe biforaminal stenosis C5-C6 and C6-C7 present. No high-grade canal stenosis. IMPRESSION: CT HEAD: Stable CT head. No acute or suspect finding. CT CERVICAL SPINE: Chronic spondylosis results in multilevel chronic bony foraminal stenoses. No suspicious lytic or sclerotic lesion, fracture or acute cervical spinal pathology. 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 Patient has elected to pursue hospice, which is appropriate and on discussion of code status, would like to be DNR. -Pain/anxiety control while admitted -Plan for home with [facility] tomorrow (2) Hypotension Status: Acute Assessment & Plan: Recently, has been down-titrated GDMT 2/2 hypotension with SBP reported in 60s in days prior to admission, stable here off of anti-hypertensives. Qualifiers: Qualified Codes: I95.9 - Hypotension, unspecified (3) Elevated troponin level Status: Acute Assessment & Plan: History of CAD presenting with troponin peaking at 1. Suspect demand ischemia in setting of hypotension. Patient to pursue hospice, no further evaluation warranted. (4) Leukocytosis Status: Acute Assessment & Plan: 14.4 on admission in the setting of metastatic cancer without infectious symptoms. Not rechecking labs. (5) Chronic systolic (congestive) heart failure Status: Chronic Assessment & Plan: Most recent echo with EF 45-50% with known CAD. Holding GDMT in setting of hypotension. -Could defibrillator function of AICD be turned off? Will speak with cardiology. (6) Hyponatremia Assessment & Plan: 131 in setting of HFrEF, pulmonary involvement of cancer. Suspect HFrEF vs SIADH induced. No need to follow labs given this is mild and not in line with goals of care. (7) Tobacco abuse Onset Date: Unknown Status: Chronic Assessment & Plan: Declined nicotine patch. (8) Atrial fibrillation Assessment & Plan: History of AF on eluquis outpatient, will hold here given goals of care. (9) NSVT (nonsustained ventricular tachycardia) Assessment & Plan: History of NSVT on amiodarone 400 mg BID with AICD in place. -Continue amiodarone 400 mg BID -Will discuss defibrillator function with cardiology KANU CISNEROS MD 07/06/21 1109: Supervisory-Addendum Brief Supervisory Addendum I personally have seen and evaluated the patient and discussed the assessment and plan and agree with documentation by PGY3 Jose D Herrera MD. YANY HERRERA MD Jul 06, 2021 10:46 KANU CISNEROS MD Jul 06, 2021 11:09
--- NOTE | 2021-07-06 11:33 | Diagnostic Imaging Report ---
EXAMINATION: Left hip unilateral 2 or 3 views (w/pelvis when done) HISTORY: Joint pain COMPARISON: None available. FINDINGS: Alignment is normal. No fracture is seen. Joint spaces are normal. IMPRESSION: 1. No fracture. Dictated by: Dictated on workstation # [id number]
[2021-07-06 11:34] VITALS: BP 111/76
[2021-07-06 16:00] VITALS: BP 117/76
[2021-07-06] MEDS: HYDROcodone/APAP 5 MG/325 MG (LORTAB) TAB PO PRN (18:34)
[2021-07-06 19:41] VITALS: BP 108/73
[2021-07-06] MEDS: SENNOSIDES 8.6 MG (SENOKOT) TAB PO SCH (20:04)
[2021-07-07 00:30] VITALS: BP 110/75
[2021-07-07] MEDS: ACETAMINOPHEN 325 MG TABLET PO SCH ×2 (01:03→05:15)
[2021-07-07] MEDS: HYDROcodone/APAP 5 MG/325 MG (LORTAB) TAB PO PRN ×3 (01:03→10:12)
[2021-07-07] MEDS: LACTATED RINGERS 1,000 ML IV SCH (01:04)
[2021-07-07] MEDS: fentaNYL INJ 100 MCG/2 ML AMP IV PRN ×3 (02:01→10:41)
[2021-07-07 03:20] VITALS: BP 114/74
[2021-07-07 08:00] VITALS: BP 127/68
[2021-07-07] MEDS: polyethylene glycoL POWDER 17 GM (MIRALAX) PACK PO SCH ×3 (09:50→10:29)
[2021-07-07] MEDS ORDERED: ACHD5005 PO (10:00)
--- NOTE | 2021-07-07 10:02 | Discharge Summary ---
Discharge [facility] Discharge Medications New, Converted or Re-Newed RX: Transmitted to Pharmacy New Medications: Hydrocodone Bit/Acetaminophen (HYDROcodone/APAP 5 MG/325 MG TAB) 1 Tab Tab 1-2 EA PO Q4H PRN for PAIN-MODERATE (5-7), #30 TAB 0 Refills Continued Medications: Ibuprofen/Diphenhydramine Cit (Ibuprofen Pm Caplet) 1 Each Tablet 1-2 EACH PO HS PRN for SLEEP, TAB Discontinued Medications: Apixaban (Eliquis) 2.5 Mg Tablet 2.5 MG PO BID, TAB Carvedilol (Carvedilol) 6.25 Mg Tablet 6.25 MG PO BID WITH MEALS, TAB Clopidogrel Bisulfate (Clopidogrel) 75 Mg Tablet 75 MG PO DAILY, TAB Diltiazem HCl (Diltiazem 24Hr ER) 120 Mg Cap.er.24h 120 MG PO DAILY, CAP Lisinopril (Lisinopril) 2.5 Mg Tablet 2.5 MG PO DAILY, TAB Patient Instructions Goal/Follow Up Appt: Patient discharged with hospice services through [facility]. Activity & Diet Discharge Diet: No Restrictions Activity as Tolerated: Yes KANU CISNEROS MD Jul 07, 2021 10:02
[2021-07-07] MEDS: AMIODARONE 200 MG (CORDARONE) TAB PO SCH (10:12)
[2021-07-07] MEDS: SENNOSIDES 8.6 MG (SENOKOT) TAB PO SCH (10:12)
[2021-07-07] MEDS: ASPIRIN 81 MG CHEW (CHILDREN'S ASA) PO SCH (10:12)
[2021-07-07] MEDS: NICOTINE 21 MG (NICODERM) PATCH TD SCH (10:13)
[2021-07-07] MEDS: NICOTINE PATCH REMOVAL TP SCH (10:13)
--- NOTE | 2021-07-07 10:27 | Cardiology Progress Note ---
Subjective Date Seen by Provider: Jul 07, 2021 Time Seen by Provider: 10:26 Subjective/Events-last exam Patient was seen at bedside, reporting that he is going home, still having shortness of breath and cough Review of Systems General: No Chills, No Night Sweats; Fatigue; No Malaise, No Appetite, No Other HEENT: No Head Aches, No Visual Changes, No Eye Pain, No Ear Pain, No Dys phasia, No Sinus Congestion, No Post Nasal Drip, No Sore Throat, No Other Pulmonary: Dyspnea; No Cough, No Pleuritic Chest Pain, No Other Cardiovascular: No: Chest Pain, Palpitations, Orthopnea, Paroxysmal Noc. D yspnea, Edema, Lt Headedness, Other Focused Exam Lactate Level 07/04/21 14:45: Lactic Acid Level 1.64 07/04/21 17:40: Lactic Acid Level 0.98 Objective-Cardiology Exam Last Set of Vital Signs Vital Signs 07/07/21 07/07/21 08:00 09:00 Temp 36.2 Pulse 81 Resp 20 B/P (MAP) 127/68 (87) Pulse Ox 92 O2 Delivery Room Air I&O Intake and Output 07/07/21 00:00 Intake Total 1790 ml Output Total 450 ml Balance 1340 ml Intake Oral 790 ml IV Total 1000 ml Output Urine Total 450 ml # Voids 3 # Bowel Movements 1 General: Alert, Oriented X3 HEENT: Atraumatic Neck: Supple Lungs: Other (Diminished left lung base. ) Heart: Regular Rate, Normal S1, Normal S2, No Murmurs Abdomen: Normal Bowel Sounds Extremities: No Edema Skin: No Rashes Neuro: Normal Gait, Normal Speech, Strength at 5/5 X4 Ext, Normal Tone, Sensation Intact Psych/Mental Status: Mental Status NL A/P-Cardiology Admission Diagnosis Syncope Hypotension Metastatic lung cancer Peripheral arterial disease Assessment/Plan Minimally elevated troponin -likely Type 2 HI secondary to transient hypotension and hypoxia d/t widespread lung cancer Conservative management is recommended, continue to monitor Lung Cancer - manged by Dr. Mckeon with metastatic dz to the liver per CTA on 07-04-21 - he has opted to not undergo treatment Syncopal episode - undetermined etiology, probably secondary to hypotension, no further episodes of syncope were reported. Continue to monitor PAD - Peripheral aniogram of 11-29-20 was as follows: - left subclavian artery was performed and it showed 95% to 99% stenosis in its proximal portion to which we then carried out percutaneous intervention and following deployment of Omnilink 6.0 x 29 mm stent, there is 0% residual stenosis and flow throughout the artery is normal. - Bilateral leg artery angiography showed 70% to 80% stenosis of the common iliac and the external iliac arteries on both sides. The internal iliac arteries on both sides have severe ostial and proximal disease. The common and superficial femoral arteries are intact on both sides. The superficial femoral artery has 30% to 40% stenosis in both sides. The popliteal arteries are intact on both sides. The popliteal arteries trifurcate and have a 3-vessel runoff on both sides. Intermittent noncompliance with meds Nonischemic cardiomyopathy, - likely alcohol-related. - Last cardiac cath was on 09/10/14 by Tyron Conklin DO, at [facility]. It is reported to have shown right dominant cor circulation, 40% stenosis of mid LCX, and minor luminal irreg elsewhere. LVEF was reported to be 60% on that cath of 09/10/14 - Echo of 10/07/19: LVEF 45-50%, mod to sev dilatation of LA, mild to mod MR, mild to mod TR, RVSP 25 mmHg MPI of 10/20/19: Cardiomegaly with global hypokinesis and basal inf akinesis and LVEF 20%, basal inf infarction w/o ischemia NSVT and inducible VT (programmed vent stim on isoproterenol) per EP studies at [place], [place]. - He had an EP Study on 09/13/14 by at [facility]. Diagnosis was severe nonischemic cardiomyopathy and syncope without prodrome and he received a [employer]-D ([facility]). - Device functioning normally on interrogation of 03-22-21 - episode in January 2021 of NSVT for which he received an AICD shock - AICD at [facility] in April 2021 - Dr. Gregorio has spoken with Dr. Mckeon of oncology services on 06-21-21 and she feels his prognois is not good and also does not feel AICD will prolonged life expectancy. He does not wish to have pulse gen change out carried out at this time, per lengthy conversation at time of office visit on 06-21-2021. PSVT and PAF with a fast vent response, - leading to inappropriate ICD discharges in early December 2018. We added rate- controlling agents, removed the VT treatment zone set at 167 bpm (the inappropriate treatment of which was resulting in most of his device-related symptoms) and set a VT monitor zone at 180 and VF treatment zone at 200 bpm Chronic systolic CHF - due to above-noted conditions. 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, following with [facility] [place] [place] COPD - managed by PCP Hard of hearing Carotid dz - Mild bilateral carotid art disease on carotid u/s of 09/30/19 MAYRA ALVARENGA MD Jul 07, 2021 10:27
--- NOTE | 2021-07-07 10:35 | Discharge Summary ---
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 On goals of care discussion, patient elected to pursue hospice and was discharged home with [facility] hosp[facility] on 07/07. Given hydrocodone at discharge to manage chronic hip pain. (2) Hypotension Status: Acute Assessment & Plan: Recently, has been down-titrated GDMT 2/2 hypotension with SBP reported in 60s in days prior to admission, stable while admitted off of anti-hypertensives. Qualifiers: Qualified Codes: I95.9 - Hypotension, unspecified (3) Elevated troponin level Status: Acute Assessment & Plan: History of CAD presenting with troponin peaking at 1. Suspect demand ischemia in setting of hypotension. Patient to pursue hospice, no further evaluation warranted. (4) Leukocytosis Status: Acute Assessment & Plan: 14.4 on admission in the setting of metastatic cancer without infectious symptoms. No fever while admitted. (5) Chronic systolic (congestive) heart failure Status: Chronic Assessment & Plan: Most recent echo with EF 45-50% with known CAD. Holding GDMT in setting of hypotension. AICD in place. Per discussion with social work who spoke with cardiology, AICD not expected to discharge should patient's rhythm change. (6) Hyponatremia Assessment & Plan: 131 in setting of HFrEF, pulmonary involvement of cancer. Suspect HFrEF vs SIADH induced. Labs not followed during admission. (7) Tobacco abuse Onset Date: Unknown Status: Chronic Assessment & Plan: Declined nicotine patch. (8) Atrial fibrillation Assessment & Plan: History of AF on eluquis outpatient, discontinued given goals of care. (9) NSVT (nonsustained ventricular tachycardia) Assessment & Plan: History of NSVT previously on amiodarone with AICD in place. Amiodarone discontinued at discharge. Hospital Course Date of Admission: Jul 04, 2021 at 16:45 Admission Diagnosis : Family Physician/Provider: Sudhakar Acosta MD Date of Discharge: 07/07/21 Discharge Diagnosis: Metastatic Head and Neck Cancer HFrEF NSVT pAF PAD Tobaccoism Hospital Course: See problem list Labs and Pending Lab Test: None Home Meds Active HYDROcodone/APAP 5 MG/325 MG TAB (Acetaminophen/Hydrocodone Bitart) 1 Tab Tab 1-2 Ea PO Q4H PRN Reported Ibuprofen Pm Caplet (Ibuprofen/Diphenhydramine Cit) 1 Each Tablet 1-2 Each PO HS PRN Assessment/Pt DC Instructions Patient to follow with [facility] and PCP Discharge Diet: No Restrictions Discharge Physical Examination Allergies: Coded Allergies: No Known Drug Allergies (Unverified , 10/30/18) General Appearance: No Apparent Distress, Cachetic HEENT: Pharynx Normal Respiratory: Chest Non Tender, No Accessory Muscle Use, No Respiratory Distress Cardiovascular: Regular Rate, Rhythm, No Edema, No Murmur Gastrointestinal: Normal Bowel Sounds, Non Tender, Soft Extremity: No Pedal Edema Skin: Normal Color, Warm/Dry Neurologic/Psychiatric: Alert, Oriented x3 KANU CISNEROS MD 07/07/21 1044: Discharge Summary Discharge Physical Examination Allergies: Coded Allergies: No Known Drug Allergies (Unverified , 10/30/18) Supervisory-Addendum Brief Supervisory Addendum I personally have seen and evaluated the patient and agree with the discharge summary as documented by PGY3 Jose D Sylvester MD. YANY SYLVESTER MD Jul 07, 2021 10:32 KANU CISNEROS MD Jul 07, 2021 10:44
== END 2021-07-07 11:09 | disposition hospice, home (50) | DRG 180 ==
LOC: EDUNIT# 09:42 → ER FS 09:43 → 4TH 16:45
PROVIDERS: ADMIT Family Medicine; ATTEND Family Medicine
DX: C78.01 Secondary malignant neoplasm of right lung (principal); I21.A1 Myocardial infarction type 2; C78.7 Secondary malignant neoplasm of liver and intrahepatic bile duct; I42.6 Alcoholic cardiomyopathy; I50.22 Chronic systolic (congestive) heart failure; I47.1 Supraventricular tachycardia; K86.1 Other chronic pancreatitis; E87.1 Hypo-osmolality and hyponatremia; Z66 Do not resuscitate; C78.02 Secondary malignant neoplasm of left lung; I95.89 Other hypotension; R09.02 Hypoxemia; J43.9 Emphysema, unspecified; F17.210 Nicotine dependence, cigarettes, uncomplicated; I25.10 Atherosclerotic heart disease of native coronary artery without angina pectoris; I11.0 Hypertensive heart disease with heart failure; I49.5 Sick sinus syndrome; I48.0 Paroxysmal atrial fibrillation; B19.20 Unspecified viral hepatitis C without hepatic coma; H54.7 Unspecified visual loss; H91.90 Unspecified hearing loss, unspecified ear; I70.8 Atherosclerosis of other arteries; I70.203 Unspecified atherosclerosis of native arteries of extremities, bilateral legs; I08.1 Rheumatic disorders of both mitral and tricuspid valves; I77.9 Disorder of arteries and arterioles, unspecified; Z91.14 Patient's other noncompliance with medication regimen; Z72.89 Other problems related to lifestyle; Z79.01 Long term (current) use of anticoagulants; Z95.810 Presence of automatic (implantable) cardiac defibrillator; Z82.49 Family history of ischemic heart disease and other diseases of the circulatory system; Z85.29 Personal history of malignant neoplasm of other respiratory and intrathoracic organs
CPT/HCPCS: 36415; 70450; 70490; 71260; 72131; 74177; 80048; 80053; 81000; 83605; 83690; 84443; 84484; 85007; 85025; 85027; 85610; 85730; 93005; 93306; 96374; 96375; 96376